=== PATIENT | female | born 1945 | race Caucasian/White ===

== ENCOUNTER → 2017-03-08 | Outpatient (CLI) | payer BC ==
[~2017-03-08] MED LIST: BUPR-79 PO; CHOL1000 PO; CRG125 PO; FERR1TAB61 PO; IPRA1AER2 INH; PERFLUTREN LIPID MICROSPHERE (DEFINITY) IV ONE; SYMIN160 INH; TRIA37.5 PO
--- NOTE | 2017-03-08 16:56 | ECHOCARDIOGRAM REPORT ---
*NOTICE TO RECEIVING CONSTITUTION PARTY AGENCY This information is strictly Confidential and protected under [place] law. [place] law prohibits you from making any further disclosure of this information unless further disclosure is expressly permitted by the written consent of the person to whom it pertains or is authorized by law. A general authorization for the release of medical or other information is not sufficient for this purpose. Hospital accepts no responsibility if the information is made available to any other person, INCLUDING THE PATIENT. Interpretation Summary * Name: MAXIMILINAO HAMMOND Study Date: 03/08/2017 01:08 PM * Patient Location: [facility] HR: 122 * : 1945 (M/d/yyyy) Gender: Female Height: 63 in * Age: 71 yrs Ethnicity: CA Weight: 165 lb * Ordering Physician: Yohana Servin * Referring Physician: Yohana Servin * Performed By: July Escalona RDCS * * Reason For Study: SOB, COPD * BSA: 1.8 m2 * -- Conclusions -- * There is mild concentric left ventricular hypertrophy. * The left ventricle is hyperdynamic. * Grade I diastolic dysfunction, (abnormal relaxation pattern). * The right atrium is moderately dilated. * Right ventricular systolic pressure is elevated at 40-50mmHg. * Compared to study from July 14, 2012, the estimated pulmonary pressures are lower, otherwise no significant change Procedure Details * A contrast injection of Definity was performed to improve assessment of LV function. * Contrast was injected into an intravenous site in the right arm. * One vial of Definity ultrasound contrast was diluted in normal saline to a total volume of 10 ml. A total of '2' ml of solution was administered during imaging. * Lot # [id number] of Definity utilized for procedure. * Expiration date MAR 14. * The attending nurse who injected the contrast agent was ALO QUILES RN. Left Ventricle * The left ventricle is normal in size. * There is mild concentric left ventricular hypertrophy. * Ejection Fraction = 55-60%. * The left ventricle is hyperdynamic. * Grade I diastolic dysfunction, (abnormal relaxation pattern). * The left ventricular wall motion is normal. Right Ventricle * The right ventricle is not well visualized. Atria * The left atrial size is normal. * The right atrium is moderately dilated. Mitral Valve * The mitral valve is not well visualized. * Significant mitral regurgitation is absent. Tricuspid Valve * The tricuspid valve is not well visualized. * There is mild tricuspid regurgitation. * Right ventricular systolic pressure is elevated at 40-50mmHg. Aortic Valve * The aortic valve is normal in structure and function. * No hemodynamically significant valvular aortic stenosis. * There is no significant aortic regurgitation. Pericardium/Pleural * Trace pericardial effusion Great Vessels * The inferior vena cava is mildly dilated. MMode 2D Measurements and Calculations IVSd 1.4 cm IVSs 2.2 cm LVIDd 4.2 cm LVIDs 2.9 cm LVPWd 1.5 cm LVPWs 2.0 cm IVS/LVPW 0.96 FS 31.0 % EDV(Teich) 78.0 ml ESV(Teich) 31.9 ml EF(Teich) 59.1 % EDV(cubed) 73.4 ml ESV(cubed) 24.1 ml EF(cubed) 67.1 % % IVS thick 52.3 % % LVPW thick 34.0 % LV mass(C)d 241.0 grams LV mass(C)dI 135.3 grams/m\S\2 LV mass(C)s 277.9 grams LV mass(C)sI 155.9 grams/m\S\2 SV(Teich) 46.1 ml SI(Teich) 25.9 ml/m\S\2 SV(cubed) 49.3 ml SI(cubed) 27.7 ml/m\S\2 LA dimension 3.0 cm LVAd ap4 18.8 cm\S\2 LVLd ap4 6.6 cm EDV(MOD-sp4) 43.5 ml LVAs ap4 11.1 cm\S\2 LVLs ap4 6.1 cm ESV(MOD-sp4) 17.8 ml EF(MOD-sp4) 59.1 % LVAd ap2 23.8 cm\S\2 LVLd ap2 7.4 cm EDV(MOD-sp2) 61.2 ml LVAs ap2 14.4 cm\S\2 LVLs ap2 7.2 cm ESV(MOD-sp2) 25.0 ml EF(MOD-sp2) 59.2 % SV(MOD-sp4) 25.7 ml SI(MOD-sp4) 14.4 ml/m\S\2 SV(MOD-sp2) 36.2 ml SI(MOD-sp2) 20.3 ml/m\S\2 Doppler Measurements and Calculations MV E max julian 77.1 cm/sec MV A max julian 122.0 cm/sec MV E/A 0.63 MV dec time 0.17 sec Ao V2 max 129.0 cm/sec Ao max PG 6.7 mmHg Ao max PG (full) 2.2 mmHg LV V1 max PG 4.5 mmHg LV V1 max 105.6 cm/sec TR max julian 325.8 cm/sec
--- NOTE | 2017-03-12 08:52 | PULMONARY FUNCTION TEST ---
CLINICAL DATA: 71-year-old female with height 63 inches and a weight of 165 pounds referred by RENÉE Villarreal for evaluation of COPD. The patient is apparently on Symbicort, Spiriva, and Ventolin. She has a history of 45 pack years of smoking. Spirometry pre- and post-bronchodilator were performed. FINDINGS: Pre-bronchodilator spirometry demonstrates severe obstructive airways disease. FVC is 42% of predicted. FEV1 is 48% of predicted. CSH99-35 was 11% of predicted. There was no significant improvement after inhaled bronchodilator. FVC improved 9%. The other parameters actually decreased. The patient appeared to be getting tired and had difficulty with the post-bronchodilator spirogram. IMPRESSION: Severe obstructive airways disease without significant improvement after inhaled bronchodilator. MTDD
== END | disposition home or self-care (01) ==
LOC: C.CPL 12:46
PROVIDERS: ATTEND Nurse Practitioner
DX: Z00.00 Encounter for general adult medical examination without abnormal findings (principal); J44.9 Chronic obstructive pulmonary disease, unspecified; I11.0 Hypertensive heart disease with heart failure; I50.1 Left ventricular failure, unspecified; I50.30 Unspecified diastolic (congestive) heart failure

== ENCOUNTER 2018-10-18 20:54 | Inpatient (IN) ==
[~2018-10-18 20:54] MED LIST changes: -BUPR-79 PO; -CHOL1000 PO; -CRG125 PO; +ETOMIDATE 2 MG/ML 20 ML VIAL IV ONE; -FERR1TAB61 PO; -IPRA1AER2 INH; +KETAMINE HCL INJ 50 MG/ML 10 ML VIAL IV ONE; -PERFLUTREN LIPID MICROSPHERE (DEFINITY) IV ONE; +ROCURONIUM BROMIDE 10 MG/ML 5 ML VIAL IV ONE; -SYMIN160 INH; -TRIA37.5 PO
[2018-10-18] MEDS ORDERED: PROPOFOL IV EMULSION 10 MG/ML 100 ML VIAL IV ONE (21:01)
[2018-10-18] MEDS ORDERED: KETAMINE HCL INJ 50 MG/ML 10 ML VIAL IV STA ×2 (21:14→21:28)
[2018-10-18] MEDS ORDERED: ALBUT/IPRATROP 3MG/0.5MG NEB 3 ML VIAL NEB ONE (21:35)
[2018-10-18 21:38] LABS: Base Excess VBG 2.5 mEq/L; Oxygen Saturation VBG 94.9 %; pH VBG 7.18 (7.36-7.41)
[2018-10-18 21:48] LABS: Albumin Level 3.5 gm/dl (3.4-5.0); BUN Creatinine Ratio 14.4 (10-20); Calcium 9.9 mg/dl (8.5-10.1); Creatinine Clr Calc Pharmacy 49.6 ml/min; Est GFR (African American) 63.5; Est GFR (Non-African American) 54.8; Magnesium 2.9 mg/dl (1.8-2.4); Potassium 4.6 mmol/L (3.5-5.1)
[2018-10-18 21:52] LABS: Albumin Globulin Ratio 0.9 (0.9-2); Bilirubin,Total 0.4 mg/dl (0.2-1); Globulin 3.8 gm/dl (2.5-4.0); Total Protein 7.3 gm/dl (6.4-8.2); Troponin I 0.021 ng/ml (0-0.045)
[2018-10-18] MEDS ORDERED: ROCURONIUM BROMIDE 10 MG/ML 10 ML VIAL IV ONE (21:54)
[2018-10-18] MEDS ORDERED: ETOMIDATE 2 MG/ML 20 ML VIAL IV ONE (21:54)
--- NOTE | 2018-10-18 21:59 | XRay Report ---
XR chest 1V portable HISTORY: Dyspnea COMPARISON: Chest 10/01/2018. FINDINGS: Emphysema. No new focal lung consolidations to suggest pneumonia. No evidence for pulmonary edema. No pleural fusions. No pneumothorax. The heart is normal in size. IMPRESSION: No significant change compared to the prior study. No acute process. Emphysema. Electronically signed by: Albert Rios M.D. 10/18/2018 9:58 PM
[2018-10-18] MEDS: PROPOFOL 1,000 MG/100 ML VIAL IV SCH ×2 (22:05→22:59)
--- NOTE | 2018-10-18 22:10 | XRay Report ---
XR chest 1V portable HISTORY: intubation COMPARISON: Chest 10/18/2018. FINDINGS: The endotracheal tube terminates approximately 2.5 cm from the eduardo. Emphysema. No new fo chace lung consolidations to suggest pneumonia. No evidence for pulmonary edema. The heart is normal in size. IMPRESSION: The endotracheal tube terminates 2.5 cm from the eduardo. Electronically signed by: Albert Rios M.D. 10/18/2018 10:09 PM
--- NOTE | 2018-10-18 22:16 | Emergency Department Note ---
Entered by Prakash Montilla acting as a scribe for Vaibhav Whittington M.D. History of Present Illness General Chief complaint: Respiratory Distress Stated complaint: RESP. DISTRESS Source: EMS History of Present Illness Onset (ago): hour(s) (prior to arrival) Location: chest (respiratory distress) Pain Consistency: + other (worsening) Relieved By: + none Associated symptoms: + shortness of breath and + other (episodes of V-tach) Treatments prior to arrival: other (125 mg solumedrol, 4 duonebs, 1 gram magnesium ) The patient is a 72 year old F who presents to the Emergency Room with complaints of worsening respiratory issues that started prior to arrival. The majority of the HPI was provided by EMS. EMS states that the patient is experiencing shortness of breath. EMS adds that in the ambulance, the patient was experiencing episodes of V-tach. EMS notes that the patient was given 125 mg of solumedrol, 4 duonebs, and 1 gram of magnesium in the ambulance. The patient has a history of anxiety, hypertension, heart disease, and COPD. At 2129, the patient's called into the ED to provide the rest of the HPI. He states that the patient has worsening shortness of breath starting today. He denies that the patient has any other complaints. He adds that this has happened with the patient before due to her COPD. He notes that he will come into the hospital tomorrow to see the patient. The HPI is limited due to the patient�s condition. Home Medications Home Medications Medication Instructions Recorded Confirmed Type albuterol sulfate [Proventil HFA] 2 puff INHALATION UD PRN 10/18/18 10/18/18 History amlodipine 5 mg PO DAILY 10/18/18 10/18/18 History atorvastatin 40 mg PO HS 10/18/18 10/18/18 History budesonide-formoterol [Symbicort] 2 puff INHALATION BID 10/18/18 10/18/18 History bupropion HCl [Wellbutrin SR] 150 mg PO DAILY 10/18/18 10/18/18 History carvedilol 12.5 mg PO BID 10/18/18 10/18/18 History cholecalciferol (vitamin D3) 2,000 unit PO DAILY 10/18/18 10/18/18 History [Vitamin D3] tiotropium bromide [Spiriva with 1 cap INHALATION DAILY 10/18/18 10/18/18 History HandiHaler] triamterene-hydrochlorothiazid 1 cap PO DAILY 10/18/18 10/18/18 History Allergies Allergy/AdvReac Type Severity Reaction Status Date / Time No Known Allergies Allergy Unverified 03/11/14 01:27 Past Med/Surg History Medical History Anxiety (Chronic) Hypertension (Chronic) Heart disease (Chronic) COPD (chronic obstructive pulmonary disease) (Chronic) Family History Other No significant family history Social History Preferred Language: Uzbek marital status: Current Living Situation: Spouse Feels Safe at Home: Yes Smoking Status: Current every day smoker Tobacco Type: cigarettes packs per day: 0.5 Hx Alcohol Use: No Hx Substance Use: No Review of Systems See HPI for pertinent positives & negatives. The ROS is limited due to the patient's condition. Physical Exam Vital Signs Vital Signs - 24 hr 10/18/18 21:05 10/18/18 21:17 10/18/18 21:31 Temperature 37.2 C Temperature Source Axillary Sepsis Recent Fever Within 48 Hours No Sepsis Action Taken by Nursing No Action Required End-Tidal CO2 Pulse Rate 143 H 143 H Pulse Rate [Right Finger] Pulse Rate from SpO2 Sensor Pulse Rhythm Irregular Pulse Rhythm [Right Finger] Pulse Strength Normal Pulse Strength [Right Finger] Respiratory Rate 36 H 28 H Respiratory Effort / Characteristics Spontaneous Labored Labored Short of Breath Respiratory Depth Normal Deep Respiratory Pattern Regular Tachypnea Blood Pressure 148/108 H Blood Pressure [Left Arm] Blood Pressure Mean 121 Blood Pressure Mean [Left Arm] Blood Pressure Position Sitting Pulse Oximetry 96 95 94 Oxygen Delivery Method BiPAP BiPAP Fraction of Inspired Oxygen 50 SaO2/FiO2 Ratio 10/18/18 21:32 10/18/18 21:42 10/18/18 21:59 Temperature Temperature Source Sepsis Recent Fever Within 48 Hours Sepsis Action Taken by Nursing End-Tidal CO2 48 Pulse Rate 118 H Pulse Rate [Right Finger] 133 H Pulse Rate from SpO2 Sensor Pulse Rhythm Pulse Rhythm [Right Finger] Regular Pulse Strength Pulse Strength [Right Finger] Respiratory Rate 24 16 Respiratory Effort / Characteristics Spontaneous Respiratory Depth Deep Respiratory Pattern Blood Pressure Blood Pressure [Left Arm] 131/99 Blood Pressure Mean Blood Pressure Mean [Left Arm] 109 Blood Pressure Position Pulse Oximetry 94 96 Oxygen Delivery Method BiPAP Fraction of Inspired Oxygen 40 40 30 SaO2/FiO2 Ratio 235 10/18/18 22:23 10/18/18 22:30 10/18/18 22:45 Temperature Temperature Source Sepsis Recent Fever Within 48 Hours Sepsis Action Taken by Nursing End-Tidal CO2 62 Pulse Rate 129 H Pulse Rate [Right Finger] 130 H Pulse Rate from SpO2 Sensor 129 H Pulse Rhythm Pulse Rhythm [Right Finger] Regular Pulse Strength Pulse Strength [Right Finger] Normal Respiratory Rate 16 Respiratory Effort / Characteristics Non-Labored Mechanically Ventilated Respiratory Depth Normal Respiratory Pattern Regular Blood Pressure Blood Pressure [Left Arm] 169/91 H Blood Pressure Mean Blood Pressure Mean [Left Arm] 117 Blood Pressure Position Pulse Oximetry 98 98 Oxygen Delivery Method Mechanical Vent Mechanical Vent Mechanical Vent Fraction of Inspired Oxygen 30 30 SaO2/FiO2 Ratio 326 10/18/18 22:46 Temperature Temperature Source Sepsis Recent Fever Within 48 Hours Sepsis Action Taken by Nursing End-Tidal CO2 62 Pulse Rate 139 H Pulse Rate [Right Finger] Pulse Rate from SpO2 Sensor 129 H Pulse Rhythm Pulse Rhythm [Right Finger] Pulse Strength Pulse Strength [Right Finger] Respiratory Rate Respiratory Effort / Characteristics Respiratory Depth Respiratory Pattern Blood Pressure 175/94 H Blood Pressure [Left Arm] Blood Pressure Mean 121 Blood Pressure Mean [Left Arm] Blood Pressure Position Pulse Oximetry 98 Oxygen Delivery Method Mechanical Vent Fraction of Inspired Oxygen 30 SaO2/FiO2 Ratio GENERAL: Awake, alert, agitated-appearing, pulling at BiPAP mask. HENT: Normocephalic, atraumatic. EYES: Normal conjunctiva. Sclera non-icteric. NECK: Supple. No nuchal rigidity. RESPIRATORY: Tachypneic, minimal breath sounds appreciated. Increased WOB. CARDIAC: Tachycardic rate. Normal rhythm. Extremities warm and well perfused. GI: Soft, non-distended. No tenderness to palpation. No rebound or guarding. No masses. MUSCULOSKELETAL: Atraumatic. Chest examination reveals no tenderness. LOWER EXTREMITIES: Calves are equal size bilaterally and non-tender. 2+ bilateral lower extremity swelling. NEURO: Normal sensorium. No sensory or motor deficits noted. No facial droop. SKIN: Warm and dry. No jaundice noted. Procedures Intubation Time out performed: Yes sedative: Etomidate Mg Given: 15 paralytic: Rocuronium Mg Given: 100 Laryngoscope: other (glidescope) ET Tube Size: 7 ET Tube Uncuffed: Yes Tube Secured Depth (cm): 22 Tube Secured Location: teeth Tube Placement Confirmation: visualized tube passing through cords, equal breath sounds bilaterally and no breath sounds over epigastrium Patient Tolerated Procedure: well and no complications Intubation Complications: none Course 2100: Past medical records reviewed. The patient was evaluated in room B1. A complete history and physical exam was performed. 2129: The patient's called into the ED to provide more of the patient's HPI. 2149: I performed an intubation procedure on the patient. 2206: I reviewed the patient's case with Dr. Honorio Montes De Oca, Critical Care [employer] [place]. 2244: I reviewed the patient's case with Dr. Victor Manuel Velazco, [facility] Hospitalist. He will evaluate the patient for further management. Consultations Consultation #1: I reviewed the patient's case with Dr. Honorio Montes De Oca, [facility] [employer]. Time: 22:07 Consultation #2: I reviewed the patient's case with Dr. Victor Manuel Velazco, [facility] Hospitalist. He will evaluate the patient for further management. Time: 22:45 Administered Medications Propofol (Diprivan) 1,000 mg in 100 mls @ 2.46 mls/hr IV .Q24H MARTA; Protocol Stop: 10/21/18 21:59 Last Admin: 10/18/18 22:59 Dose: 5 mcg/kg/min, 2.5 mls/hr Documented by: [id number] Cosigned by: [id number] Discontinued Medications Albuterol (Duoneb) 12 ml NEB ONE ONE Stop: 10/18/18 21:36 Last Admin: 10/18/18 21:58 Dose: 12 ml Documented by: [id number] Etomidate (Amidate) 15 mg IV NOW ONE Stop: 10/18/18 21:55 Last Admin: 10/18/18 21:46 Dose: 15 mg Documented by: [id number] Furosemide (Lasix) 40 mg IV NOW STA Stop: 10/18/18 22:48 Last Admin: 10/18/18 23:03 Dose: 40 mg Documented by: [id number] Ketamine HCl (Ketalar Steri-Vial) 60 mg IV NOW STA Stop: 10/18/18 21:15 Last Admin: 10/18/18 21:15 Dose: 60 mg Documented by: [id number] Ketamine HCl (Ketalar Steri-Vial) 40 mg IV NOW STA Stop: 10/18/18 21:29 Last Admin: 10/18/18 21:30 Dose: 40 mg Documented by: [id number] Propofol (Diprivan) Confirm Administered Dose 1,000 mg IV .STK-MED ONE Stop: 10/18/18 21:02 Last Admin: 10/18/18 21:53 Dose: 1,000 mg Documented by: [id number] Cosigned by: [id number] Rocuronium Randolph (Zemuron) 100 mg IV ONE ONE Stop: 10/18/18 21:55 Last Admin: 10/18/18 21:46 Dose: 100 mg Documented by: [id number] Cosigned by: [id number] Medical Decision Making Differential Diagnosis Differential diagnosis includes: infections, reactive airway disease, pneumonia, pneumothorax, COPD, CHF, cardiac ischemia, pulmonary embolism, musculoskeletal, gastrointestinal, as well as others were entertained. Medical Records Attestation: I reviewed the patient's medical records. Home Medications Current Medication List: was personally reviewed by me Laboratory Data Attestation: I reviewed the patient's lab results. Result diagrams: 10/18/18 21:15 10/18/18 21:15 Lab Results 10/18/18 10/18/18 10/18/18 Range/Units 21:15 21:15 21:22 WBC 21.46 H (4.8-10.8) K/uL RBC 4.24 (4.2-5.4) M/uL Hgb 12.3 (12.0-16.0) g/dL Hct 39.1 (37-47) % MCV 92.2 (80-100) fL MCH 29.0 (25-34) pg MCHC 31.5 L (32-36) g/dL RDW Std Deviation 50.7 H (36.4-46.3) fL RDW Coeff of Michelle 15.0 H (11.5-14.5) % Plt Count 301 (130-400) K/uL MPV 12.4 H (7.4-10.4) fL Immature Gran % (Auto) 0.7 % Neut % (Auto) 64.4 % Lymph % (Auto) 23.6 % [place] % (Auto) 7.9 % Eos % (Auto) 3.2 % Baso % (Auto) 0.2 % Immature Gran # (Auto) 0.15 H (0.00-0.02) K/uL Neut # (Auto) 13.81 H (1.4-6.5) K/uL Lymph # (Auto) 5.07 H (1.2-3.4) K/uL [place] # (Auto) 1.70 H (0.11-0.59) K/uL Eos # (Auto) 0.68 H (0-0.5) K/uL Baso # (Auto) 0.05 (0-0.2) K/uL RBC Morphology Unremarkable VBG pH (7.36-7.41) VBG pCO2 (38-50) mmHg VBG pO2 mmHg VBG HCO3 mmol/L VBG O2 Saturation % VBG Base Excess mEq/L Barometric Pressure mm/Hg Sodium 138 (136-145) mmol/L Potassium 4.6 (3.5-5.1) mmol/L Chloride 100 (98-107) mmol/L Carbon Dioxide 34 H (21-32) mmol/L Anion Gap 5.0 (3-11) BUN 15 (7-18) mg/dl Creatinine 1.01 (0.6-1.2) mg/dl Est Cr Clr Drug Dosing 49.6 ml/min Est GFR ( Amer) 63.5 Est GFR (Non-Af Amer) 54.8 BUN/Creatinine Ratio 14.4 (10-20) Glucose 199 H (70-99) mg/dl POC Lactic Acid Miko 1.15 (0.90-1.70) mmol/L Calcium 9.9 (8.5-10.1) mg/dl Magnesium 2.9 H (1.8-2.4) mg/dl Total Bilirubin 0.4 (0.2-1) mg/dl AST 16 (15-37) U/L ALT 19 (12-78) U/L Alkaline Phosphatase 105 (45-117) U/L Troponin I 0.021 (0-0.045) ng/ml NT-Pro-B Natriuret Pep 171 (0-900) pg/ml Total Protein 7.3 (6.4-8.2) gm/dl Albumin 3.5 (3.4-5.0) gm/dl Globulin 3.8 (2.5-4.0) gm/dl Albumin/Globulin Ratio 0.9 (0.9-2) Urine Color Urine Appearance (Clear) Urine pH (4.5-7.5) Ur Specific St[place]ett (1.000-1.030) Urine Protein (Negative) Urine Glucose (UA) (Negative) Urine Ketones (Negative) Urine Blood (Negative) Urine Nitrite (Negative) Urine Bilirubin (Negative) Urine Urobilinogen (Negative) Ur Leukocyte Esterase (Negative) Urine WBC (Auto) (0-5) /hpf Urine RBC (Auto) (0-4) /hpf U Hyaline Cast (Auto) (0-5) /lpf U Epithel Cells (Auto) (0-5) /lpf Urine Bacteria (Auto) (Negative) Ur Renal Epithelial Cell (0-5) /lpf 10/18/18 10/18/18 Range/Units 21:23 22:20 WBC (4.8-10.8) K/uL RBC (4.2-5.4) M/uL Hgb (12.0-16.0) g/dL Hct (37-47) % MCV (80-100) fL MCH (25-34) pg MCHC (32-36) g/dL RDW Std Deviation (36.4-46.3) fL RDW Coeff of Michelle (11.5-14.5) % Plt Count (130-400) K/uL MPV (7.4-10.4) fL Immature Gran % (Auto) % Neut % (Auto) % Lymph % (Auto) % [place] % (Auto) % Eos % (Auto) % Baso % (Auto) % Immature Gran # (Auto) (0.00-0.02) K/uL Neut # (Auto) (1.4-6.5) K/uL Lymph # (Auto) (1.2-3.4) K/uL [place] # (Auto) (0.11-0.59) K/uL Eos # (Auto) (0-0.5) K/uL Baso # (Auto) (0-0.2) K/uL RBC Morphology VBG pH 7.18 L (7.36-7.41) VBG pCO2 92 H (38-50) mmHg VBG pO2 89 mmHg VBG HCO3 34 mmol/L VBG O2 Saturation 94.9 % VBG Base Excess 2.5 mEq/L Barometric Pressure 734.4 mm/Hg Sodium (136-145) mmol/L Potassium (3.5-5.1) mmol/L Chloride (98-107) mmol/L Carbon Dioxide (21-32) mmol/L Anion Gap (3-11) BUN (7-18) mg/dl Creatinine (0.6-1.2) mg/dl Est Cr Clr Drug Dosing ml/min Est GFR ( Amer) Est GFR (Non-Af Amer) BUN/Creatinine Ratio (10-20) Glucose (70-99) mg/dl POC Lactic Acid Miko (0.90-1.70) mmol/L Calcium (8.5-10.1) mg/dl Magnesium (1.8-2.4) mg/dl Total Bilirubin (0.2-1) mg/dl AST (15-37) U/L ALT (12-78) U/L Alkaline Phosphatase (45-117) U/L Troponin I (0-0.045) ng/ml NT-Pro-B Natriuret Pep (0-900) pg/ml Total Protein (6.4-8.2) gm/dl Albumin (3.4-5.0) gm/dl Globulin (2.5-4.0) gm/dl Albumin/Globulin Ratio (0.9-2) Urine Color Yellow Urine Appearance Cloudy A (Clear) Urine pH 6.0 (4.5-7.5) Ur Specific [place]ett 1.019 (1.000-1.030) Urine Protein 2+ H (Negative) Urine Glucose (UA) Negative (Negative) Urine Ketones Negative (Negative) Urine Blood 1+ H (Negative) Urine Nitrite Negative (Negative) Urine Bilirubin Negative (Negative) Urine Urobilinogen Negative (Negative) Ur Leukocyte Esterase Negative (Negative) Urine WBC (Auto) 1-5 (0-5) /hpf Urine RBC (Auto) 5-10 H (0-4) /hpf U Hyaline Cast (Auto) 1-5 (0-5) /lpf U Epithel Cells (Auto) >30 H (0-5) /lpf Urine Bacteria (Auto) Negative (Negative) Ur Renal Epithelial Cell 0-5 (0-5) /lpf Imaging Data Radiologist's Impression: Radiology results as stated below per my review and the radiologist's interpretation: XR chest 1V portable HISTORY: Dyspnea COMPARISON: Chest 10/01/2018. FINDINGS: Emphysema. No new focal lung consolidations to suggest pneumonia. No evidence for pulmonary edema. No pleural fusions. No pneumothorax. The heart is normal in size. IMPRESSION: No significant change compared to the prior study. No acute process. Emphysema. Electronically signed by: Albert Rios M.D. 10/18/2018 9:58 PM XR chest 1V portable HISTORY: intubation COMPARISON: Chest 10/18/2018. FINDINGS: The endotracheal tube terminates approximately 2.5 cm from the eduardo. Emphysema. No new focal lung consolidations to suggest pneumonia. No evidence for pulmonary edema. The heart is normal in size. IMPRESSION: The endotracheal tube terminates 2.5 cm from the eduardo. Electronically signed by: Albert Rios M.D. 10/18/2018 10:09 PM ECG Data Attestation: I personally reviewed and interpreted this ECG as follows: Indication: SOB/dyspnea Rate (beats per minute): 144 Rhythm: sinus tachycardia Findings: + ST depression (Lateral); no PVC Blood Pressure Blood Pressure Findings: Elevated blood pressure Blood Pressure Disposition: further management by hospitalist MAGALY Narrative Patient is a 72-year-old female history of COPD presenting today with severe respiratory distress for EMS. Patient agitated on CPAP here stating she cannot breathe. Limited ability to obtain history. Patient does not report pain. Is a little bit of leg swelling. Was significant hypertensive and was hypoxic for EMS. Was oxygenating okay and tried some ketamine for her agitation to see if you tolerate BiPAP. Patient continued to have issues with agitation and decision was made proceed with intubation. Contact the patient's who was made aware of her status; he was unable to give clear code status. Chest x- ray does not show evidence of pneumonia pneumothorax. Lower suspicion this is PE. Patient received Solu-Medrol and magnesium was for DuoNeb's prior to arrival. Given his a DuoNeb's here. Sinus tachycardia notable and somewhat improved after intubation. Believe is likely adrenergic driven. Slight detectable but not abnormal troponin again I feel is more likely demand. Given additional DuoNeb here while on the ventilator. Intubated without complication. ICU doctor made aware. [facility] hospitalist contacted for admission. D-dimer was sent and given some Lasix for question of volume overload. BNP is not significantly elevated. 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 No significant ectopy here. Impression & Plan Acute respiratory failure with hypercapnia Critical Care Time I have personally spent 45 minutes of critical care time in the direct management of this patient. This includes bedside care, interpretation of diagnostic studies, and testing, discussion with consultants, patient, and family members, and other required patient management activities. This 45 minutes is in excess of all separately billable procedures. Critical Care Time: Yes Discharge Plan Visit Data Chief Complaint: Respiratory Distress Stated Complaint: RESP. DISTRESS ED Provider: Vaibhav Whittington Discharge Problem: Acute respiratory failure with hypercapnia Patient Disposition: Admitted As Inpatient Discharge Instructions Interventions: ED Discharge Assessment Last Done: 10/18/18 23:38 The scribe's documentation has been prepared under my direction and personally reviewed by me in its entirety. I confirm that the note above accurately reflects all work, treatment, procedures, and medical decision making performed by me.
[2018-10-18 22:31] LABS: Appearance Urine Cloudy (Clear); Bacteria Urine Automated Negative (Negative); Bilirubin Urine Negative (Negative); Blood Urine 1+ (Negative); Color Urine Yellow; Epithelial Cell Urine Auto >30 /lpf (0-5); Glucose Urine UA Negative (Negative); Ketones Urine Negative (Negative); Leukocyte Esterase Urine Negative (Negative); Nitrite Urine Negative (Negative); Protein Urine 2+ (Negative); Specific Gravity Urine 1.019 (1.000-1.030); Urobilinogen Urine Negative (Negative)
[2018-10-18 22:43] LABS: Renal Epithelial Cells Urine 0-5 /lpf (0-5)
[2018-10-18] MEDS ORDERED: FUROSEMIDE 40 MG/4 ML VIAL IV STA (22:47)
[2018-10-18 22:50] LABS: Hematocrit (blood only) 39.1 % (37-47); Hemoglobin 12.3 g/dL (12.0-16.0); Mean Corpuscular Hgb Conc 31.5 g/dL (32-36); Mean Corpuscular Volume 92.2 fL (80-100); Mean Platelet Volume 12.4 fL (7.4-10.4); Platelet Count 301 K/uL (130-400); RDW Standard Deviation 50.7 fL (36.4-46.3); Red Blood Count 4.24 M/uL (4.2-5.4); White Blood Count 21.46 K/uL (4.8-10.8)
[2018-10-18] MEDS ORDERED: ICU PROTOCOL FOR HYPERGLYCEMIA PRN (22:50)
[2018-10-18] MEDS ORDERED: PROPOFOL 1,000 MG/100 ML VIAL IV SCH (23:00)
--- NOTE | 2018-10-18 23:02 | History & Physical Report ---
Date of Service October 18, 2018 Assessment & Plan (1) Acute respiratory failure with hypercapnia: 72 y/o F Hx COPD, HTN, HLD, diastolic CHF, history of PE. Presents from home with respiratory distress. Apparently she had progressive dyspnea over the past 2 days. She arrived at the hospital tachypneic, severely hypertensive and mentating poorly. She was emergently intubated therefore. The pt is unable to provide a history at present. Attempts to contact her have been unsuccessful at the time of admission. The ER attending was able to speak with her and noted that he did not display a command of her medical history. A history is therefore aggregated from prior medical records. Initial labs are notable for respiratory acidosis with a C02 of 90 and leukocytosis. A CXR is reported as clear. 1) Hypercapnic respiratory failure - likely COPD exacerbation - Pt is intubated - scheduled nebs, IV steroids, antibiotics. 2) CHF - question of exacerbation - she has LE edema and diastolic dysfunction on echo 2016. Provided with an initial 40mg Lasix in the ER - I/O, daily weights. repeat echo ordered for AM. Cont Carvedilol 3) Hypetensive urgency - SBP 240 on arrival - has improved with vent - will apply NTG x 1. Takes Triamterene/HCTZ normally - held in favor of Lasix. PRN Hydralazine ordered. 4) DM - Glu 199 on admission - sliding scale coverage. 5) HKD - cont statin 6) History of PE - CTA pending Full code - Lovenox Total time for this admit including review of labs, meds, imaging, records - discussion with pt and ER attending - [facility] critical care time - 45 min History of Present Illness Chief Complaint: respiratory distress Primary Care Provider: Yohana Servin 72 y/o F Hx COPD, HTN, HLD, diastolic CHF, history of PE. Presents from home with respiratory distress. Apparently she had progressive dyspnea over the past 2 days. She arrived at the hospital tachypneic, severely hypertensive and mentating poorly. She was emergently intubated therefore. The pt is unable to provide a history at present. Attempts to contact her have been unsuccessful at the time of admission. The ER attending was able to speak with her and noted that he did not display a command of her medical history. A history is therefore aggregated from prior medical records. Initial labs are notable for respiratory acidosis with a C02 of 90 and leukocytosis. A CXR is reported as clear. PMH: 1) HTN 2) HLD 3) Grade I diastolic CHF - echo 2016 4) History of PE 5) DM II - may not be treated 6) Obese 7) COPD Surgical: not known Social: Per records - does not smoke or drink Family: DM, HTN Allergies Allergy/AdvReac Type Severity Reaction Status Date / Time No Known Allergies Allergy Unverified 03/11/14 01:27 Home Medications Home Medications Medication Instructions Recorded Confirmed Type albuterol sulfate [Proventil HFA] 2 puff INHALATION UD PRN 10/18/18 10/18/18 History amlodipine 5 mg PO DAILY 10/18/18 10/18/18 History atorvastatin 40 mg PO HS 10/18/18 10/18/18 History budesonide-formoterol [Symbicort] 2 puff INHALATION BID 10/18/18 10/18/18 History bupropion HCl [Wellbutrin SR] 150 mg PO DAILY 10/18/18 10/18/18 History carvedilol 12.5 mg PO BID 10/18/18 10/18/18 History cholecalciferol (vitamin D3) 2,000 unit PO DAILY 10/18/18 10/18/18 History [Vitamin D3] tiotropium bromide [Spiriva with 1 cap INHALATION DAILY 10/18/18 10/18/18 History HandiHaler] triamterene-hydrochlorothiazid 1 cap PO DAILY 10/18/18 10/18/18 History Past Med/Surg History Medical History Anxiety (Chronic) Hypertension (Chronic) Heart disease (Chronic) COPD (chronic obstructive pulmonary disease) (Chronic) Family History Other No significant family history Social History Preferred Language: Belarusian marital status: Current Living Situation: Spouse Feels Safe at Home: Yes Smoking Status: Current every day smoker Tobacco Type: cigarettes packs per day: 0.5 Hx Alcohol Use: No Hx Substance Use: No Review of Systems Review of Systems: Cannot obtain Physical Exam Physical Exam: General: Sedated/intubated - received paralytic ENT: No erythema or exudates, no thrush Eyes: NICHOLAS, EOMI Head and neck: Normocephalic, atraumatic - JVD exam was not possible due to habitus Chest/heart: Nontender, S1,2, RRR, no murmurs, no gallops Lungs: Poor air movement - exam is compromised by vent noises Abdomen: Nontender, nondistended, BS+ Neuro: Deferred - pupils are equal - received paralytic and propofol Musculoskeletal: No joint inflammation, muscle tenderness, FROM Skin: No acute rashes or ulcers Extremities: ++ edema no CC Results & Data Vital Signs (Past 12 Hours) Vital Signs Temp Pulse Pulse Resp BP BP Pulse Ox 10/18/18 22:30 130 H 16 169/91 H 98 10/18/18 21:59 118 H 16 96 10/18/18 21:42 133 H 24 131/99 94 10/18/18 21:31 94 10/18/18 21:17 99.0 F 143 H 28 H 148/108 H 95 10/18/18 21:05 143 H 36 H 96
[2018-10-18 23:06] LABS: Basophils # (auto) 0.05 K/uL (0-0.2); Basophils % (auto) 0.2 %; Eosinophils # (auto) 0.68 K/uL (0-0.5); Eosinophils % (auto) 3.2 %; Immature Granulocytes # (auto) 0.15 K/uL (0.00-0.02); Immature Granulocytes % (auto) 0.7 %; Lymphocytes # (auto) 5.07 K/uL (1.2-3.4); Lymphocytes % (auto) 23.6 %; Monocytes % (auto) 7.9 %; Neutrophils # (auto) 13.81 K/uL (1.4-6.5); Neutrophils % (auto) 64.4 %; RBC Morphology Unremarkable
[2018-10-18] MEDS ORDERED: GLUCAGON FOR INJ 1 MG VIAL IM PRN (23:30)
[2018-10-18] MEDS ORDERED: CARBOHYDRATES FOR HYPOGLYCEMIA PO PRN (23:30)
[2018-10-18] MEDS ORDERED: DEXTROSE 50% 50 ML SYRINGE IV PRN (23:30)
[2018-10-18] MEDS ORDERED: GLUCOSE 40% GEL 15 GM TUBE PO PRN (23:30)
[2018-10-18] MEDS ORDERED: GLUCOSE 10 TABS/TUBE PO PRN (23:30)
[2018-10-19 00:08] LABS: D Dimer 460 ug/L FEU (0-500)
[2018-10-19] MEDS ORDERED: PROPOFOL 1,000 MG/100 ML VIAL IV SCH (00:45)
[2018-10-19 00:48] LABS: iSTAT Arterial Blood Gas HCO3 34 meg/L (19-24); iSTAT Carbon Dioxide 36 mEq/l (24-31); iSTAT FiO2 40 %; iSTAT Site L Radial
[2018-10-19] MEDS ORDERED: IOVERSOL 100ml IV PRN (01:11)
[2018-10-19] MEDS: INSULIN ASPART 100 UNITS/ML 3 ML PEN SC SCH ×5 (01:40→21:49)
[2018-10-19] MEDS: LEVOFLOXACIN/D5W 500 MG/100 ML BAG IV SCH (01:41)
[2018-10-19] MEDS: methylPREDNISolone 60 MG in SYRINGE 0 ML IV SCH ×4 (01:42→19:30)
[2018-10-19] MEDS: NITROGLYCERIN 2% OINTMENT 30GM TUBE EXT ONE ×2 (01:54→02:05)
[2018-10-19] MEDS ORDERED: PNEUMOCOCCAL POLYSACCHARIDES 25 MCG/0.5 ML VIAL/SYR IM ONE (04:45)
[2018-10-19] MEDS ORDERED: PNEUMOCOCCAL ADMINISTRATION CHARGE ONE (04:45)
[2018-10-19 04:49] LABS: Prothrombin Time 10.1 Seconds (9.0-12.0)
[2018-10-19] MEDS: PROPOFOL 1,000 MG/100 ML VIAL IV SCH ×2 (05:15→08:17)
--- NOTE | 2018-10-19 06:22 | CT Scan Report ---
CT chest w con CT DOSE: 513.06 mGy.cm HISTORY: Dyspnea. Chest pain. chf vs COPD - hist of PE TECHNIQUE: Multiaxial CT images of the chest were performed following the intravenous administration of contrast. A dose lowering technique was utilized adhering to the principles of ALARA. COMPARISON: 10/03/2018 FINDINGS: Emphysematous change. Endotracheal tube 2 cm above the eduardo. Mild bibasilar atelectatic c hange. Moderate atherosclerotic change thoracic aorta. No significant or central pulmonary emboli. IMPRESSION: 1. Bibasilar parenchymal atelectatic and/or infiltrative change. 2. Emphysematous change. 3. Study is otherwise negative. The above report was generated using voice recognition software. It may contain grammatical, syntax or spelling errors. Electronically signed by: Piyush Lewis M.D. 10/19/2018 6:21 AM
[2018-10-19] MEDS: ALBUT/IPRATROP 3MG/0.5MG NEB 3 ML VIAL NEB SCH ×3 (07:14→18:52)
[2018-10-19 07:19] LABS: Basophils # (auto) 0.01 K/uL (0-0.2); Basophils % (auto) 0.1 %; Hematocrit (blood only) 37.4 % (37-47); Hemoglobin 11.4 g/dL (12.0-16.0); Immature Granulocytes # (auto) 0.05 K/uL (0.00-0.02); Immature Granulocytes % (auto) 0.3 %; Lymphocytes # (auto) 0.23 K/uL (1.2-3.4); Lymphocytes % (auto) 1.2 %; Mean Corpuscular Volume 91.7 fL (80-100); Mean Platelet Volume 11.6 fL (7.4-10.4); Monocytes # (auto) 0.32 K/uL (0.11-0.59); Monocytes % (auto) 1.7 %; Neutrophils # (auto) 18.56 K/uL (1.4-6.5); Neutrophils % (auto) 96.7 %; Platelet Count 167 K/uL (130-400); RDW Coefficient of Variation 14.8 % (11.5-14.5); RDW Standard Deviation 50.4 fL (36.4-46.3); Red Blood Count 4.08 M/uL (4.2-5.4); White Blood Count 19.17 K/uL (4.8-10.8)
[2018-10-19 07:39] LABS: Mean Corpuscular Hgb Conc 30.5 g/dL (32-36)
[2018-10-19 07:40] LABS: Albumin Level 3.2 gm/dl (3.4-5.0); BUN Creatinine Ratio 13.8 (10-20); Calcium 9.3 mg/dl (8.5-10.1); Creatinine Clr Calc Pharmacy 39.8 ml/min; Est GFR (African American) 49.1; Est GFR (Non-African American) 42.3; Magnesium 2.2 mg/dl (1.8-2.4)
[2018-10-19 07:43] LABS: Albumin Globulin Ratio 0.9 (0.9-2); Bilirubin,Total 0.6 mg/dl (0.2-1); Globulin 3.4 gm/dl (2.5-4.0); Total Protein 6.6 gm/dl (6.4-8.2)
[2018-10-19] MEDS ORDERED: PERFLUTREN LIPID MICROSPHERE (DEFINITY) IV ONE (07:43)
[2018-10-19] MEDS: ENOXAPARIN INJ 40 MG/0.4 ML SYR SQ SCH (08:17)
--- NOTE | 2018-10-19 08:37 | Critical Care Consultation ---
Date of Consultation October 19, 2018 Assessment & Plan (1) Admitted to intensive care unit: Reason Critically Ill: Acute Hypercapnic Resp Failure requiring mechanical ventilation NEURO ICU CAM NEGATIVE No other acute concerns CV HTN Cont Amlodipine 5 mg daily Hypertensive Urgency on arrival. Resolved. Resume Triamterene/HCTZ daily HLD Cont Atorvastatin 40 mg daily CHF ECHO 2017: Grade I diastolic dysfunction, EF 55-60% Repeat ECHO pending Cont carvedilol 12.5 mg BID RESP Acute Hypercapnic Resp Failure Like 2/2 COPD Exacerbation Extubated today. Sating well on 3L NC Cont on Levofloxacin Cont MARTA nebs and IV steroids. Switch to PO tomorrow and taper H/O PE --> CTA: no evidence of PE ABD/GI Advanced diet No other acute concerns RENAL/ Lytes stable No acute concerns ENDO DM2- noninsulin dependent ICU Hyperglycemia protocol ID No acute concern for infectious etiology Cont Levofloxacin as above Cont trend fever curve HEME Stable H/H Cont trend daily LINES/IV ACCESS PIV x2. Andrade. DVT Prophylaxis: Lovenox Full Code Dispo: Stable for Downgrade out of ICU Supervising Physician Co-Signing Physician Notes Dr. Piedra was resident physician during care of patient. I separately evaluated patient for juarez portions of the history and the exam. I was present during the critical portion of medical decision making, and I discussed the case with the resident. I generally agree with the findings and plan. Hypercarbic respiratory failure, patient is alert and following commands neph - 29, parameters within adequate limits we will proceed with extubation at this time. History of Present Illness Attending Physician: Victor Manuel Velazco MD History of Present Illness History obtained from chart review and admitting physician's note. [facility] and further hx unobtainable. No family at bedside at time of consultation. 72 y/o F Hx COPD, HTN, HLD, diastolic CHF, history of PE. Presents from home with respiratory distress. Apparently she had progressive dyspnea over the past 2 days. She arrived at the hospital tachypneic, severely hypertensive and mentating poorly. She was emergently intubated therefore. The pt is unable to provide a history at present. Attempts to contact her have been unsuccessful at the time of admission. The ER attending was able to speak with her and noted that he did not display a command of her medical history. A history is therefore aggregated from prior medical records. Initial labs are notable for respiratory acidosis with a C02 of 90 and leukocytosis. A CXR is reported as clear. PMH: 1) HTN 2) HLD 3) Grade I diastolic CHF - echo 2016 4) History of PE 5) DM II - may not be treated 6) Obese 7) COPD Surgical: not known Social: Per records - does not smoke or drink Family: DM, HTN Allergies Allergies Allergy/AdvReac Type Severity Reaction Status Date / Time No Known Allergies Allergy Unverified 03/11/14 01:27 Home Medications Home Medications Medication Instructions Recorded Confirmed Type albuterol sulfate [Proventil HFA] 2 puff INHALATION UD PRN 10/18/18 10/18/18 History amlodipine 5 mg PO DAILY 10/18/18 10/18/18 History atorvastatin 40 mg PO HS 10/18/18 10/18/18 History budesonide-formoterol [Symbicort] 2 puff INHALATION BID 10/18/18 10/18/18 History bupropion HCl [Wellbutrin SR] 150 mg PO DAILY 10/18/18 10/18/18 History carvedilol 12.5 mg PO BID 10/18/18 10/18/18 History cholecalciferol (vitamin D3) 2,000 unit PO DAILY 10/18/18 10/18/18 History [Vitamin D3] tiotropium bromide [Spiriva with 1 cap INHALATION DAILY 10/18/18 10/18/18 Hi story HandiHaler] triamterene-hydrochlorothiazid 1 cap PO DAILY 10/18/18 10/18/18 History Patient History Medical History Anxiety (Chronic) Hypertension (Chronic) Heart disease (Chronic) COPD (chronic obstructive pulmonary disease) (Chronic) Family History Other No significant family history Social History Preferred Language: Surinamese Communication Ability: Effective Collaborating Supervising Physician Required: No Beliefs That Will Affect Care: None marital status: Current Living Situation: Spouse Feels Safe at Home: Yes Smoking Status: Unknown if ever smoked Review of Systems Review of Systems: Unobtainable due to [facility] Vent Physical Exam Constitutional: WD/WN, vitals as above Eyes: PERRL, conjunctivae normal, anicteric sclerae Respiratory: Diminished Lung sounds. Some expiratory wheezing and crackles auscultated. Cardiovascular: RRR, no murmur, no edema Gastrointestinal (Abdomen): normal bowel sounds, soft, nontender, no hepatosplenomegaly Skin: bruising on forearms Psychiatric: A+Ox3, euthymic affect Lymphatic: 1+ LE edema Results & Data Vital Signs (Past 12 Hours) Vital Signs Temp Pulse Pulse Pulse Resp BP BP 10/19/18 07:16 88 17 10/19/18 07:15 83 16 10/19/18 06:30 81 108/57 L 10/19/18 06:01 81 93/51 L 10/19/18 05:34 83 16 10/19/18 05:31 84 109/51 L 10/19/18 05:30 84 10/19/18 05:16 83 103/57 L 10/19/18 05:00 84 107/57 L 10/19/18 04:45 85 101/61 10/19/18 04:30 86 104/51 L 10/19/18 04:15 87 99/56 L 10/19/18 04:00 36.3 C L 87 96/57 L 10/19/18 03:47 16 10/19/18 03:45 89 92/54 L 10/19/18 03:30 90 93/52 L 10/19/18 03:15 91 H 16 92/53 L 10/19/18 03:00 93 H 93/53 L 10/19/18 02:45 95 H 88/57 L 10/19/18 02:30 96 H 85/50 L 10/19/18 02:19 98 H 82/47 L 10/19/18 02:15 98 H 81/52 L 10/19/18 02:00 102 H 89/51 L 10/19/18 01:47 106 H 118/67 10/19/18 01:30 106 H 91/58 L 10/19/18 01:12 114 H 133/60 10/19/18 00:12 16 10/19/18 00:07 122 H 139/67 10/19/18 00:05 122 H 146/115 H 10/18/18 23:47 36.4 C L 121 H 16 10/18/18 23:31 127 H 158/91 H 10/18/18 23:30 127 H 10/18/18 23:17 131 H 10/18/18 23:16 127 H 16 156/93 H 10/18/18 23:15 128 H 10/18/18 23:01 128 H 165/91 H 10/18/18 23:00 128 H 10/18/18 22:46 139 H 175/94 H 10/18/18 22:45 129 H 10/18/18 22:30 130 H 16 169/91 H 10/18/18 21:59 118 H 16 10/18/18 21:42 133 H 24 131/99 10/18/18 21:31 10/18/18 21:17 37.2 C 143 H 28 H 148/108 H 10/18/18 21:05 143 H 36 H BP Pulse Ox 10/19/18 07:16 96 10/19/18 07:15 96 10/19/18 06:30 97 10/19/18 06:01 95 10/19/18 05:34 98 10/19/18 05:31 97 10/19/18 05:30 97 10/19/18 05:16 96 10/19/18 05:00 96 10/19/18 04:45 94 10/19/18 04:30 93 10/19/18 04:15 91 10/19/18 04:00 93 10/19/18 03:47 10/19/18 03:45 92 10/19/18 03:30 95 10/19/18 03:15 94 10/19/18 03:00 95 10/19/18 02:45 94 10/19/18 02:30 95 10/19/18 02:19 95 10/19/18 02:15 95 10/19/18 02:00 97 10/19/18 01:47 95 10/19/18 01:30 98 10/19/18 01:12 100 10/19/18 00:12 10/19/18 00:07 97 10/19/18 00:05 97 10/18/18 23:47 139/67 98 10/18/18 23:31 91 10/18/18 23:30 91 10/18/18 23:17 95 10/18/18 23:16 95 10/18/18 23:15 96 10/18/18 23:01 98 10/18/18 23:00 98 10/18/18 22:46 98 10/18/18 22:45 98 10/18/18 22:30 98 10/18/18 21:59 96 10/18/18 21:42 94 10/18/18 21:31 94 10/18/18 21:17 95 10/18/18 21:05 96 Laboratory Results Laboratory Results - last 24 hr 10/18/18 10/18/18 10/18/18 20:15 21:15 21:15 WBC 21.46 H RBC 4.24 Hgb 12.3 Hct 39.1 MCV 92.2 MCH 29.0 MCHC 31.5 L RDW Std Deviation 50.7 H RDW Coeff of Michelle 15.0 H Plt Count 301 MPV 12.4 H Immature Gran % (Auto) 0.7 Neut % (Auto) 64.4 Lymph % (Auto) 23.6 [place] % (Auto) 7.9 Eos % (Auto) 3.2 Baso % (Auto) 0.2 Immature Gran # (Auto) 0.15 H Neut # (Auto) 13.81 H Lymph # (Auto) 5.07 H [place] # (Auto) 1.70 H Eos # (Auto) 0.68 H Baso # (Auto) 0.05 Blood Smear Review Pending RBC Morphology Unremarkable PT INR D-Dimer 460 Sample Site POC pH POC pCO2 POC pO2 POC HCO3 POC Total CO2 POC Base Excess POC ABG O2 Sat Dao Test VBG pH VBG pCO2 VBG pO2 VBG HCO3 VBG O2 Saturation VBG Base Excess Barometric Pressure O2 Delivery Device POC O2 Rate Minute Ventilation POC FiO2 Tidal Volume PEEP Sodium 138 Potassium 4.6 Chloride 100 Carbon Dioxide 34 H Anion Gap 5.0 BUN 15 Creatinine 1.01 Est Cr Clr Drug Dosing 49.6 Est GFR ( Amer) 63.5 Est GFR (Non-Af Amer) 54.8 BUN/Creatinine Ratio 14.4 Glucose 199 H POC Glucose POC Lactic Acid Miko Calcium 9.9 Magnesium 2.9 H Total Bilirubin 0.4 AST 16 ALT 19 Alkaline Phosphatase 105 Troponin I 0.021 NT-Pro-B Natriuret Pep 171 Total Protein 7.3 Albumin 3.5 Globulin 3.8 Albumin/Globulin Ratio 0.9 Urine Color Urine Appearance Urine pH Ur Specific Fleming Urine Protein Urine Glucose (UA) Urine Ketones Urine Blood Urine Nitrite Urine Bilirubin Urine Urobilinogen Ur Leukocyte Esterase Urine WBC (Auto) Urine RBC (Auto) U Hyaline Cast (Auto) U Epithel Cells (Auto) Urine Bacteria (Auto) Ur Renal Epithelial Cell Nasal Screen MRSA (PCR) 10/18/18 10/18/18 10/18/18 21:22 21:23 22:20 WBC RBC Hgb Hct MCV MCH MCHC RDW Std Deviation RDW Coeff of Michelle Plt Count MPV Immature Gran % (Auto) Neut % (Auto) Lymph % (Auto) [place] % (Auto) Eos % (Auto) Baso % (Auto) Immature Gran # (Auto) Neut # (Auto) Lymph # (Auto) [place] # (Auto) Eos # (Auto) Baso # (Auto) Blood Smear Review RBC Morphology PT INR D-Dimer Sample Site POC pH POC pCO2 POC pO2 POC HCO3 POC Total CO2 POC Base Excess POC ABG O2 Sat Dao Test VBG pH 7.18 L VBG pCO2 92 H VBG pO2 89 VBG HCO3 34 VBG O2 Saturation 94.9 VBG Base Excess 2.5 Barometric Pressure 734.4 O2 Delivery Device POC O2 Rate Minute Ventilation POC FiO2 Tidal Volume PEEP Sodium Potassium Chloride Carbon Dioxide Anion Gap BUN Creatinine Est Cr Clr Drug Dosing Est GFR ( Amer) Est GFR (Non-Af Amer) BUN/Creatinine Ratio Glucose POC Glucose POC Lactic Acid Miko 1.15 Calcium Magnesium Total Bilirubin AST ALT Alkaline Phosphatase Troponin I NT-Pro-B Natriuret Pep Total Protein Albumin Globulin Albumin/Globulin Ratio Urine Color Yellow Urine Appearance Cloudy A Urine pH 6.0 Ur Specific Fleming 1.019 Urine Protein 2+ H Urine Glucose (UA) Negative Urine Ketones Negative Urine Blood 1+ H Urine Nitrite Negative Urine Bilirubin Negative Urine Urobilinogen Negative Ur Leukocyte Esterase Negative Urine WBC (Auto) 1-5 Urine RBC (Auto) 5-10 H U Hyaline Cast (Auto) 1-5 U Epithel Cells (Auto) >30 H Urine Bacteria (Auto) Negative Ur Renal Epithelial Cell 0-5 Nasal Screen MRSA (PCR) 10/19/18 10/19/18 10/19/18 00:01 00:34 00:36 WBC RBC Hgb Hct MCV MCH MCHC RDW Std Deviation RDW Coeff of Michelle Plt Count MPV Immature Gran % (Auto) Neut % (Auto) Lymph % (Auto) [place] % (Auto) Eos % (Auto) Baso % (Auto) Immature Gran # (Auto) Neut # (Auto) Lymph # (Auto) [place] # (Auto) Eos # (Auto) Baso # (Auto) Blood Smear Review RBC Morphology PT INR D-Dimer Sample Site L Radial POC pH Pending POC pCO2 Pending POC pO2 Pending POC HCO3 34 H POC Total CO2 36 H POC Base Excess 8.0 H POC ABG O2 Sat 93.0 Dao Test NA VBG pH VBG pCO2 VBG pO2 VBG HCO3 VBG O2 Saturation VBG Base Excess Barometric Pressure O2 Delivery Device Ventilator POC O2 Rate 16 Minute Ventilation 7.4 POC FiO2 40 Tidal Volume 450 PEEP 5 Sodium Potassium Chloride Carbon Dioxide Anion Gap BUN Creatinine Est Cr Clr Drug Dosing Est GFR ( Amer) Est GFR (Non-Af Amer) BUN/Creatinine Ratio Glucose POC Glucose 270 H POC Lactic Acid Miko Calcium Magnesium Total Bilirubin AST ALT Alkaline Phosphatase Troponin I NT-Pro-B Natriuret Pep Total Protein Albumin Globulin Albumin/Globulin Ratio Urine Color Urine Appearance Urine pH Ur Specific Fleming Urine Protein Urine Glucose (UA) Urine Ketones Urine Blood Urine Nitrite Urine Bilirubin Urine Urobilinogen Ur Leukocyte Esterase Urine WBC (Auto) Urine RBC (Auto) U Hyaline Cast (Auto) U Epithel Cells (Auto) Urine Bacteria (Auto) Ur Renal Epithelial Cell Nasal Screen MRSA (PCR) Negative 10/19/18 10/19/18 10/19/18 04:03 06:14 07:08 WBC 19.17 H RBC 4.08 L Hgb 11.4 L Hct 37.4 MCV 91.7 MCH 27.9 MCHC 30.5 L RDW Std Deviation 50.4 H RDW Coeff of Michelle 14.8 H Plt Count 167 MPV 11.6 H Immature Gran % (Auto) 0.3 Neut % (Auto) 96.7 Lymph % (Auto) 1.2 [place] % (Auto) 1.7 Eos % (Auto) 0.0 Baso % (Auto) 0.1 Immature Gran # (Auto) 0.05 H Neut # (Auto) 18.56 H Lymph # (Auto) 0.23 L [place] # (Auto) 0.32 Eos # (Auto) 0.00 Baso # (Auto) 0.01 Blood Smear Review RBC Morphology PT 10.1 INR 1.0 D-Dimer Sample Site POC pH POC pCO2 POC pO2 POC HCO3 POC Total CO2 POC Base Excess POC ABG O2 Sat Dao Test VBG pH VBG pCO2 VBG pO2 VBG HCO3 VBG O2 Saturation VBG Base Excess Barometric Pressure O2 Delivery Device POC O2 Rate Minute Ventilation POC FiO2 Tidal Volume PEEP Sodium Potassium Chloride Carbon Dioxide Anion Gap BUN Creatinine Est Cr Clr Drug Dosing Est GFR ( Amer) Est GFR (Non-Af Amer) BUN/Creatinine Ratio Glucose POC Glucose 229 H POC Lactic Acid Miko Calcium Magnesium Total Bilirubin AST ALT Alkaline Phosphatase Troponin I NT-Pro-B Natriuret Pep Total Protein Albumin Globulin Albumin/Globulin Ratio Urine Color Urine Appearance Urine pH Ur Specific [place] Urine Protein Urine Glucose (UA) Urine Ketones Urine Blood Urine Nitrite Urine Bilirubin Urine Urobilinogen Ur Leukocyte Esterase Urine WBC (Auto) Urine RBC (Auto) U Hyaline Cast (Auto) U Epithel Cells (Auto) Urine Bacteria (Auto) Ur Renal Epithelial Cell Nasal Screen MRSA (PCR) 10/19/18 07:08 WBC RBC Hgb Hct MCV MCH MCHC RDW Std Deviation RDW Coeff of Michelle Plt Count MPV Immature Gran % (Auto) Neut % (Auto) Lymph % (Auto) [place] % (Auto) Eos % (Auto) Baso % (Auto) Immature Gran # (Auto) Neut # (Auto) Lymph # (Auto) [place] # (Auto) Eos # (Auto) Baso # (Auto) Blood Smear Review RBC Morphology PT INR D-Dimer Sample Site POC pH POC pCO2 POC pO2 POC HCO3 POC Total CO2 POC Base Excess POC ABG O2 Sat Dao Test VBG pH VBG pCO2 VBG pO2 VBG HCO3 VBG O2 Saturation VBG Base Excess Barometric Pressure O2 Delivery Device POC O2 Rate Minute Ventilation POC FiO2 Tidal Volume PEEP Sodium 138 Potassium 4.0 Chloride 97 L Carbon Dioxide 29 Anion Gap 12.0 H BUN 17 Creatinine 1.25 H Est Cr Clr Drug Dosing 39.8 Est GFR ( Amer) 49.1 Est GFR (Non-Af Amer) 42.3 BUN/Creatinine Ratio 13.8 Glucose 240 H POC Glucose POC Lactic Acid Miko Calcium 9.3 Magnesium 2.2 Total Bilirubin 0.6 AST 25 ALT 31 Alkaline Phosphatase 97 Troponin I NT-Pro-B Natriuret Pep Total Protein 6.6 Albumin 3.2 L Globulin 3.4 Albumin/Globulin Ratio 0.9 Urine Color Urine Appearance Urine pH Ur Specific Fleming Urine Protein Urine Glucose (UA) Urine Ketones Urine Blood Urine Nitrite Urine Bilirubin Urine Urobilinogen Ur Leukocyte Esterase Urine WBC (Auto) Urine RBC (Auto) U Hyaline Cast (Auto) U Epithel Cells (Auto) Urine Bacteria (Auto) Ur Renal Epithelial Cell Nasal Screen MRSA (PCR) Medications Administered Current Inpatient Medications Albuterol (Duoneb) 3 ml NEB QIDR MARTA Stop: 11/18/18 07:59 Last Admin: 10/19/18 07:14 Dose: 3 ml Documented by: Albuterol (Duoneb) 3 ml NEB Q4R PRN PRN Reason: Shortness Of Breath Stop: 11/18/18 00:15 Amlodipine Besylate (Norvasc) 5 mg PO DAILY MARTA Stop: 11/18/18 08:59 Last Admin: 10/19/18 10:15 Dose: 5 mg Documented by: Atorvastatin Calcium (Lipitor) 40 mg PO HS [facility] Stop: 11/18/18 20:59 Carvedilol (Coreg) 12.5 mg PO BID [facility] Stop: 11/18/18 08:59 Last Admin: 10/19/18 10:15 Dose: 12.5 mg Documented by: Dextrose (Dextrose 50%) 25 - 50 ml IV UD PRN; Protocol PRN Reason: Hypoglycemia Protocol Stop: 11/17/18 23:29 Enoxaparin Sodium (Lovenox) 40 mg SQ Q24H [facility] Stop: 11/18/18 08:59 Last Admin: 10/19/18 08:17 Dose: 40 mg Documented by: Glucagon (Glucagen) 1 mg IM UD PRN; Protocol PRN Reason: Hypoglycemia Protocol Stop: 11/17/18 23:29 Glucose (Glucose 40%) 15 - 30 gm PO UD PRN; Protocol PRN Reason: Hypoglycemia Protocol Stop: 11/17/18 23:29 Glucose (Dex4 Glucose) 4 - 8 tabs PO UD PRN; Protocol PRN Reason: Hypoglycemia Protocol Stop: 11/17/18 23:29 Propofol (Diprivan) 1,000 mg in 100 mls @ 22.14 mls/hr IV .[id number] [facility]; Protocol Stop: 10/21/18 21:59 Last Titration: 10/19/18 09:35 Dose: 0 mcg/kg/min, 0 mls/hr Documented by: Methylprednisolone 60 mg/ (Syringe) 0.96 mls @ 1.5 mls/min IV Q6H [facility] Stop: 11/18/18 00:59 Last Admin: 10/19/18 06:18 Dose: 1.5 mls/min Documented by: Levofloxacin/Dextrose (Levaquin/D5w) 500 mg in 100 mls @ 100 mls/hr IV Q24H [facility] Stop: 10/26/18 00:59 Last Infusion: 10/19/18 02:45 Dose: Infused Documented by: Insulin Aspart (Novolog Flexpen) 0 units SC Q6 MARTA Stop: 11/18/18 00:00 Last Admin: 10/19/18 06:18 Dose: 2 units Documented by: Ioversol (Optiray 320 100ml) 94 ml IV ONCE PRN PRN Reason: Interaction Checking Stop: 10/23/18 01:10 Last Admin: 10/19/18 01:13 Dose: 94 ml Documented by: Miscellaneous (Icu Protocol For Hyperglycemia) 1 ea N/A PRN PRN; Protocol PRN Reason: Hyperglycemia Protocol Stop: 10/20/18 22:49 Miscellaneous (Carbohydrates For Hypoglycemia) 15 - 30 gm PO UD PRN PRN Reason: Hypoglycemia Treatment Stop: 11/17/18 23:29 Resident Activity Tracking Resident Involvement: Resident Care Provided Care Provided: Adult Hospital Medicine
[2018-10-19] MEDS: AMLODIPINE BESYLATE 5 MG TAB PO SCH (10:15)
[2018-10-19] MEDS: CARVEDILOL 12.5 MG TAB PO SCH ×2 (10:15→21:48)
[2018-10-19] MEDS: TRIAMTERENE/HCTZ 37.5/25MG TAB PO SCH (12:14)
[2018-10-19] MEDS ORDERED: FUROSEMIDE 20 MG in SYRINGE 0 ML IV ONE (15:31)
--- NOTE | 2018-10-19 15:38 | XRay Report ---
XR chest 1V portable CLINICAL HISTORY: COPD flare, recent extubation, dyspnea COMPARISON STUDY: 10/18/2018 FINDINGS: Interval extubation. Developing bibasilar parenchymal infiltrates versus atypical components of congestive failure. IMPRESSION: 1. Interval extubation. 2. Interval development of bibasilar parenchymal infiltrates versus atypical components of congestive failure The above report was generated using voice recognition software. It may contain grammatical, syntax or spelling errors. Electronically signed by: Piyush Lewis M.D. 10/19/2018 3:36 PM
[2018-10-19] MEDS ORDERED: Nursing to Pharmacy Communication ONE (16:02)
[2018-10-19 16:10] LABS: Base Excess VBG 3.4 mEq/L; Oxygen Saturation VBG 92.1 %; pH VBG 7.27 (7.36-7.41)
[2018-10-19] MEDS: TIOTROPIUM BROMIDE 5 PUFF/90 MCG INH INH SCH (17:14)
--- NOTE | 2018-10-19 20:44 | Hospitalist Progress Note ---
Date of Service October 19, 2018 Assessment & Plan (1) Acute on chronic respiratory failure with hypoxia and hypercapnia: acute component - multifactorial - COPD exacerbation, b/l pneumonia, and acute/chronic CHF. intubated last pm -- then extubated this am. during my assessment the patient was having distress with retractions on her home o2 amount of 4 L NC. she c/o dyspnea. BIPAP ordered; couldn't tolerate beyond 30 minutes. Switched to HF NC. VBG with mild respiratory acidosis. Repeat cxr - my reading - worsening RLL infiltrate; pulmonary edema. gave lasix 20mg IV x 1 -- diuresed 1L with such promptly. continue HF NC and supportive care. patient to remain in ICU. Present on Admission?: Yes (2) Acute on chronic combined systolic and diastolic CHF (congestive heart failure): ECHO with EF 45-50% and grade 1 diastolic dysfunction. There are wall motion abnormalities. Although IVC is normal on echo she appears to have JVD and there is pulm edema on cxr/exam. Lasix 20mg IV x 1 given with excellent diruesis. Consider repeat lasix late tonight. Cont BB. Will need JAVAD at some point. After d/c refer to cardiology for wall motion abnormalities. Present on Admission?: Yes (3) COPD with exacerbation: Continue high-dose IV steroids. Resume home inhalers. HF NC O2; maintain sats low 90s. Continue nebs and supportive care. Continue antibiotics. Present on Admission?: Yes (4) Bilateral pneumonia: Continue levaquin. Continue supportive care. Broaden abx if any clinical worsening. Present on Admission?: Yes (5) Hypertension: Continue home meds Present on Admission?: Yes (6) Hyperlipidemia: Continue statin therapy. Present on Admission?: Yes (7) Hyperglycemia: Could be 2nd to steroids but check a1c; rule out T2DM. Pharmacy to manage hyperglycemia per protocol. Add basal insulin if necessary. Present on Admission?: Yes (8) Chronic kidney disease, stage 3a: Appears to have CKD stage 3. BMP in am for stability. Present on Admission?: Yes (9) DVT prophylaxis: lovenox 40mg daily Subjective patient c/o dyspnea during my visit. she stated "I think I need more oxygen." she c/o several episodes of abdominal pain radiating to her back several days prior to admission. she has had poor appetite leading up to this stay. is on 4 L NC O2 at home. Review of Systems Constitutional: + fatigue, + weakness and + anorexia; no fever and no chills Respiratory: + cough, + chest congestion, + dyspnea, + sputum production and + wheezing; no hemoptysis Cardiovascular: + orthopnea, + paroxysmal nocturnal dyspnea and + edema (recently was worse); no chest pain Gastrointestinal: + abdominal pain; no nausea and no vomiting Physical Exam Constitutional: + acute distress (retractions, tachypnea, dyspneic); no altered mental status ENMT: external ear and nose normal, oropharynx normal Respiratory: + respiratory distress and + retractions Auscultation: + rales (bases) and + wheezes Cardiovascular: Rate/Rhythm: regular rate and regular rhythm Heart Sounds: normal S1 and normal S2; no murmur Vessels: + JVD, posterior tibial pulses present and dorsalis pedis pulses present Extremities: + edema (1+ b/l) Gastrointestinal (Abdomen): normal bowel sounds, soft, nontender, no hepatosplenomegaly Skin: clubbing of fingernails Psychiatric: Orientation: alert Results & Data Vital Signs (Past 12 Hours) Vital Signs Temp Pulse Pulse Resp BP BP BP 10/19/18 18:53 94 H 18 10/19/18 18:00 96 H 26 H 143/65 H 10/19/18 17:00 95 H 26 H 144/82 H 10/19/18 16:00 36.9 C 98 H 26 H 137/96 10/19/18 15:33 88 26 H 10/19/18 15:00 97 H 24 112/86 10/19/18 14:00 99 H 24 149/94 H 10/19/18 13:00 99 H 24 143/74 H 10/19/18 12:00 36.5 C 111 H 26 H 158/84 H 10/19/18 11:17 18 10/19/18 11:16 18 10/19/18 11:00 110 H 18 159/73 H 10/19/18 10:00 101 H 23 166/117 H 10/19/18 09:00 76 106/57 L Pulse Ox 10/19/18 18:53 98 10/19/18 18:00 98 10/19/18 17:00 95 10/19/18 16:00 93 10/19/18 15:33 93 10/19/18 15:00 94 10/19/18 14:00 95 10/19/18 13:00 95 10/19/18 12:00 96 10/19/18 11:17 10/19/18 11:16 96 10/19/18 11:00 95 10/19/18 10:00 100 10/19/18 09:00 99 Laboratory Results Laboratory Results - last 24 hr 10/18/18 10/18/18 10/18/18 20:15 21:15 21:15 WBC 21.46 H RBC 4.24 Hgb 12.3 Hct 39.1 MCV 92.2 MCH 29.0 MCHC 31.5 L RDW Std Deviation 50.7 H RDW Coeff of Michelle 15.0 H Plt Count 301 MPV 12.4 H Immature Gran % (Auto) 0.7 Neut % (Auto) 64.4 Lymph % (Auto) 23.6 [place] % (Auto) 7.9 Eos % (Auto) 3.2 Baso % (Auto) 0.2 Immature Gran # (Auto) 0.15 H Neut # (Auto) 13.81 H Lymph # (Auto) 5.07 H [place] # (Auto) 1.70 H Eos # (Auto) 0.68 H Baso # (Auto) 0.05 Blood Smear Review Pending RBC Morphology Unremarkable PT INR D-Dimer 460 Sample Site POC pH POC pCO2 POC pO2 POC HCO3 POC Total CO2 POC Base Excess POC ABG O2 Sat Dao Test VBG pH VBG pCO2 VBG pO2 VBG HCO3 VBG O2 Saturation VBG Base Excess Barometric Pressure O2 Delivery Device POC O2 Rate Minute Ventilation POC FiO2 Tidal Volume PEEP Sodium 138 Potassium 4.6 Chloride 100 Carbon Dioxide 34 H Anion Gap 5.0 BUN 15 Creatinine 1.01 Est Cr Clr Drug Dosing 49.6 Est GFR ( Amer) 63.5 Est GFR (Non-Af Amer) 54.8 BUN/Creatinine Ratio 14.4 Glucose 199 H POC Glucose POC Lactic Acid Miko Calcium 9.9 Magnesium 2.9 H Total Bilirubin 0.4 AST 16 ALT 19 Alkaline Phosphatase 105 Troponin I 0.021 NT-Pro-B Natriuret Pep 171 Total Protein 7.3 Albumin 3.5 Globulin 3.8 Albumin/Globulin Ratio 0.9 Urine Color Urine Appearance Urine pH Ur Specific [place] Urine Protein Urine Glucose (UA) Urine Ketones Urine Blood Urine Nitrite Urine Bilirubin Urine Urobilinogen Ur Leukocyte Esterase Urine WBC (Auto) Urine RBC (Auto) U Hyaline Cast (Auto) U Epithel Cells (Auto) Urine Bacteria (Auto) Ur Renal Epithelial Cell Nasal Screen MRSA (PCR) 10/18/18 10/18/18 10/18/18 21:22 21:23 22:20 WBC RBC Hgb Hct MCV MCH MCHC RDW Std Deviation RDW Coeff of Michelle Plt Count MPV Immature Gran % (Auto) Neut % (Auto) Lymph % (Auto) [place] % (Auto) Eos % (Auto) Baso % (Auto) Immature Gran # (Auto) Neut # (Auto) Lymph # (Auto) [place] # (Auto) Eos # (Auto) Baso # (Auto) Blood Smear Review RBC Morphology PT INR D-Dimer Sample Site POC pH POC pCO2 POC pO2 POC HCO3 POC Total CO2 POC Base Excess POC ABG O2 Sat Dao Test VBG pH 7.18 L VBG pCO2 92 H VBG pO2 89 VBG HCO3 34 VBG O2 Saturation 94.9 VBG Base Excess 2.5 Barometric Pressure 734.4 O2 Delivery Device POC O2 Rate Minute Ventilation POC FiO2 Tidal Volume PEEP Sodium Potassium Chloride Carbon Dioxide Anion Gap BUN Creatinine Est Cr Clr Drug Dosing Est GFR ( Amer) Est GFR (Non-Af Amer) BUN/Creatinine Ratio Glucose POC Glucose POC Lactic Acid Miko 1.15 Calcium Magnesium Total Bilirubin AST ALT Alkaline Phosphatase Troponin I NT-Pro-B Natriuret Pep Total Protein Albumin Globulin Albumin/Globulin Ratio Urine Color Yellow Urine Appearance Cloudy A Urine pH 6.0 Ur Specific [place] 1.019 Urine Protein 2+ H Urine Glucose (UA) Negative Urine Ketones Negative Urine Blood 1+ H Urine Nitrite Negative Urine Bilirubin Negative Urine Urobilinogen Negative Ur Leukocyte Esterase Negative Urine WBC (Auto) 1-5 Urine RBC (Auto) 5-10 H U Hyaline Cast (Auto) 1-5 U Epithel Cells (Auto) >30 H Urine Bacteria (Auto) Negative Ur Renal Epithelial Cell 0-5 Nasal Screen MRSA (PCR) 10/19/18 10/19/18 10/19/18 00:01 00:34 00:36 WBC RBC Hgb Hct MCV MCH MCHC RDW Std Deviation RDW Coeff of Michelle Plt Count MPV Immature Gran % (Auto) Neut % (Auto) Lymph % (Auto) [place] % (Auto) Eos % (Auto) Baso % (Auto) Immature Gran # (Auto) Neut # (Auto) Lymph # (Auto) [place] # (Auto) Eos # (Auto) Baso # (Auto) Blood Smear Review RBC Morphology PT INR D-Dimer Sample Site L Radial POC pH Pending POC pCO2 Pending POC pO2 Pending POC HCO3 34 H POC Total CO2 36 H POC Base Excess 8.0 H POC ABG O2 Sat 93.0 Dao Test NA VBG pH VBG pCO2 VBG pO2 VBG HCO3 VBG O2 Saturation VBG Base Excess Barometric Pressure O2 Delivery Device Ventilator POC O2 Rate 16 Minute Ventilation 7.4 POC FiO2 40 Tidal Volume 450 PEEP 5 Sodium Potassium Chloride Carbon Dioxide Anion Gap BUN Creatinine Est Cr Clr Drug Dosing Est GFR ( Amer) Est GFR (Non-Af Amer) BUN/Creatinine Ratio Glucose POC Glucose 270 H POC Lactic Acid Miko Calcium Magnesium Total Bilirubin AST ALT Alkaline Phosphatase Troponin I NT-Pro-B Natriuret Pep Total Protein Albumin Globulin Albumin/Globulin Ratio Urine Color Urine Appearance Urine pH Ur Specific [place] Urine Protein Urine Glucose (UA) Urine Ketones Urine Blood Urine Nitrite Urine Bilirubin Urine Urobilinogen Ur Leukocyte Esterase Urine WBC (Auto) Urine RBC (Auto) U Hyaline Cast (Auto) U Epithel Cells (Auto) Urine Bacteria (Auto) Ur Renal Epithelial Cell Nasal Screen MRSA (PCR) Negative 10/19/18 10/19/18 10/19/18 04:03 06:14 07:08 WBC 19.17 H RBC 4.08 L Hgb 11.4 L Hct 37.4 MCV 91.7 MCH 27.9 MCHC 30.5 L RDW Std Deviation 50.4 H RDW Coeff of Michelle 14.8 H Plt Count 167 MPV 11.6 H Immature Gran % (Auto) 0.3 Neut % (Auto) 96.7 Lymph % (Auto) 1.2 [place] % (Auto) 1.7 Eos % (Auto) 0.0 Baso % (Auto) 0.1 Immature Gran # (Auto) 0.05 H Neut # (Auto) 18.56 H Lymph # (Auto) 0.23 L [place] # (Auto) 0.32 Eos # (Auto) 0.00 Baso # (Auto) 0.01 Blood Smear Review RBC Morphology PT 10.1 INR 1.0 D-Dimer Sample Site POC pH POC pCO2 POC pO2 POC HCO3 POC Total CO2 POC Base Excess POC ABG O2 Sat Dao Test VBG pH VBG pCO2 VBG pO2 VBG HCO3 VBG O2 Saturation VBG Base Excess Barometric Pressure O2 Delivery Device POC O2 Rate Minute Ventilation POC FiO2 Tidal Volume PEEP Sodium Potassium Chloride Carbon Dioxide Anion Gap BUN Creatinine Est Cr Clr Drug Dosing Est GFR ( Amer) Est GFR (Non-Af Amer) BUN/Creatinine Ratio Glucose POC Glucose 229 H POC Lactic Acid Miko Calcium Magnesium Total Bilirubin AST ALT Alkaline Phosphatase Troponin I NT-Pro-B Natriuret Pep Total Protein Albumin Globulin Albumin/Globulin Ratio Urine Color Urine Appearance Urine pH Ur Specific [place] Urine Protein Urine Glucose (UA) Urine Ketones Urine Blood Urine Nitrite Urine Bilirubin Urine Urobilinogen Ur Leukocyte Esterase Urine WBC (Auto) Urine RBC (Auto) U Hyaline Cast (Auto) U Epithel Cells (Auto) Urine Bacteria (Auto) Ur Renal Epithelial Cell Nasal Screen MRSA (PCR) 10/19/18 10/19/18 10/19/18 07:08 11:32 15:54 WBC RBC Hgb Hct MCV MCH MCHC RDW Std Deviation RDW Coeff of Michelle Plt Count MPV Immature Gran % (Auto) Neut % (Auto) Lymph % (Auto) [place] % (Auto) Eos % (Auto) Baso % (Auto) Immature Gran # (Auto) Neut # (Auto) Lymph # (Auto) [place] # (Auto) Eos # (Auto) Baso # (Auto) Blood Smear Review RBC Morphology PT INR D-Dimer Sample Site POC pH POC pCO2 POC pO2 POC HCO3 POC Total CO2 POC Base Excess POC ABG O2 Sat Dao Test VBG pH 7.27 L VBG pCO2 73 H VBG pO2 66 VBG HCO3 33 VBG O2 Saturation 92.1 VBG Base Excess 3.4 Barometric Pressure 732.1 O2 Delivery Device POC O2 Rate Minute Ventilation POC FiO2 Tidal Volume PEEP Sodium 138 Potassium 4.0 Chloride 97 L Carbon Dioxide 29 Anion Gap 12.0 H BUN 17 Creatinine 1.25 H Est Cr Clr Drug Dosing 39.8 Est GFR ( Amer) 49.1 Est GFR (Non-Af Amer) 42.3 BUN/Creatinine Ratio 13.8 Glucose 240 H POC Glucose 184 H POC Lactic Acid Miko Calcium 9.3 Magnesium 2.2 Total Bilirubin 0.6 AST 25 ALT 31 Alkaline Phosphatase 97 Troponin I NT-Pro-B Natriuret Pep Total Protein 6.6 Albumin 3.2 L Globulin 3.4 Albumin/Globulin Ratio 0.9 Urine Color Urine Appearance Urine pH Ur Specific [place] Urine Protein Urine Glucose (UA) Urine Ketones Urine Blood Urine Nitrite Urine Bilirubin Urine Urobilinogen Ur Leukocyte Esterase Urine WBC (Auto) Urine RBC (Auto) U Hyaline Cast (Auto) U Epithel Cells (Auto) Urine Bacteria (Auto) Ur Renal Epithelial Cell Nasal Screen MRSA (PCR) 10/19/18 16:42 WBC RBC Hgb Hct MCV MCH MCHC RDW Std Deviation RDW Coeff of Michelle Plt Count MPV Immature Gran % (Auto) Neut % (Auto) Lymph % (Auto) [place] % (Auto) Eos % (Auto) Baso % (Auto) Immature Gran # (Auto) Neut # (Auto) Lymph # (Auto) [place] # (Auto) Eos # (Auto) Baso # (Auto) Blood Smear Review RBC Morphology PT INR D-Dimer Sample Site POC pH POC pCO2 POC pO2 POC HCO3 POC Total CO2 POC Base Excess POC ABG O2 Sat Dao Test VBG pH VBG pCO2 VBG pO2 VBG HCO3 VBG O2 Saturation VBG Base Excess Barometric Pressure O2 Delivery Device POC O2 Rate Minute Ventilation POC FiO2 Tidal Volume PEEP Sodium Potassium Chloride Carbon Dioxide Anion Gap BUN Creatinine Est Cr Clr Drug Dosing Est GFR ( Amer) Est GFR (Non-Af Amer) BUN/Creatinine Ratio Glucose POC Glucose 157 H POC Lactic Acid Miko Calcium Magnesium Total Bilirubin AST ALT Alkaline Phosphatase Troponin I NT-Pro-B Natriuret Pep Total Protein Albumin Globulin Albumin/Globulin Ratio Urine Color Urine Appearance Urine pH Ur Specific [place] Urine Protein Urine Glucose (UA) Urine Ketones Urine Blood Urine Nitrite Urine Bilirubin Urine Urobilinogen Ur Leukocyte Esterase Urine WBC (Auto) Urine RBC (Auto) U Hyaline Cast (Auto) U Epithel Cells (Auto) Urine Bacteria (Auto) Ur Renal Epithelial Cell Nasal Screen MRSA (PCR) (1) Bilateral pneumonia Pneumonia type: due to unspecified organism Lung location: lower lobe of lung Qualified Code(s): J18.1 - Lobar pneumonia, unspecified organism (2) Hypertension Hypertension type: essential hypertension Qualified Code(s): I10 - Essential (primary) hypertension (3) Hyperlipidemia Hyperlipidemia type: mixed hyperlipidemia Qualified Code(s): E78.2 - Mixed hyperlipidemia
[2018-10-19] MEDS: BUDESONIDE/FORMOTEROL FUMARATE 160/4.5 60 PUFFS/INHALER INH SCH (21:44)
[2018-10-19] MEDS: ATORVASTATIN 40 MG TAB PO SCH (21:47)
[2018-10-19] MEDS ORDERED: PANTOprazole 40 MG TAB PO STA (23:02)
[2018-10-20] MEDS: LEVOFLOXACIN/D5W 500 MG/100 ML BAG IV SCH (00:21)
[2018-10-20] MEDS: methylPREDNISolone 60 MG in SYRINGE 0 ML IV SCH ×2 (00:21→06:14)
[2018-10-20] MEDS: ALBUT/IPRATROP 3MG/0.5MG NEB 3 ML VIAL NEB SCH ×6 (01:19→19:48)
[2018-10-20 04:19] LABS: Hematocrit (blood only) 36.3 % (37-47); Hemoglobin 11.9 g/dL (12.0-16.0); Immature Granulocytes # (auto) 0.06 K/uL (0.00-0.02); Immature Granulocytes % (auto) 0.3 %; Lymphocytes # (auto) 0.35 K/uL (1.2-3.4); Lymphocytes % (auto) 1.9 %; Mean Corpuscular Hgb Conc 32.8 g/dL (32-36); Mean Corpuscular Volume 87.9 fL (80-100); Mean Platelet Volume 11.7 fL (7.4-10.4); Monocytes # (auto) 0.35 K/uL (0.11-0.59); Monocytes % (auto) 1.9 %; Neutrophils # (auto) 17.84 K/uL (1.4-6.5); Neutrophils % (auto) 95.9 %; Platelet Count 193 K/uL (130-400); RDW Coefficient of Variation 14.4 % (11.5-14.5); RDW Standard Deviation 46.3 fL (36.4-46.3); Red Blood Count 4.13 M/uL (4.2-5.4)
[2018-10-20 04:38] LABS: HCO3 ABG 32 mmol/L (19-24); Oxygen Saturation ABG 96.8 % (90-95); PCO2 ABG 53 mmHg (35-46); PO2 ABG 91 mm/Hg (80-95); pH ABG 7.39 (7.35-7.45)
[2018-10-20 04:42] LABS: Allen Test POS (Pos)
[2018-10-20 04:58] LABS: Albumin Globulin Ratio 0.8 (0.9-2); BUN Creatinine Ratio 20.4 (10-20); Bilirubin Direct 0.1 mg/dl (0-0.2); Bilirubin,Total 0.6 mg/dl (0.2-1); Calcium 8.6 mg/dl (8.5-10.1); Creatinine Clr Calc Pharmacy 59.2 ml/min; Est GFR (African American) 79.4; Est GFR (Non-African American) 68.5; Globulin 3.6 gm/dl (2.5-4.0); Magnesium 2.2 mg/dl (1.8-2.4); Potassium 3.9 mmol/L (3.5-5.1); Total Protein 6.6 gm/dl (6.4-8.2)
[2018-10-20] MEDS: INSULIN ASPART 100 UNITS/ML 3 ML PEN SC SCH ×4 (07:48→21:03)
[2018-10-20] MEDS: ENOXAPARIN INJ 40 MG/0.4 ML SYR SQ SCH (08:12)
[2018-10-20] MEDS: TRIAMTERENE/HCTZ 37.5/25MG TAB PO SCH (08:12)
[2018-10-20] MEDS: BUDESONIDE/FORMOTEROL FUMARATE 160/4.5 60 PUFFS/INHALER INH SCH ×2 (08:13→21:02)
[2018-10-20] MEDS: CARVEDILOL 12.5 MG TAB PO SCH ×2 (08:13→21:00)
[2018-10-20] MEDS: AMLODIPINE BESYLATE 5 MG TAB PO SCH (08:13)
[2018-10-20] MEDS: TIOTROPIUM BROMIDE 5 PUFF/90 MCG INH INH SCH (08:13)
--- NOTE | 2018-10-20 11:31 | Critical Care Progress Note ---
Date of Service October 20, 2018 Supervising Physician Co-Signing Physician Notes NEURO Anxiety -Benzodiazepines relatively contraindicated, may benefit from occasional morphine CV HTN Cont Amlodipine 5 mg daily HLD Cont Atorvastatin 40 mg daily CHF ECHO 2017: Grade I diastolic dysfunction, EF 55-60% Repeat ECHO reviewed, ejection fraction decreased 45-50, mild to moderate apical wall hypokinesis Cont carvedilol 12.5 mg BID RESP Acute on chronic Hypercapnic Resp Failure Like 2/2 COPD Exacerbation Sating well on 3L NC Cont on Levofloxacin Cont MARTA nebs and IV steroids. Switch to PO tomorrow and taper H/O PE --> CTA: no evidence of PE ABD/GI Tolerating diet -LFTs within normal limits RENAL/ Hyponatremia ENDO DM2- noninsulin dependent ICU Hyperglycemia protocol Continue Solu-Medrol ID Continuing Levaquin for COPD exacerbation HEME Stable H/H LINES/IV ACCESS PIV x2. Andrade. DVT Prophylaxis: Lovenox Full Code Dispo: Stable for downgrade out of the ICU Subjective Frequent complaints of inability to breathe however patient's oxygen saturation has remained within normal limits and actually decreasing oxygen requirements. It is noted that when the patient is aware that her oxygen requirements are decreasing she does complain of subjective dyspnea at that time and appears rather anxious. Review of Systems Review of Systems: Dyspnea Physical Exam Physical Exam: General: Alert. nontoxic. Skin: Warm, dry, Head: Atraumatic Ears, nose, mouth and throat: airway patent Cardiovascular: Normal peripheral perfusion Respiratory: no respiratory distress, increased expiratory phase Gastrointestinal: Non distended Musculoskeletal: No deformity Results & Data Vital Signs (Past 12 Hours) Vital Signs Temp Pulse Pulse Resp BP BP Pulse Ox 10/20/18 10:00 84 26 H 122/66 97 10/20/18 09:05 24 132/65 91 10/20/18 08:00 37.3 C 92 H 27 H 148/62 H 97 10/20/18 07:29 20 96 10/20/18 07:28 92 H 95 10/20/18 07:00 37.3 C 92 H 24 118/81 97 10/20/18 01:20 95 H 26 H 10/20/18 00:00 Pulse Ox 10/20/18 10:00 10/20/18 09:05 10/20/18 08:00 10/20/18 07:29 10/20/18 07:28 10/20/18 07:00 10/20/18 01:20 10/20/18 00:00 98 Laboratory Results 10/20/18 10/20/18 10/20/18 Range/Units 07:24 03:58 03:58 WBC (4.8-10.8) K/uL RBC (4.2-5.4) M/uL Hgb (12.0-16.0) g/dL Hct (37-47) % MCV (80-100) fL MCH (25-34) pg MCHC (32-36) g/dL RDW Std Deviation (36.4-46.3) fL RDW Coeff of Michelle (11.5-14.5) % Plt Count (130-400) K/uL MPV (7.4-10.4) fL Immature Gran % (Auto) % Neut % (Auto) % Lymph % (Auto) % [place] % (Auto) % Eos % (Auto) % Baso % (Auto) % Immature Gran # (Auto) (0.00-0.02) K/uL Neut # (Auto) (1.4-6.5) K/uL Lymph # (Auto) (1.2-3.4) K/uL Davis # (Auto) (0.11-0.59) K/uL Eos # (Auto) (0-0.5) K/uL Baso # (Auto) (0-0.2) K/uL ABG pH 7.39 (7.35-7.45) ABG pCO2 53 H (35-46) mmHg ABG pO2 91 (80-95) mm/Hg ABG HCO3 32 H (19-24) mmol/L ABG O2 Saturation 96.8 H (90-95) % ABG Base Excess 5.5 H (-9-1.8) mEq/L Dao Test POS (Pos) VBG pH (7.36-7.41) VBG pCO2 (38-50) mmHg VBG pO2 mmHg VBG HCO3 mmol/L VBG O2 Saturation % VBG Base Excess mEq/L Barometric Pressure 732.0 mm/Hg Oxygen Given 45% Sodium (136-145) mmol/L Potassium (3.5-5.1) mmol/L Chloride (98-107) mmol/L Carbon Dioxide (21-32) mmol/L Anion Gap (3-11) BUN (7-18) mg/dl Creatinine (0.6-1.2) mg/dl Est Cr Clr Drug Dosing ml/min Est GFR ( Amer) Est GFR (Non-Af Amer) BUN/Creatinine Ratio (10-20) Glucose (70-99) mg/dl POC Glucose 138 H (70-99) Estimat Average Glucose Pending Hemoglobin A1c Pending Calcium (8.5-10.1) mg/dl Magnesium (1.8-2.4) mg/dl Total Bilirubin (0.2-1) mg/dl Direct Bilirubin (0-0.2) mg/dl AST (15-37) U/L ALT (12-78) U/L Alkaline Phosphatase (45-117) U/L Total Protein (6.4-8.2) gm/dl Albumin (3.4-5.0) gm/dl Globulin (2.5-4.0) gm/dl Albumin/Globulin Ratio (0.9-2) 10/20/18 10/20/18 10/19/18 Range/Units 03:58 03:58 21:40 WBC 18.60 H (4.8-10.8) K/uL RBC 4.13 L (4.2-5.4) M/uL Hgb 11.9 L (12.0-16.0) g/dL Hct 36.3 L (37-47) % MCV 87.9 (80-100) fL MCH 28.8 (25-34) pg MCHC 32.8 (32-36) g/dL RDW Std Deviation 46.3 (36.4-46.3) fL RDW Coeff of Michelle 14.4 (11.5-14.5) % Plt Count 193 (130-400) K/uL MPV 11.7 H (7.4-10.4) fL Immature Gran % (Auto) 0.3 % Neut % (Auto) 95.9 % Lymph % (Auto) 1.9 % [place] % (Auto) 1.9 % Eos % (Auto) 0.0 % Baso % (Auto) 0.0 % Immature Gran # (Auto) 0.06 H (0.00-0.02) K/uL Neut # (Auto) 17.84 H (1.4-6.5) K/uL Lymph # (Auto) 0.35 L (1.2-3.4) K/uL Davis # (Auto) 0.35 (0.11-0.59) K/uL Eos # (Auto) 0.00 (0-0.5) K/uL Baso # (Auto) 0.00 (0-0.2) K/uL ABG pH (7.35-7.45) ABG pCO2 (35-46) mmHg ABG pO2 (80-95) mm/Hg ABG HCO3 (19-24) mmol/L ABG O2 Saturation (90-95) % ABG Base Excess (-9-1.8) mEq/L Dao Test (Pos) VBG pH (7.36-7.41) VBG pCO2 (38-50) mmHg VBG pO2 mmHg VBG HCO3 mmol/L VBG O2 Saturation % VBG Base Excess mEq/L Barometric Pressure mm/Hg Oxygen Given Sodium 130 L D (136-145) mmol/L Potassium 3.9 (3.5-5.1) mmol/L Chloride 92 L (98-107) mmol/L Carbon Dioxide 33 H (21-32) mmol/L Anion Gap 5.0 (3-11) BUN 17 (7-18) mg/dl Creatinine 0.84 D (0.6-1.2) mg/dl Est Cr Clr Drug Dosing 59.2 ml/min Est GFR ( Amer) 79.4 Est GFR (Non-Af Amer) 68.5 BUN/Creatinine Ratio 20.4 H (10-20) Glucose 138 H (70-99) mg/dl POC Glucose 132 H (70-99) Estimat Average Glucose Hemoglobin A1c Calcium 8.6 (8.5-10.1) mg/dl Magnesium 2.2 (1.8-2.4) mg/dl Total Bilirubin 0.6 (0.2-1) mg/dl Direct Bilirubin 0.1 (0-0.2) mg/dl AST 33 (15-37) U/L ALT 29 (12-78) U/L Alkaline Phosphatase 92 (45-117) U/L Total Protein 6.6 (6.4-8.2) gm/dl Albumin 3.0 L (3.4-5.0) gm/dl Globulin 3.6 (2.5-4.0) gm/dl Albumin/Globulin Ratio 0.8 L (0.9-2) 10/19/18 10/19/18 10/19/18 Range/Units 16:42 15:54 11:32 WBC (4.8-10.8) K/uL RBC (4.2-5.4) M/uL Hgb (12.0-16.0) g/dL Hct (37-47) % MCV (80-100) fL MCH (25-34) pg MCHC (32-36) g/dL RDW Std Deviation (36.4-46.3) fL RDW Coeff of Michelle (11.5-14.5) % Plt Count (130-400) K/uL MPV (7.4-10.4) fL Immature Gran % (Auto) % Neut % (Auto) % Lymph % (Auto) % [place] % (Auto) % Eos % (Auto) % Baso % (Auto) % Immature Gran # (Auto) (0.00-0.02) K/uL Neut # (Auto) (1.4-6.5) K/uL Lymph # (Auto) (1.2-3.4) K/uL Davis # (Auto) (0.11-0.59) K/uL Eos # (Auto) (0-0.5) K/uL Baso # (Auto) (0-0.2) K/uL ABG pH (7.35-7.45) ABG pCO2 (35-46) mmHg ABG pO2 (80-95) mm/Hg ABG HCO3 (19-24) mmol/L ABG O2 Saturation (90-95) % ABG Base Excess (-9-1.8) mEq/L Dao Test (Pos) VBG pH 7.27 L (7.36-7.41) VBG pCO2 73 H (38-50) mmHg VBG pO2 66 mmHg VBG HCO3 33 mmol/L VBG O2 Saturation 92.1 % VBG Base Excess 3.4 mEq/L Barometric Pressure 732.1 mm/Hg Oxygen Given Sodium (136-145) mmol/L Potassium (3.5-5.1) mmol/L Chloride (98-107) mmol/L Carbon Dioxide (21-32) mmol/L Anion Gap (3-11) BUN (7-18) mg/dl Creatinine (0.6-1.2) mg/dl Est Cr Clr Drug Dosing ml/min Est GFR ( Amer) Est GFR (Non-Af Amer) BUN/Creatinine Ratio (10-20) Glucose (70-99) mg/dl POC Glucose 157 H 184 H (70-99) Estimat Average Glucose Hemoglobin A1c Calcium (8.5-10.1) mg/dl Magnesium (1.8-2.4) mg/dl Total Bilirubin (0.2-1) mg/dl Direct Bilirubin (0-0.2) mg/dl AST (15-37) U/L ALT (12-78) U/L Alkaline Phosphatase (45-117) U/L Total Protein (6.4-8.2) gm/dl Albumin (3.4-5.0) gm/dl Globulin (2.5-4.0) gm/dl Albumin/Globulin Ratio (0.9-2)
--- NOTE | 2018-10-20 12:28 | XRay Report ---
XR chest 1V portable HISTORY: dyspnea COMPARISON: Chest 10/19/2018. FINDINGS: Emphysema. Bibasilar airspace opacities persist. The heart remains mildly enlarged. The upp er lung zones are clear. No pneumothorax. IMPRESSION: No change in the mild cardiomegaly and bibasilar airspace opacities Electronically signed by: Albert Rios M.D. 10/20/2018 12:26 PM
[2018-10-20] MEDS ORDERED: PROCHLORPERAZINE 5 MG in SYRINGE 4 ML IV PRN (12:41)
[2018-10-20] MEDS: methylPREDNISolone 40 MG in SYRINGE 0 ML IV SCH ×2 (13:48→21:00)
[2018-10-20] MEDS ORDERED: HEPARIN IV BOLUS 5,000 UNITS in SYRINGE 0 ML IV ONE ×2 (14:01→16:15)
[2018-10-20] MEDS ORDERED: ASPIRIN 81 MG ECTAB PO STA (14:06)
[2018-10-20 15:02] LABS: Creatine Kinase MB 7.9 ng/ml (0.5-3.6); Troponin I 0.375 ng/ml (0-0.045)
[2018-10-20] MEDS: POLYETHYLENE (MIRALAX) 17 GM PACK PO SCH (15:38)
[2018-10-20 17:18] LABS: Partial Thromboplastin Ratio 0.9; Partial Thromboplastin Time 25.1 Seconds (21.0-31.0); Prothrombin Time 10.4 Seconds (9.0-12.0)
[2018-10-20] MEDS: Heparin Adult STANDARD Wt-Based Dextrose 5% 25,000 units/500 mL IV SCH (17:23)
--- NOTE | 2018-10-20 17:30 | Cardiology Consultation ---
Date of Consultation October 20, 2018 Assessment & Plan (1) Elevated troponin: Modestly elevated troponin in the context of the patient's acutely distressed initial presentation followed by hemodynamic lability is a nonspecific finding. However, the patient does have a potentially new wall alaina on abnormality and a dynamic ECG, raising the possibility of an acute cardiac event. Weighing against thrombotic phenomenon is the lack of chest pain, the finding of normal CK level, and the fact that the wall motion abnormalities area of mild to moderate hypokinesis (rather than akinesis) and are not particularly focal. Certainly, pulmonary embolism would be high on the differential list, fortunately her chest CT angiogram was negative for significant pulmonary embolus. Given conflicting information, reasonable to anticoagulate, although again the risk of a thrombotic event seems fairly low. Alternative explanations are Takotsubo syndrome (troponin rise, apical wall motion abnormality, inverted T- waves) or simply some degree of apical supply/demand mismatch due to physiologic stress with demand ischemia and transient wall motion abnormalities. Recommend discrete use of IV beta-romulo if she develops non physiologic tachycardia (e,g, HR>110 bpm in the absence of respiratory distress), in the meantime continuing Coreg seems appropriate. Low-dose aspirin is reasonable as well. Obtain serial enzymes and consider repeat echocardiogram if her clinical status changes, there are marked enzyme elevations, or ECG shows progressive findings. Her pre-admission symptoms of abdominal and back discomfort could well be diaphragmatic muscle fatigue from her significant COPD/respiratory efforts, less likely but possibly anginal symptoms. Will wait the merits of further cardiac evaluation once she has fully recovered from her acute respiratory distress episode (2) Acute on chronic respiratory failure with hypoxia and hypercapnia: Per primary team. (3) Acute on chronic combined systolic and diastolic CHF (congestive heart fail ure): Difficult to assess given the severity of her underlying lung disease. This would tend to the mask chest x-ray findings of pulmonary edema and her labile neck veins make volume assessment difficult. She does not have significant leg edema currently and is not obviously volume overloaded. She did receive a dose of IV Lasix yesterday, but became azotemic and hypotensive. Given her history of cor pulmonale, she may be very sensitive to volume unloading. In the absence of more definitive evidence of hypervolemia/congestive failure, would use diuretics only on a p.r.n. basis to balance input/output and not administer routinely. (4) COPD (chronic obstructive pulmonary disease): Severe, oxygen dependent longstanding COPD with cor pulmonale. PFTs a number of years ago showed FEV1 of less than 50 % predicted. History of Present Illness Attending Physician: Sukhwinder Vega History of Present Illness 72-year-old woman with history of significant COPD (oxygen dependent), prior pulmonary embolism, chronic diastolic congestive heart failure, hypertension, diabetes mellitus, and other medical problems who was admitted 10/18/2018 after presenting with respiratory distress requiring emergent intubation. She was extubated yesterday and is on supplemental oxygen today. Her hemodynamics have been labile with initial hypertension on the day of admission, followed by moderate hypotension yesterday, mostly normotensive today. She has been tachycardic up to 144 bpm yesterday, overnight and today her heart rate has been in the 90s and stable. She notes some difficulty catching her breath even at rest currently, but denies any chest or abdominal pain as an inpatient. Of note, she had approximately 4 episodes of abdominal pain radiating to the back occurring prior to admission, each lasted about 15 minutes. She did not note any actual chest pain during these episodes. Over the past 24 hours, her ECG showed new T-wave inversions and her echocardiogram showed mild reduction in LV systolic function with [id number] apical hypokinesis which is new compared with a 2017 study. Related initial troponin was elevated, CK was not elevated but MB fraction was positive. At the time of my evaluation, she noted dyspnea at rest but no other symptoms. Allergies Allergy/AdvReac Type Severity Reaction Status Date / Time No Known Allergies Allergy Unverified 03/11/14 01:27 Home Medications Home Medications Medication Instructions Recorded Confirmed Type albuterol sulfate [Proventil HFA] 2 puff INHALATION UD PRN 10/18/18 10/18/18 History amlodipine 5 mg PO DAILY 10/18/18 10/18/18 History atorvastatin 40 mg PO HS 10/18/18 10/18/18 History budesonide-formoterol [Symbicort] 2 puff INHALATION BID 10/18/18 10/18/18 History bupropion HCl [Wellbutrin SR] 150 mg PO DAILY 10/18/18 10/18/18 History carvedilol 12.5 mg PO BID 10/18/18 10/18/18 History cholecalciferol (vitamin D3) 2,000 unit PO DAILY 10/18/18 10/18/18 History [Vitamin D3] tiotropium bromide [Spiriva with 1 cap INHALATION DAILY 10/18/18 10/18/18 History HandiHaler] triamterene-hydrochlorothiazid 1 cap PO DAILY 10/18/18 10/18/18 History Patient History Medical History Chronic kidney disease, stage 3a (Chronic) Anxiety (Chronic) Hypertension (Chronic) COPD (chronic obstructive pulmonary disease) (Chronic) Chronic diastolic congestive heart failure Cor pulmonale, chronic Dyslipidemia Pulmonary embolism (2013) Pulmonary hypertension Family History No significant family history Social History Preferred Language: Scottish Communication Ability: Effective 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 Skin: No unusual lesions or ecchymosis. HEENT: Unremarkable. Neck: Jugular venous pulse with very wide respiratory variation, difficult to assess average meniscus, no carotid bruits. Lungs: Markedly reduced breath sounds with diminished air flow, no obvious wheezing or crackles. No abdominal pared ox or intercostal retractions. Cardiac: Regular rhythm without obvious murmur or gallop, normal S1 with increased pulmonic component to S2. Abdomen: Benign. Extremities: Nontender without pitting edema. Intact peripheral pulses. Neurologic: Normal affect, nonfocal Results & Data Vital Signs (Past 12 Hours) Vital Signs Temp Pulse Pulse Resp BP BP Pulse Ox 10/20/18 16:00 37.0 C 100 H 94 H 22 161/77 H 100 10/20/18 15:19 88 20 95 10/20/18 15:17 99 H 24 95 10/20/18 15:10 99 H 24 95 10/20/18 15:00 100 H 29 H 162/128 H 95 10/20/18 14:00 88 26 H 135/91 97 10/20/18 13:00 86 26 H 132/81 99 10/20/18 12:00 37.2 C 86 27 H 128/75 97 10/20/18 11:00 84 24 126/60 99 10/20/18 10:00 84 26 H 122/66 97 10/20/18 09:05 24 132/65 91 10/20/18 08:00 37.3 C 92 H 27 H 148/62 H 97 10/20/18 07:29 20 96 10/20/18 07:28 92 H 95 10/20/18 07:00 37.3 C 92 H 24 118/81 97 Laboratory Results Laboratory Tests 10/18/18 10/20/18 10/20/18 21:15 03:58 03:58 WBC 18.60 H Hgb 11.9 L Plt Count 193 ABG pH ABG pCO2 ABG pO2 ABG HCO3 Sodium 130 L D BUN 17 Creatinine 0.84 D Total Creatine Kinase CK/CKMB % Calc Troponin I 0.021 Albumin 3.0 L 10/20/18 10/20/18 03:58 14:15 WBC Hgb Plt Count ABG pH 7.39 ABG pCO2 53 H ABG pO2 91 ABG HCO3 32 H Sodium BUN Creatinine Total Creatine Kinase 119 CK/CKMB % Calc 6.6 H Troponin I 0.375 H* Albumin Diagnostic Findings ECG on admission (10/18/2018) showed sinus tachycardia 144 bpm with nonspecific interventricular conduction delay. ECG today showed sinus rhythm an 84 bpm with T-wave inversions in the anterior and lateral leads which are new. CXR 10/20/18- FINDINGS: Emphysema. Bibasilar airspace opacities persist. The heart remains mildly enlarged. The upper lung zones are clear. No pneumothorax. IMPRESSION: No change in the mild cardiomegaly and bibasilar airspace opacities ECHO- Echocardiogram from 10/18/2018 showed normal left ventricular size with mildly reduced systolic function (EF 45 %), mild to moderate apical wall hypokinesis, [id number] tricuspid regurgitation with mild pulmonary hypertension. Compared to 2017 study, LV systolic function has declined slightly and apical hypokinesis now noted, previous right heart findings are much less prominent, right ventricular systolic pressure is Dyazide, IVC diameter now normal to reduced.
--- NOTE | 2018-10-20 17:35 | Hospitalist Progress Note ---
Date of Service October 20, 2018 Assessment & Plan (1) Acute on chronic respiratory failure with hypoxia and hypercapnia: acute component - multifactorial - COPD exacerbation, b/l pneumonia, and acute/chronic CHF. intubated at admission -- then extubated AM of 10/19. following extubation had distress. refused to wear BIPAP. Transitioned to high-flow NC. received additional IV lasix yesterday. today she is improved. continue HF NC and supportive care. continue antibiotics and steroids. continue nebs. (2) Acute on chronic combined systolic and diastolic CHF (congestive heart failure): ECHO with EF 45-50% and grade 1 diastolic dysfunction. There are wall motion abnormalities in the apex. Her EKG today shows anterior wall inverted T waves. Her volume status looks better today. Cont BB. Will need JAVAD. (3) COPD with exacerbation: Improving albeit slowly. Continue IV steroids. Resumed home inhalers. HF NC O2; maintain sats low 90s. Continue nebs and supportive care. Continue antibiotics. (4) Abnormal EKG: anterior T wave inversions seen on today's EKG. she has apical wall motion abnormality on echo. she reports several episodes of abdominal pain radiating to her back and her ear in the weeks leading up to this admission. these episodes may be anginal equivalent. I have asked Dr Bolaños from cardiology to see in consult. Cont BB - titrate. Cont statin. Add asa 81mg daily. Troponin rechecked today - modest elevation - this could simply be myocardial demand ischemia in setting of respiratory failure but in light of EKG/echo cannot rule out tiny NSTEMI. (5) Elevated troponin: see discussion above (6) Bilateral pneumonia: Continue levaquin. day # 2 of 7. Continue supportive care. Broaden abx if any clinical worsening. (7) Hypertension: Continue home meds increase coreg to 18.75mg BID (8) Hyperlipidemia: Continue statin therapy. (9) Hyperglycemia: Could be 2nd to steroids but check a1c; rule out T2DM. Pharmacy to manage hyperglycemia per protocol. Add basal insulin if necessary. (10) Chronic kidney disease, stage 3a: Appears to have CKD stage 3. BMP again in am for stability. (11) DVT prophylaxis: lovenox 40mg daily will need PT/OT Subjective patient feels better today. less dyspnea. still coughing. minimal sputum. she again mentions "the 4 times I had that abdominal pain." when she describes it she reports abdominal pain that radiates to her back and then she has pain in her ear. has NOT had these symptoms while hospitalized but had these spells prior to admission. Review of Systems Constitutional: no fever and no chills Respiratory: + cough, + dyspnea and + dyspnea on exertion; no hemoptysis and no sputum production Cardiovascular: as per Subjective / HPI, + dyspnea at rest, + orthopnea, + paroxysmal nocturnal dyspnea and + edema; no chest pain Gastrointestinal: + constipation; no abdominal pain, no nausea and no vomiting Physical Exam Constitutional: no acute distress (looks much better today) and no altered mental status ENMT: external ear and nose normal, oropharynx normal Respiratory: Auscultation: + rales (bases - improved today) and + wheezes (minimal - improved today) no distress; improved airation today Cardiovascular: Rate/Rhythm: regular rate and regular rhythm Heart Sounds: normal S1 and normal S2; no murmur Vessels: posterior tibial pulses present and dorsalis pedis pulses present Extremities: + edema (<1+ b/l) Gastrointestinal (Abdomen): normal bowel sounds, soft, nontender, no hepatosplenomegaly Psychiatric: Orientation: alert and oriented x 3 Results & Data Vital Signs (Past 12 Hours) Vital Signs Temp Pulse Pulse Resp BP BP Pulse Ox 10/20/18 16:00 37.0 C 100 H 94 H 22 161/77 H 100 10/20/18 15:19 88 20 95 10/20/18 15:17 99 H 24 95 10/20/18 15:10 99 H 24 95 10/20/18 15:00 100 H 29 H 162/128 H 95 10/20/18 14:00 88 26 H 135/91 97 10/20/18 13:00 86 26 H 132/81 99 10/20/18 12:00 37.2 C 86 27 H 128/75 97 10/20/18 11:00 84 24 126/60 99 10/20/18 10:00 84 26 H 122/66 97 10/20/18 09:05 24 132/65 91 10/20/18 08:00 37.3 C 92 H 27 H 148/62 H 97 10/20/18 07:29 20 96 10/20/18 07:28 92 H 95 10/20/18 07:00 37.3 C 92 H 24 118/81 97 Laboratory Results Laboratory Results - last 24 hr 10/19/18 10/20/18 10/20/18 21:40 03:58 03:58 WBC 18.60 H RBC 4.13 L Hgb 11.9 L Hct 36.3 L MCV 87.9 MCH 28.8 MCHC 32.8 RDW Std Deviation 46.3 RDW Coeff of Michelle 14.4 Plt Count 193 MPV 11.7 H Immature Gran % (Auto) 0.3 Neut % (Auto) 95.9 Lymph % (Auto) 1.9 Holmes % (Auto) 1.9 Eos % (Auto) 0.0 Baso % (Auto) 0.0 Immature Gran # (Auto) 0.06 H Neut # (Auto) 17.84 H Lymph # (Auto) 0.35 L Holmes # (Auto) 0.35 Eos # (Auto) 0.00 Baso # (Auto) 0.00 PT INR APTT PTT Ratio ABG pH ABG pCO2 ABG pO2 ABG HCO3 ABG O2 Saturation ABG Base Excess Dao Test Barometric Pressure Oxygen Given Sodium 130 L D Potassium 3.9 Chloride 92 L Carbon Dioxide 33 H Anion Gap 5.0 BUN 17 Creatinine 0.84 D Est Cr Clr Drug Dosing 59.2 Est GFR ( Amer) 79.4 Est GFR (Non-Af Amer) 68.5 BUN/Creatinine Ratio 20.4 H Glucose 138 H POC Glucose 132 H Estimat Average Glucose Hemoglobin A1c Calcium 8.6 Magnesium 2.2 Total Bilirubin 0.6 Direct Bilirubin 0.1 AST 33 ALT 29 Alkaline Phosphatase 92 Total Creatine Kinase CK-MB (CK-2) CK/CKMB % Calc Troponin I Total Protein 6.6 Albumin 3.0 L Globulin 3.6 Albumin/Globulin Ratio 0.8 L 10/20/18 10/20/18 10/20/18 03:58 03:58 07:24 WBC RBC Hgb Hct MCV MCH MCHC RDW Std Deviation RDW Coeff of Michelle Plt Count MPV Immature Gran % (Auto) Neut % (Auto) Lymph % (Auto) Holmes % (Auto) Eos % (Auto) Baso % (Auto) Immature Gran # (Auto) Neut # (Auto) Lymph # (Auto) Holmes # (Auto) Eos # (Auto) Baso # (Auto) PT INR APTT PTT Ratio ABG pH 7.39 ABG pCO2 53 H ABG pO2 91 ABG HCO3 32 H ABG O2 Saturation 96.8 H ABG Base Excess 5.5 H Dao Test POS Barometric Pressure 732.0 Oxygen Given 45% Sodium Potassium Chloride Carbon Dioxide Anion Gap BUN Creatinine Est Cr Clr Drug Dosing Est GFR ( Amer) Est GFR (Non-Af Amer) BUN/Creatinine Ratio Glucose POC Glucose 138 H Estimat Average Glucose Pending Hemoglobin A1c Pending Calcium Magnesium Total Bilirubin Direct Bilirubin AST ALT Alkaline Phosphatase Total Creatine Kinase CK-MB (CK-2) CK/CKMB % Calc Troponin I Total Protein Albumin Globulin Albumin/Globulin Ratio 10/20/18 10/20/18 10/20/18 12:04 14:15 16:56 WBC RBC Hgb Hct MCV MCH MCHC RDW Std Deviation RDW Coeff of Michelle Plt Count MPV Immature Gran % (Auto) Neut % (Auto) Lymph % (Auto) Holmes % (Auto) Eos % (Auto) Baso % (Auto) Immature Gran # (Auto) Neut # (Auto) Lymph # (Auto) Holmes # (Auto) Eos # (Auto) Baso # (Auto) PT 10.4 INR 1.0 APTT 25.1 PTT Ratio 0.9 ABG pH ABG pCO2 ABG pO2 ABG HCO3 ABG O2 Saturation ABG Base Excess Dao Test Barometric Pressure Oxygen Given Sodium Potassium Chloride Carbon Dioxide Anion Gap BUN Creatinine Est Cr Clr Drug Dosing Est GFR ( Amer) Est GFR (Non-Af Amer) BUN/Creatinine Ratio Glucose POC Glucose 151 H Estimat Average Glucose Hemoglobin A1c Calcium Magnesium Total Bilirubin Direct Bilirubin AST ALT Alkaline Phosphatase Total Creatine Kinase 119 CK-MB (CK-2) 7.9 H CK/CKMB % Calc 6.6 H Troponin I 0.375 H* Total Protein Albumin Globulin Albumin/Globulin Ratio Diagnostic Findings cxr - bibasilar infiltrates (1) Bilateral pneumonia Pneumonia type: due to unspecified organism Lung location: lower lobe of lung Qualified Code(s): J18.1 - Lobar pneumonia, unspecified organism (2) Hypertension Hypertension type: essential hypertension Qualified Code(s): I10 - Essential (primary) hypertension (3) Hyperlipidemia Hyperlipidemia type: mixed hyperlipidemia Qualified Code(s): E78.2 - Mixed hyperlipidemia
[2018-10-20 19:57] LABS: Creatine Kinase MB 6.9 ng/ml (0.5-3.6); Troponin I 0.355 ng/ml (0-0.045)
[2018-10-20] MEDS: ATORVASTATIN 40 MG TAB PO SCH (21:01)
[2018-10-20] MEDS: PANTOprazole 40 MG TAB PO SCH (21:01)
[2018-10-21 00:07] LABS: Partial Thromboplastin Ratio 2.5
[2018-10-21] MEDS: ALBUT/IPRATROP 3MG/0.5MG NEB 3 ML VIAL NEB PRN (00:09)
[2018-10-21 00:10] LABS: Partial Thromboplastin Time 69.1 Seconds (21.0-31.0)
[2018-10-21] MEDS ORDERED: FUROSEMIDE 20 MG in SYRINGE 0 ML IV ONE (01:20)
[2018-10-21] MEDS: LEVOFLOXACIN/D5W 500 MG/100 ML BAG IV SCH (01:46)
[2018-10-21] MEDS: methylPREDNISolone 40 MG in SYRINGE 0 ML IV SCH (01:47)
[2018-10-21 01:53] LABS: Creatine Kinase MB 6.3 ng/ml (0.5-3.6); Troponin I 0.274 ng/ml (0-0.045)
[2018-10-21] MEDS: ALBUT/IPRATROP 3MG/0.5MG NEB 3 ML VIAL NEB SCH (02:53)
[2018-10-21 06:01] LABS: Estimated Average Glucose 126 mg/dl
--- NOTE | 2018-10-21 06:03 | XRay Report ---
XR chest 1V portable CLINICAL HISTORY: SOB dyspnea COMPARISON STUDY: 10/20/2018 FINDINGS: Unchanged exam. No significant cardiac enlargement. Unchanged bibasilar interstitial and br onchovascular prominence. IMPRESSION: Unchanging basilar parenchymal prominence. Mid and upper lungs remain clear. The above report was generated using voice recognition software. It may contain grammatical, syntax or spelling errors. Electronically signed by: Piyush Lewis M.D. 10/21/2018 6:01 AM
[2018-10-21 06:57] LABS: Partial Thromboplastin Ratio 3.1
[2018-10-21 07:01] LABS: Partial Thromboplastin Time 85.1 Seconds (21.0-31.0)
[2018-10-21 07:06] LABS: BUN Creatinine Ratio 25.3 (10-20); Calcium 9.2 mg/dl (8.5-10.1); Creatinine Clr Calc Pharmacy 47.1 ml/min; Est GFR (African American) 61.3; Est GFR (Non-African American) 52.9; Potassium 3.2 mmol/L (3.5-5.1)
[2018-10-21 07:09] LABS: Creatine Kinase MB 6.2 ng/ml (0.5-3.6)
--- NOTE | 2018-10-21 07:17 | Cardiology Progress Note ---
Date of Service October 21, 2018 Assessment & Plan (1) Elevated troponin: Modestly elevated troponin in the context of the patient's acutely distressed initial presentation followed by hemodynamic lability is a nonspecific finding. However, the patient does have a potentially new wall motion abnormality and a dynamic ECG, raising the possibility of an acute cardiac event. Weighing against thrombotic phenomenon is the lack of chest pain, the finding of consistently normal CK level, and the fact that the wall motion abnormalities area of mild to moderate hypokinesis (rather than akinesis) and are not particularly focal. Given conflicting information, reasonable to anticoagulate, although again the risk of a thrombotic event seems fairly low. Alternative explanations are Takotsubo syndrome (troponin rise, apical wall motion abnormality, inverted T- waves) or simply some degree of apical supply/demand mismatch due to physiologic stress with demand ischemia and transient wall motion abnormalities. Recommend discrete use of IV beta-romulo if she develops non physiologic tachycardia (e,g, HR>110 bpm in the absence of respiratory distress), in the meantime continuing Coreg seems appropriate. Low-dose aspirin is reasonable as well. Her symptoms of abdominal and back discomfort could well be diaphragmatic muscle fatigue from her significant COPD/respiratory efforts, less likely but possibly anginal symptoms. Case discussed with critical care and hospitalist teams. (2) Acute on chronic respiratory failure with hypoxia and hypercapnia: Per primary team. (3) Acute on chronic combined systolic and diastolic CHF (congestive heart failure): Difficult to assess volume status given the severity of her underlying lung disease. No overt failure on chest x-ray this morning, but she did seem to respond to a dose of IV diuretic last night. Would use p.r.n. IV furosemide for any respiratory distress but not necessarily institute daily dosing of (other than to keep I/O even). Given her history of cor pulmonale, she may be very sensitive to volume unloading. (4) COPD (chronic obstructive pulmonary disease): Severe, oxygen dependent longstanding COPD with cor pulmonale. PFTs a number of years ago showed FEV1 of less than 50 % predicted. Subjective 72-year-old woman with history of significant COPD (oxygen dependent), prior pulmonary embolism, chronic diastolic congestive heart failure, hypertension, diabetes mellitus, and other medical problems who was admitted 10/18/2018 after presenting with respiratory distress requiring emergent intubation. She was extubated 10/19/18 but her respiratory status remains borderline. Her hemodynamics were initially quite labile, although they improved yesterday last evening she was again hypertensive (but not tachycardia). She did have an episode of abdominal discomfort lasting 10 or 15 minutes last evening, this was in the context of some degree of increased respiratory effort. No chest pain associated with this. She was given IV Lasix and responded to this with improved urine output and improve respiratory status. This morning, she still has sufficient dyspnea that she is unable to eat her breakfast, but she is able to tolerate sitting quietly without activity. No chest or abdominal pain currently. Review of Systems Respiratory: + dyspnea Cardiovascular: no chest pain Gastrointestinal: + abdominal pain Physical Exam Physical Exam: Not acutely distressed, but moderate respiratory effort is apparent. Skin: No unusual lesions or ecchymosis. HEENT: Unremarkable. Neck: Jugular venous pulse with very wide respiratory variation, difficult to assess average meniscus, no carotid bruits. Lungs: Markedly reduced breath sounds with diminished air flow, no obvious wheezing or crackles. No abdominal pared ox or intercostal retractions. Cardiac: Regular rhythm without obvious murmur or gallop, normal S1 with increased pulmonic component to S2. Abdomen: Benign. Non nontender Extremities: Nontender without pitting edema. Intact peripheral pulses. Neurologic: Normal affect, nonfocal Results & Data Vital Signs (Past 12 Hours) Vital Signs Temp Pulse Pulse Resp BP Pulse Ox 10/21/18 06:02 86 22 104/67 97 10/21/18 06:00 87 23 97 10/21/18 05:01 75 15 118/87 100 10/21/18 05:00 75 14 100 10/21/18 04:01 36.5 C 74 15 128/70 100 10/21/18 04:00 75 19 99 10/21/18 03:01 80 20 133/78 99 10/21/18 03:00 79 22 98 10/21/18 02:53 81 98 10/21/18 02:01 81 16 145/93 H 99 10/21/18 02:00 80 15 100 10/21/18 01:01 91 H 22 138/78 96 10/21/18 01:00 92 H 28 H 96 10/21/18 00:29 94 H 27 H 175/120 H 94 10/21/18 00:04 91 H 22 96 10/21/18 00:01 94 H 21 193/101 H 94 10/21/18 00:00 36.9 C 93 H 25 H 93 10/20/18 23:44 95 H 29 H 117/50 L 93 10/20/18 23:01 76 13 117/50 L 97 10/20/18 23:00 77 12 97 10/20/18 22:03 85 13 98 10/20/18 22:02 85 13 146/71 H 98 10/20/18 22:00 86 14 99 10/20/18 21:00 93 H 17 98 10/20/18 20:17 97 H 18 185/94 H 97 10/20/18 20:01 37.3 C 99 H 20 196/114 H 98 10/20/18 20:00 99 H 23 98 10/20/18 19:48 99 H Laboratory Results Laboratory Tests 10/20/18 10/21/18 10/21/18 19:17 01:12 06:02 Sodium 132 L Potassium 3.2 L D Chloride 91 L Carbon Dioxide 33 H BUN 26 H D Creatinine 1.04 Total Creatine Kinase 103 96 85 Diagnostic Findings ECG from last evening showed sinus rhythm with inverted anterior T-waves which were less prominent than the ECG earlier in the day. ECG today pending. Chest x-ray today showed bibasilar interstitial in bronchovascular prominence, mid and upper lungs were clear
[2018-10-21] MEDS ORDERED: POTASSIUM CHLORIDE 20 MEQ TABCR PO STA (07:28)
[2018-10-21] MEDS: INSULIN ASPART 100 UNITS/ML 3 ML PEN SC SCH ×4 (07:40→21:51)
[2018-10-21] MEDS: CARVEDILOL 12.5 MG TAB PO SCH ×2 (07:41→21:50)
[2018-10-21] MEDS: TIOTROPIUM BROMIDE 5 PUFF/90 MCG INH INH SCH (07:44)
[2018-10-21] MEDS: AMLODIPINE BESYLATE 5 MG TAB PO SCH (07:45)
[2018-10-21] MEDS: POLYETHYLENE (MIRALAX) 17 GM PACK PO SCH (07:46)
[2018-10-21] MEDS: TRIAMTERENE/HCTZ 37.5/25MG TAB PO SCH (07:46)
[2018-10-21] MEDS: ALBUTEROL 0.083% NEBU SOLN 3 ML VIAL NEB SCH ×3 (07:46→19:32)
[2018-10-21] MEDS: BUDESONIDE/FORMOTEROL FUMARATE 160/4.5 60 PUFFS/INHALER INH SCH ×2 (07:48→21:50)
[2018-10-21] MEDS: predniSONE 20 MG TAB PO SCH (07:54)
[2018-10-21] MEDS: ASPIRIN 81 MG ECTAB PO SCH (08:03)
--- NOTE | 2018-10-21 08:04 | Critical Care Progress Note ---
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 neuro Use morphinr 2 mg SC PRN Q6 for anxiety and mild SOB respiratory Symbiort 160/4.5 BID, SPiriva QD and QIDR Albuterol nebulizer May use BIPAP at night rather than lasix unless overt sign of fluid overload titrate O2 to SpO2 90-92%\No evidence of PE stopped solumedrol and started prednisone 40 mg Daily x 5 days CV continue atorvastatin 40 mg Daily amlodipine 5 mg Daily metoprolol PRN per cardiology continue carvidelol 12.5 mg BID continue heparin for a total of 48 hours troponins trending down GI pantoprazole daily as she was in respiratory failure diet low cholesterol heart healthy as tolerated Renal REplete K FU and replete lytes Mg and P ordered has mild hyponatremia will avoid hyponatremic IVF ID continue Levofloxacin for 5 days total Lines + black and PIV will attempt removing Black DVT prophylaxis she is on therapeutic heparin protocol Full code She is a possible transfer to med surg if she continues to be stable Total critical care time 45 min Subjective The patient says she was having difficulty breathing last night and needed lasix. She is better this am and was consuming breakfast without apparent distress. Her K was low and was replaced. Troponins and CK MB downtrending. Physical Exam Physical Exam: Not in apparent distress Eyes: PERRL, conjunctivae normal, anicteric sclerae no JVD Neck: trachea midline, no thyromegaly + short neck and + thick neck Respiratory: Normal effort no added sounds but diminished breath sounds Cardiovascular: RRR, no murmur, no edema Rate/Rhythm: regular rate Heart Sounds: normal S1 and normal S2 Gastrointestinal (Abdomen): normal bowel sounds, soft, nontender, no hepatosplenomegaly central obesity Musculoskeletal: no cyanosis or clubbing, extremities motor strength 5/5 Skin: no rashes, warm and dry Neurologic: no gross focal motor deficits Results & Data Vital Signs (Past 12 Hours) Vital Signs Temp Pulse Pulse Resp BP Pulse Ox 10/21/18 07:40 89 20 99 10/21/18 06:02 86 22 104/67 97 10/21/18 06:00 87 23 97 10/21/18 05:01 75 15 118/87 100 10/21/18 05:00 75 14 100 10/21/18 04:01 36.5 C 74 15 128/70 100 10/21/18 04:00 75 19 99 10/21/18 03:01 80 20 133/78 99 10/21/18 03:00 79 22 98 10/21/18 02:53 81 98 10/21/18 02:01 81 16 145/93 H 99 10/21/18 02:00 80 15 100 10/21/18 01:01 91 H 22 138/78 96 10/21/18 01:00 92 H 28 H 96 10/21/18 00:29 94 H 27 H 175/120 H 94 10/21/18 00:04 91 H 22 96 10/21/18 00:01 94 H 21 193/101 H 94 10/21/18 00:00 36.9 C 93 H 25 H 93 10/20/18 23:44 95 H 29 H 117/50 L 93 10/20/18 23:01 76 13 117/50 L 97 10/20/18 23:00 77 12 97 10/20/18 22:03 85 13 98 10/20/18 22:02 85 13 146/71 H 98 10/20/18 22:00 86 14 99 10/20/18 21:00 93 H 17 98 10/20/18 20:17 97 H 18 185/94 H 97 10/20/18 20:01 37.3 C 99 H 20 196/114 H 98 10/20/18 20:00 99 H 23 98
[2018-10-21 13:30] LABS: Partial Thromboplastin Ratio 2.3
[2018-10-21 13:51] LABS: Partial Thromboplastin Time 62.1 Seconds (21.0-31.0)
--- NOTE | 2018-10-21 14:49 | Hospitalist Progress Note ---
Date of Service October 21, 2018 Assessment & Plan (1) Acute on chronic respiratory failure with hypoxia and hypercapnia: Multifactorial - COPD exacerbation & acute/chronic CHF. Intubated at admission -- then extubated AM of 10/19. - Transitioned to high-flow NC. - Received additional IV Lasix on 10/19 - Continue antibiotics, steroids, & nebs. (2) Acute on chronic combined systolic and diastolic CHF (congestive heart failure): Echo with EF 45-50% and grade 1 diastolic dysfunction. There are wall motion abnormalities in the apex. - Continue beta-romulo. (3) COPD with exacerbation: Per prior notes, she is improving albeit slowly. Today, she is short- tempered with me and denies any improvement. - Continued IV steroids. - Resumed home inhalers. - HF NC O2; maintain sats low 90s. - Continue nebs and supportive care. - Continue antibiotics (4) Abnormal EKG: She has apical wall motion abnormality on echo. She reports several episodes of abdominal pain radiating to her back and her ear in the weeks leading up to this admission. - Cont beta-romulo & statin - Added ASA 81mg daily (5) Bilateral pneumonia: CXR on 10/18 was negative for infiltrates. Then, on 10/19, CXR and CT chest showed possible bibasilar infiltrates. - Continue levofloxacin - Started on 10/19 (6) Hypertension: Continue home meds Increase coreg to 18.75mg BID (7) Hyperlipidemia: Continue statin therapy. (8) Hyperglycemia: 2nd to steroids. A1c was 6.0% this admission. - Pharmacy to manage hyperglycemia per protocol. - Add basal insulin if necessary. (9) Chronic kidney disease, stage 3a: Appears to have CKD stage 3. Baseline Cr ~1.0 with eGFR ~50. - Monitored Cr (10) DVT prophylaxis: Lovenox 40mg daily Subjective Still reports she's short of breath. Review of Systems Review of Systems: All systems reviewed & are unremarkable except as noted in HPI & below Physical Exam Constitutional: WD/WN, vitals as above + acute distress Eyes: EOM intact bilaterally; no conjunctival abnormality ENMT: external ear and nose normal, oropharynx normal Neck: trachea midline, no thyromegaly normal visual inspection Respiratory: + respiratory distress, + labored breathing and + uses accessory muscles Cardiovascular: RRR, no murmur, no edema Gastrointestinal (Abdomen): Inspection/Auscultation: abdomen normal to in spection; abdomen not distended Musculoskeletal: no cyanosis or clubbing, extremities motor strength 5/5 Skin: no rashes, warm and dry Neurologic: moves all extremities and awake Psychiatric: Orientation: alert, oriented to person and cooperative Results & Data Vital Signs (Past 12 Hours) Vital Signs Temp Pulse Pulse Resp BP Pulse Ox 10/21/18 13:45 69 12 99 10/21/18 11:01 80 20 148/95 H 100 10/21/18 11:00 77 12 100 10/21/18 10:01 76 15 171/68 H 99 10/21/18 10:00 76 19 99 10/21/18 09:01 75 15 160/88 H 100 10/21/18 09:00 76 12 100 10/21/18 08:01 88 21 154/80 H 98 10/21/18 08:00 36.7 C 88 21 97 10/21/18 07:40 89 20 99 10/21/18 07:02 79 10 L 138/75 99 10/21/18 07:00 78 12 99 10/21/18 06:02 86 22 104/67 97 10/21/18 06:00 87 23 97 10/21/18 05:01 75 15 118/87 100 10/21/18 05:00 75 14 100 10/21/18 04:01 36.5 C 74 15 128/70 100 10/21/18 04:00 75 19 99 10/21/18 03:01 80 20 133/78 99 10/21/18 03:00 79 22 98 10/21/18 02:53 81 98 (1) Hyperlipidemia Hyperlipidemia type: mixed hyperlipidemia Qualified Code(s): E78.2 - Mixed hyperlipidemia (2) Bilateral pneumonia Lung location: lower lobe of lung Pneumonia type: due to unspecified organism Qualified Code(s): J18.1 - Lobar pneumonia, unspecified organism (3) Hypertension Hypertension type: essential hypertension Qualified Code(s): I10 - Essential (primary) hypertension
[2018-10-21] MEDS: Heparin Adult STANDARD Wt-Based Dextrose 5% 25,000 units/500 mL IV SCH (17:26)
[2018-10-21] MEDS: ATORVASTATIN 40 MG TAB PO SCH (21:50)
[2018-10-21] MEDS: PANTOprazole 40 MG TAB PO SCH (21:50)
[2018-10-22] MEDS: ALBUTEROL 0.083% NEBU SOLN 3 ML VIAL NEB SCH ×4 (01:53→19:37)
[2018-10-22] MEDS: LEVOFLOXACIN/D5W 500 MG/100 ML BAG IV SCH (01:56)
[2018-10-22 04:49] LABS: Hematocrit (blood only) 36.4 % (37-47); Hemoglobin 12.2 g/dL (12.0-16.0); Mean Corpuscular Hgb Conc 33.5 g/dL (32-36); Mean Corpuscular Volume 85.6 fL (80-100); Mean Platelet Volume 11.8 fL (7.4-10.4); Platelet Count 191 K/uL (130-400); RDW Coefficient of Variation 14.1 % (11.5-14.5); RDW Standard Deviation 44.3 fL (36.4-46.3); Red Blood Count 4.25 M/uL (4.2-5.4); White Blood Count 9.28 K/uL (4.8-10.8)
[2018-10-22 05:15] LABS: Albumin Globulin Ratio 0.8 (0.9-2); Albumin Level 2.8 gm/dl (3.4-5.0); Bilirubin,Total 0.6 mg/dl (0.2-1); Calcium 8.7 mg/dl (8.5-10.1); Creatinine Clr Calc Pharmacy 56.3 ml/min; Est GFR (African American) 76.1; Est GFR (Non-African American) 65.6; Globulin 3.3 gm/dl (2.5-4.0); Magnesium 2.2 mg/dl (1.8-2.4); Potassium 3.8 mmol/L (3.5-5.1); Total Protein 6.1 gm/dl (6.4-8.2)
[2018-10-22 08:08] LABS: Partial Thromboplastin Ratio 2.6
[2018-10-22] MEDS: INSULIN ASPART 100 UNITS/ML 3 ML PEN SC SCH ×4 (09:40→21:35)
[2018-10-22] MEDS: ASPIRIN 81 MG ECTAB PO SCH (09:41)
[2018-10-22] MEDS: CARVEDILOL 12.5 MG TAB PO SCH ×2 (09:41→21:05)
[2018-10-22] MEDS: predniSONE 20 MG TAB PO SCH (09:41)
[2018-10-22] MEDS: TRIAMTERENE/HCTZ 37.5/25MG TAB PO SCH (09:42)
[2018-10-22] MEDS: POLYETHYLENE (MIRALAX) 17 GM PACK PO SCH (09:42)
[2018-10-22] MEDS: AMLODIPINE BESYLATE 5 MG TAB PO SCH (09:42)
[2018-10-22] MEDS: TIOTROPIUM BROMIDE 5 PUFF/90 MCG INH INH SCH (09:42)
[2018-10-22] MEDS: BUDESONIDE/FORMOTEROL FUMARATE 160/4.5 60 PUFFS/INHALER INH SCH ×2 (09:43→21:04)
[2018-10-22 11:11] LABS: Patient Temperature 36.4; iSTAT Art Bld Gas pCO2 Correct 68 mmHg (35-46); iSTAT Art Bld Gas pH Corrected 7.306 (7.35-7.45); iSTAT Arterial Blood Gas pCO2 70 mmHg (35-46)
[2018-10-22] MEDS: ALBUT/IPRATROP 3MG/0.5MG NEB 3 ML VIAL NEB PRN (11:48)
--- NOTE | 2018-10-22 14:53 | Hospitalist Progress Note ---
Date of Service October 22, 2018 Assessment & Plan (1) Acute on chronic respiratory failure with hypoxia and hypercapnia: Multifactorial - COPD exacerbation & acute/chronic CHF. Intubated at admission -- then extubated AM of 10/19. Transitioned to high-flow NC. - Received additional IV Lasix on 10/19 - Continue antibiotics, steroids, & nebs. - Now down to 4L NC. Still reports shortness of breath. (2) Acute on chronic combined systolic and diastolic CHF (congestive heart failure): Echo with EF 45-50% and grade 1 diastolic dysfunction. There are wall motion abnormalities in the apex. - Continue beta-romulo. (3) COPD with exacerbation: Per prior notes, she is improving albeit slowly. Today, she is short- tempered with me and denies any improvement. - Continued IV steroids. - Resumed home inhalers. - Continue nebs and supportive care. - Continue antibiotics (4) Abnormal EKG: She has apical wall motion abnormality on echo. She reports several episodes of abdominal pain radiating to her back and her ear in the weeks leading up to this admission. - Cont beta-romulo & statin - Added ASA 81mg daily - Finished her heparin gtt on 10/22 for possible NSTEMI (5) Bilateral pneumonia: CXR on 10/18 was negative for infiltrates. Then, on 10/19, CXR and CT chest showed possible bibasilar infiltrates. - Continue levofloxacin - Started on 10/19 (6) Hypertension: Continue home meds Increase coreg to 18.75mg BID (7) Hyperlipidemia: Continue statin therapy. (8) Hyperglycemia: 2nd to steroids. A1c was 6.0% this admission. - Pharmacy to manage hyperglycemia per protocol. - Add basal insulin if necessary. (9) Chronic kidney disease, stage 3a: Appears to have CKD stage 3. Baseline Cr ~1.0 with eGFR ~50. - Monitored Cr (10) DVT prophylaxis: Lovenox 40mg daily Subjective Feeling better this morning. Review of Systems Review of Systems: All systems reviewed & are unremarkable except as noted in HPI & below Physical Exam Constitutional: WD/WN, vitals as above Eyes: EOM intact bilaterally; no conjunctival abnormality ENMT: external ear and nose normal, oropharynx normal Neck: trachea midline, no thyromegaly normal visual inspection Respiratory: normal respiratory effort, lungs clear to auscultation no respiratory distress Cardiovascular: RRR, no murmur, no edema Gastrointestinal (Abdomen): Inspection/Auscultation: abdomen normal to inspection; abdomen not distended Musculoskeletal: no cyanosis or clubbing, extremities motor strength 5/5 Skin: no rashes, warm and dry Neurologic: moves all extremities and awake Psychiatric: Orientation: alert, oriented to person and cooperative Results & Data Vital Signs (Past 12 Hours) Vital Signs Temp Pulse Pulse Resp BP Pulse Ox 10/22/18 13:01 73 18 102/69 96 10/22/18 12:01 73 20 135/65 98 10/22/18 11:50 74 26 H 93 10/22/18 11:01 68 20 97/73 L 95 10/22/18 10:01 71 18 142/74 H 97 10/22/18 09:01 75 21 148/79 H 96 10/22/18 08:00 36.6 C 10/22/18 07:03 74 23 177/100 H 98 10/22/18 06:51 74 18 89 L 10/22/18 06:01 64 10 L 132/65 95 10/22/18 06:00 65 11 L 94 10/22/18 05:07 63 14 95 10/22/18 05:01 68 21 143/74 H 97 10/22/18 05:00 61 13 97 10/22/18 04:01 36.5 C 69 20 160/119 H 94 10/22/18 04:00 70 20 94 10/22/18 03:02 65 17 153/76 H 94 10/22/18 03:00 66 10 L 94 (1) Bilateral pneumonia Pneumonia type: due to unspecified organism Lung location: lower lobe of lung Qualified Code(s): J18.1 - Lobar pneumonia, unspecified organism (2) Hypertension Hypertension type: essential hypertension Qualified Code(s): I10 - Essential (primary) hypertension (3) Hyperlipidemia Hyperlipidemia type: mixed hyperlipidemia Qualified Code(s): E78.2 - Mixed hyperlipidemia
[2018-10-22 16:14] LABS: Partial Thromboplastin Ratio 2.4; Partial Thromboplastin Time 63.8 Seconds (21.0-31.0)
[2018-10-22] MEDS: Heparin Adult STANDARD Wt-Based Dextrose 5% 25,000 units/500 mL IV SCH (17:20)
[2018-10-22] MEDS: PANTOprazole 40 MG TAB PO SCH (21:05)
[2018-10-22] MEDS: ATORVASTATIN 40 MG TAB PO SCH (21:06)
[2018-10-23] MEDS ORDERED: levoFLOXacin 500 MG TAB PO SCH
[2018-10-23] MEDS: ALBUTEROL 0.083% NEBU SOLN 3 ML VIAL NEB SCH ×2 (02:05→10:21)
[2018-10-23 08:14] LABS: Albumin Globulin Ratio 0.8 (0.9-2); BUN Creatinine Ratio 31.3 (10-20); Bilirubin,Total 0.6 mg/dl (0.2-1); Calcium 9.4 mg/dl (8.5-10.1); Creatinine Clr Calc Pharmacy 33.6 ml/min; Est GFR (African American) 40.7; Est GFR (Non-African American) 35.1; Globulin 3.6 gm/dl (2.5-4.0); Magnesium 2.5 mg/dl (1.8-2.4); Total Protein 6.6 gm/dl (6.4-8.2)
[2018-10-23] MEDS: INSULIN ASPART 100 UNITS/ML 3 ML PEN SC SCH ×4 (08:51→21:42)
[2018-10-23] MEDS: TIOTROPIUM BROMIDE 5 PUFF/90 MCG INH INH SCH (08:52)
[2018-10-23] MEDS: BUDESONIDE/FORMOTEROL FUMARATE 160/4.5 60 PUFFS/INHALER INH SCH ×2 (08:52→21:42)
[2018-10-23] MEDS: CARVEDILOL 12.5 MG TAB PO SCH ×2 (08:53→21:41)
[2018-10-23] MEDS: ENOXAPARIN INJ 40 MG/0.4 ML SYR SQ SCH (08:54)
[2018-10-23] MEDS: ASPIRIN 81 MG ECTAB PO SCH (08:54)
[2018-10-23] MEDS: AMLODIPINE BESYLATE 5 MG TAB PO SCH (08:55)
[2018-10-23] MEDS: TRIAMTERENE/HCTZ 37.5/25MG TAB PO SCH (08:55)
[2018-10-23] MEDS: predniSONE 20 MG TAB PO SCH (08:56)
[2018-10-23] MEDS: POLYETHYLENE (MIRALAX) 17 GM PACK PO SCH (08:56)
[2018-10-23] MEDS: ALBUTEROL HFA 8 GM INHALER INH SCH ×3 (11:35→21:48)
[2018-10-23] MEDS: ONDANSETRON INJ 2 MG/ML 2 ML VIAL IV PRN (11:42)
--- NOTE | 2018-10-23 13:09 | Hospitalist Progress Note ---
Date of Service October 23, 2018 Assessment & Plan (1) Acute on chronic respiratory failure with hypoxia and hypercapnia: Multifactorial - COPD exacerbation & acute/chronic CHF. Intubated at admission -- then extubated AM of 10/19. Transitioned to high-flow NC. - Received additional IV Lasix on 10/19 - Continue antibiotics, steroids, & nebs. - Now down to 4L NC. Still reports shortness of breath. - Will work with PT/OT today to see how her oxygenation does with movement. (2) Acute on chronic combined systolic and diastolic CHF (congestive heart failure): Echo with EF 45-50% and grade 1 diastolic dysfunction. There are wall motion abnormalities in the apex. - Continue beta-romulo. (3) COPD with exacerbation: Per prior notes, she is improving albeit slowly. Today, she is short- tempered with me and denies any improvement. - Continued IV steroids. - Resumed home inhalers. - Continue nebs and supportive care. - Continue antibiotics (4) Abnormal EKG: She has apical wall motion abnormality on echo. She reports several episodes of abdominal pain radiating to her back and her ear in the weeks leading up to this admission. Myocardial infarction type 2. - Cont beta-romulo & statin - Added ASA 81mg daily - Finished her heparin gtt on 10/22 for possible NSTEMI (5) Bilateral pneumonia: CXR on 10/18 was negative for infiltrates. Then, on 10/19, CXR and CT chest showed possible bibasilar infiltrates. - Continue levofloxacin - Started on 10/19 (6) Hypertension: BP normal in the last 24 hours. - Continue home meds - Increased Coreg to 18.75mg BID. (7) Hyperlipidemia: Continue statin therapy. (8) Hyperglycemia: 2nd to steroids. A1c was 6.0% this admission. - Pharmacy to manage hyperglycemia per protocol. - Add basal insulin if necessary. (9) Chronic kidney disease, stage 3a: Appears to have CKD stage 3. Baseline Cr ~1.0 with eGFR ~50. - Monitored Cr (10) DVT prophylaxis: Lovenox 40mg daily Subjective Does not feel any less shortness of breath today. Feels nausated. Review of Systems Review of Systems: All systems reviewed & are unremarkable except as noted in HPI & below Physical Exam Constitutional: WD/WN, vitals as above + acute distress Eyes: EOM intact bilaterally; no conjunctival abnormality ENMT: external ear and nose normal, oropharynx normal Neck: trachea midline, no thyromegaly normal visual inspection Respiratory: normal respiratory effort, lungs clear to auscultation + labored breathing and + uses accessory muscles; no respiratory distress Cardiovascular: RRR, no murmur, no edema Gastrointestinal (Abdomen): Inspection/Auscultation: abdomen normal to inspection; abdomen not distended Musculoskeletal: no cyanosis or clubbing, extremities motor strength 5/5 Skin: no rashes, warm and dry Neurologic: moves all extremities and awake Psychiatric: Orientation: alert, oriented to person and cooperative Results & Data Vital Signs (Past 12 Hours) Vital Signs Temp Pulse Resp BP Pulse Ox 10/23/18 11:23 36.5 C 69 18 102/70 98 10/23/18 07:19 36.5 C 74 18 121/57 L 99 10/23/18 02:07 71 16 98 (1) Bilateral pneumonia Pneumonia type: due to unspecified organism Lung location: lower lobe of lung Qualified Code(s): J18.1 - Lobar pneumonia, unspecified organism (2) Hypertension Hypertension type: essential hypertension Qualified Code(s): I10 - Essential (primary) hypertension (3) Hyperlipidemia Hyperlipidemia type: mixed hyperlipidemia Qualified Code(s): E78.2 - Mixed hyperlipidemia
[2018-10-23] MEDS ORDERED: NORMOSOL-R 500 ML IV ONE (13:10)
[2018-10-23] MEDS: PANTOprazole 40 MG TAB PO SCH (21:41)
[2018-10-23] MEDS: ATORVASTATIN 40 MG TAB PO SCH (21:41)
[2018-10-24] MEDS: ALBUTEROL HFA 8 GM INHALER INH SCH ×4 (04:20→20:02)
[2018-10-24 08:32] LABS: Albumin Level 2.9 gm/dl (3.4-5.0); Calcium 9.3 mg/dl (8.5-10.1); Creatinine Clr Calc Pharmacy 31.1 ml/min; Est GFR (Non-African American) 31.9; Potassium 4.8 mmol/L (3.5-5.1)
[2018-10-24 08:35] LABS: Albumin Globulin Ratio 0.9 (0.9-2); Bilirubin,Total 0.4 mg/dl (0.2-1); Globulin 3.1 gm/dl (2.5-4.0)
[2018-10-24] MEDS: BUDESONIDE/FORMOTEROL FUMARATE 160/4.5 60 PUFFS/INHALER INH SCH ×2 (08:51→20:02)
[2018-10-24] MEDS: INSULIN ASPART 100 UNITS/ML 3 ML PEN SC SCH ×4 (08:54→20:03)
[2018-10-24] MEDS: CARVEDILOL 12.5 MG TAB PO SCH ×2 (08:54→20:02)
[2018-10-24] MEDS: ASPIRIN 81 MG ECTAB PO SCH (08:55)
[2018-10-24] MEDS: ENOXAPARIN INJ 40 MG/0.4 ML SYR SQ SCH (08:55)
[2018-10-24] MEDS: TRIAMTERENE/HCTZ 37.5/25MG TAB PO SCH (08:56)
[2018-10-24] MEDS: AMLODIPINE BESYLATE 5 MG TAB PO SCH (08:56)
[2018-10-24] MEDS: predniSONE 20 MG TAB PO SCH (08:57)
[2018-10-24] MEDS: POLYETHYLENE (MIRALAX) 17 GM PACK PO SCH ×2 (09:00→17:44)
[2018-10-24] MEDS: TIOTROPIUM BROMIDE 5 PUFF/90 MCG INH INH SCH (10:22)
[2018-10-24] MEDS: ONDANSETRON INJ 2 MG/ML 2 ML VIAL IV PRN (11:49)
[2018-10-24] MEDS: ALBUT/IPRATROP 3MG/0.5MG NEB 3 ML VIAL NEB PRN ×2 (12:42→23:03)
--- NOTE | 2018-10-24 16:45 | Hospitalist Progress Note ---
Date of Service October 24, 2018 Assessment & Plan (1) Acute on chronic respiratory failure with hypoxia and hypercapnia: Multifactorial - COPD exacerbation & acute/chronic CHF. Intubated at admission -- then extubated AM of 10/19. Transitioned to high-flow NC. - Received additional IV Lasix on 10/19 - Continue antibiotics, steroids, & nebs. - Now down to 3L NC. Still reports shortness of breath. - Worked well with PT/OT. Plan for rehab. (2) Acute on chronic combined systolic and diastolic CHF (congestive heart failure): Echo with EF 45-50% and grade 1 diastolic dysfunction. There are wall motion abnormalities in the apex. - Continue beta-romulo. (3) COPD with exacerbation: Per prior notes, she is improving albeit slowly. Today, she is short- tempered with me and denies any improvement. - Continued IV steroids. - Resumed home inhalers. - Continue nebs and supportive care. - Continue antibiotics (4) Abnormal EKG: She has apical wall motion abnormality on echo. She reports several episodes of abdominal pain radiating to her back and her ear in the weeks leading up to this admission. Myocardial infarction type 2. - Cont beta-romulo & statin - Added ASA 81mg daily - Finished her heparin gtt on 10/22 for possible NSTEMI (5) Bilateral pneumonia: CXR on 10/18 was negative for infiltrates. Then, on 10/19, CXR and CT chest showed possible bibasilar infiltrates. - Was on levofloxacin - Started on 10/19; off by 10/20. - Repeat CXR in the morning. (6) Hypertension: BP normal in the last 24 hours. - Continue home meds - Increased Coreg to 18.75mg BID. (7) Hyperlipidemia: Continue statin therapy. (8) Hyperglycemia: 2nd to steroids. A1c was 6.0% this admission. - Pharmacy to manage hyperglycemia per protocol. - Add basal insulin if necessary. (9) Chronic kidney disease, stage 3a: Appears to have CKD stage 3. Baseline Cr ~1.0 with eGFR ~50. - Monitored Cr (10) DVT prophylaxis: Heparin 5000 units Q12h Subjective Reports no change in her shortness of breath. Also nauseated and poor appetite. Review of Systems Review of Systems: All systems reviewed & are unremarkable except as noted in HPI & below Physical Exam Constitutional: WD/WN, vitals as above + acute distress Eyes: EOM intact bilaterally; no conjunctival abnormality ENMT: external ear and nose normal, oropharynx normal Neck: trachea midline, no thyromegaly normal visual inspection Respiratory: normal respiratory effort, lungs clear to auscultation no respiratory distress Cardiovascular: RRR, no murmur, no edema Gastrointestinal (Abdomen): Inspection/Auscultation: abdomen normal to inspection; abdomen not distended Musculoskeletal: no cyanosis or clubbing, extremities motor strength 5/5 Skin: no rashes, warm and dry Neurologic: moves all extremities and awake Psychiatric: Orientation: alert, oriented to person and cooperative Results & Data Vital Signs (Past 12 Hours) Vital Signs Temp Pulse Pulse Resp BP BP Pulse Ox 10/24/18 16:00 64 67 10/24/18 15:24 36.6 C 69 18 113/72 91 10/24/18 12:44 67 18 92 10/24/18 11:34 36.4 C L 66 18 89/52 L 100 10/24/18 07:20 36.6 C 70 20 125/83 99 (1) Bilateral pneumonia Pneumonia type: due to unspecified organism Lung location: lower lobe of lung Qualified Code(s): J18.1 - Lobar pneumonia, unspecified organism (2) Hypertension Hypertension type: essential hypertension Qualified Code(s): I10 - Essential (primary) hypertension (3) Hyperlipidemia Hyperlipidemia type: mixed hyperlipidemia Qualified Code(s): E78.2 - Mixed hyperlipidemia
[2018-10-24] MEDS ORDERED: NORMOSOL-R 500 ML IV ONE (17:00)
[2018-10-24] MEDS: DOCUSATE SODIUM/SENNA 50/8.6MG TAB PO SCH (20:01)
[2018-10-24] MEDS: ATORVASTATIN 40 MG TAB PO SCH (20:02)
[2018-10-24] MEDS: PANTOprazole 40 MG TAB PO SCH (20:03)
[2018-10-24 22:47] LABS: Appearance Urine Clear (Clear); Bilirubin Urine Negative (Negative); Blood Urine Negative (Negative); Color Urine Yellow; Glucose Urine UA 1+ (Negative); Ketones Urine Negative (Negative); Leukocyte Esterase Urine Negative (Negative); Nitrite Urine Negative (Negative); Protein Urine Negative (Negative); Specific Gravity Urine 1.016 (1.000-1.030); Urobilinogen Urine Negative (Negative); pH Urine 5.5 (4.5-7.5)
[2018-10-25] MEDS: ALBUT/IPRATROP 3MG/0.5MG NEB 3 ML VIAL NEB PRN ×2 (02:38→15:37)
[2018-10-25] MEDS: ALBUTEROL HFA 8 GM INHALER INH SCH ×4 (04:54→22:01)
[2018-10-25 07:50] LABS: Hematocrit (blood only) 37.7 % (37-47); Mean Corpuscular Hgb Conc 31.8 g/dL (32-36); Mean Corpuscular Volume 88.7 fL (80-100); Mean Platelet Volume 12.3 fL (7.4-10.4); Platelet Count 143 K/uL (130-400); RDW Coefficient of Variation 14.1 % (11.5-14.5); RDW Standard Deviation 46.5 fL (36.4-46.3); Red Blood Count 4.25 M/uL (4.2-5.4); White Blood Count 9.67 K/uL (4.8-10.8)
[2018-10-25 08:24] LABS: BUN Creatinine Ratio 28.5 (10-20); Calcium 9.1 mg/dl (8.5-10.1); Creatinine Clr Calc Pharmacy 33.9 ml/min; Est GFR (Non-African American) 35.4; Magnesium 2.5 mg/dl (1.8-2.4); Potassium 4.9 mmol/L (3.5-5.1)
[2018-10-25] MEDS: CARVEDILOL 12.5 MG TAB PO SCH ×2 (08:48→21:53)
[2018-10-25] MEDS: INSULIN ASPART 100 UNITS/ML 3 ML PEN SC SCH ×4 (08:48→21:59)
[2018-10-25] MEDS: ASPIRIN 81 MG ECTAB PO SCH (08:49)
[2018-10-25] MEDS: HEPARIN SOD 5,000 UNIT/0.5 ML VIAL SQ SCH ×2 (08:50→22:02)
[2018-10-25] MEDS: POLYETHYLENE (MIRALAX) 17 GM PACK PO SCH ×2 (08:50→08:52)
[2018-10-25] MEDS: AMLODIPINE BESYLATE 5 MG TAB PO SCH (08:51)
[2018-10-25] MEDS: predniSONE 20 MG TAB PO SCH (08:52)
[2018-10-25] MEDS: BUDESONIDE/FORMOTEROL FUMARATE 160/4.5 60 PUFFS/INHALER INH SCH ×2 (08:53→21:57)
[2018-10-25] MEDS: DOCUSATE SODIUM/SENNA 50/8.6MG TAB PO SCH ×2 (08:53→21:52)
[2018-10-25] MEDS: TIOTROPIUM BROMIDE 5 PUFF/90 MCG INH INH SCH (08:54)
--- NOTE | 2018-10-25 14:24 | Hospitalist Progress Note ---
Date of Service October 25, 2018 Assessment & Plan (1) Acute on chronic respiratory failure with hypoxia and hypercapnia: Multifactorial - COPD exacerbation & acute/chronic CHF. Intubated at admission -- then extubated AM of 10/19. Transitioned to high-flow NC. - Received additional IV Lasix on 10/19 - Continue antibiotics, steroids, & nebs. - Now down to 3L NC. Still reports shortness of breath. -> Discussed with pulm. Started roflumilast on 10/25. - Worked well with PT/OT. Plan for rehab. (2) Acute on chronic combined systolic and diastolic CHF (congestive heart failure): Echo with EF 45-50% and grade 1 diastolic dysfunction. There are wall m otion abnormalities in the apex. - Continue beta-romulo. (3) COPD with exacerbation: From objective signs, she is improving, though she denies it. - Plan as above (4) Abnormal EKG: She has apical wall motion abnormality on echo. She reports several episodes of abdominal pain radiating to her back and her ear in the weeks leading up to this admission. Myocardial infarction type 2. - Cont beta-romulo & statin - Added ASA 81mg daily - Finished her heparin gtt on 10/22 for possible NSTEMI (5) Bilateral pneumonia: CXR on 10/18 was negative for infiltrates. Then, on 10/19, CXR and CT chest showed possible bibasilar infiltrates. - Was on levofloxacin - Started on 10/19; off by 10/20. (6) Hypertension: BP normal in the last 24 hours. - Continue home meds - Increased Coreg to 18.75mg BID. (7) Hyperlipidemia: Continue statin therapy. (8) Hyperglycemia: 2nd to steroids. A1c was 6.0% this admission. - Pharmacy to manage hyperglycemia per protocol. - Add basal insulin if necessary. (9) Chronic kidney disease, stage 3a: Appears to have CKD stage 3. Baseline Cr ~1.0 with eGFR ~50. - Monitored Cr - On 10/24, had kidney injur with Cr. up to 1.6. Improved on 1.45. (10) DVT prophylaxis: Heparin 5000 units Q12h Subjective Unchanged shortness of breath. Review of Systems Review of Systems: All systems reviewed & are unremarkable except as noted in HPI & below Physical Exam Constitutional: WD/WN, vitals as above Eyes: EOM intact bilaterally; no conjunctival abnormality ENMT: external ear and nose normal, oropharynx normal Neck: trachea midline, no thyromegaly normal visual inspection Respiratory: normal respiratory effort, lungs clear to auscultation no respiratory distress Auscultation: + diminished lung sounds Cardiovascular: RRR, no murmur, no edema Gastrointestinal (Abdomen): Inspection/Auscultation: abdomen normal to inspection; abdomen not distended Musculoskeletal: no cyanosis or clubbing, extremities motor strength 5/5 Skin: no rashes, warm and dry Neurologic: moves all extremities and awake Psychiatric: Orientation: alert, oriented to person and cooperative Results & Data Vital Signs (Past 12 Hours) Vital Signs Temp Pulse Resp BP BP Pulse Ox 10/25/18 12:50 75 95/47 L 10/25/18 11:16 36.7 C 80 18 85/59 L 98 10/25/18 07:09 36.6 C 70 20 124/72 98 10/25/18 04:36 36.3 C L 70 16 114/76 100 10/25/18 02:38 76 16 97 (1) Bilateral pneumonia Pneumonia type: due to unspecified organism Lung location: lower lobe of lung Qualified Code(s): J18.1 - Lobar pneumonia, unspecified organism (2) Hypertension Hypertension type: essential hypertension Qualified Code(s): I10 - Essential (primary) hypertension (3) Hyperlipidemia Hyperlipidemia type: mixed hyperlipidemia Qualified Code(s): E78.2 - Mixed hyperlipidemia
--- NOTE | 2018-10-25 15:10 | XRay Report ---
XR chest 2V routine CLINICAL HISTORY: Shortness of breath COMPARISON STUDY: 10/21/2018 FINDINGS: The heart is mildly enlarged. There is radiographic evidence of pulmonary emphysema. There is chronic blunting of the costophrenic angles. There is minor basilar atelectasis.[ IMPRESSION: Emphysema. Mild basilar atelectasis. No acute findings. Electronically signed by: Cheo Storey M.D. 10/25/2018 3:09 PM
[2018-10-25] MEDS: ROFLUMILAST 500 MCG TAB PO SCH (16:09)
[2018-10-25] MEDS: PANTOprazole 40 MG TAB PO SCH (21:52)
[2018-10-25] MEDS: ATORVASTATIN 40 MG TAB PO SCH (21:52)
[2018-10-26] MEDS: ALBUT/IPRATROP 3MG/0.5MG NEB 3 ML VIAL NEB PRN ×2 (03:20→16:16)
[2018-10-26] MEDS: ALBUTEROL HFA 8 GM INHALER INH SCH ×4 (04:43→21:17)
[2018-10-26] MEDS: AMLODIPINE BESYLATE 5 MG TAB PO SCH (07:55)
[2018-10-26] MEDS: ASPIRIN 81 MG ECTAB PO SCH (07:55)
[2018-10-26] MEDS: DOCUSATE SODIUM/SENNA 50/8.6MG TAB PO SCH ×2 (07:56→21:15)
[2018-10-26] MEDS: CARVEDILOL 12.5 MG TAB PO SCH ×2 (07:56→21:16)
[2018-10-26] MEDS: POLYETHYLENE (MIRALAX) 17 GM PACK PO SCH ×2 (07:57→07:58)
[2018-10-26] MEDS: ROFLUMILAST 500 MCG TAB PO SCH (07:57)
[2018-10-26] MEDS: TIOTROPIUM BROMIDE 5 PUFF/90 MCG INH INH SCH (07:58)
[2018-10-26] MEDS: BUDESONIDE/FORMOTEROL FUMARATE 160/4.5 60 PUFFS/INHALER INH SCH ×2 (07:58→21:15)
[2018-10-26] MEDS: HEPARIN SOD 5,000 UNIT/0.5 ML VIAL SQ SCH ×2 (08:02→21:10)
[2018-10-26] MEDS: INSULIN ASPART 100 UNITS/ML 3 ML PEN SC SCH ×4 (08:03→21:10)
[2018-10-26] MEDS ORDERED: predniSONE 10 MG TABLET PO SCH (09:00)
[2018-10-26 09:24] LABS: BUN Creatinine Ratio 31.7 (10-20); Calcium 9.1 mg/dl (8.5-10.1); Creatinine Clr Calc Pharmacy 37.2 ml/min; Est GFR (African American) 45.9; Est GFR (Non-African American) 39.6; Potassium 4.5 mmol/L (3.5-5.1)
--- NOTE | 2018-10-26 12:45 | Hospitalist Progress Note ---
Date of Service October 26, 2018 Assessment & Plan (1) Acute on chronic respiratory failure with hypoxia and hypercapnia: Multifactorial - COPD exacerbation & acute/chronic CHF. Intubated at admission -- then extubated AM of 10/19. Transitioned to high-flow NC. - Received additional IV Lasix on 10/19 - Continue antibiotics, steroids, & nebs. - Now down to 3L NC. Still reports shortness of breath. -> Discussed with pulm. Started roflumilast on 10/25. - Worked well with PT/OT. Plan for rehab. (2) Acute on chronic combined systolic and diastolic CHF (congestive heart failure): Echo with EF 45-50% and grade 1 diastolic dysfunction. There are wall m otion abnormalities in the apex. - Continue beta-romulo. (3) COPD with exacerbation: From objective signs, she is improving, though she denies it. - Plan as above (4) Abnormal EKG: She has apical wall motion abnormality on echo. She reports several episodes of abdominal pain radiating to her back and her ear in the weeks leading up to this admission. Myocardial infarction type 2. - Cont beta-romulo & statin - Added ASA 81mg daily - Finished her heparin gtt on 10/22 for possible NSTEMI (5) Bilateral pneumonia: CXR on 10/18 was negative for infiltrates. Then, on 10/19, CXR and CT chest showed possible bibasilar infiltrates. - Was on levofloxacin - Started on 10/19; off by 10/20. - On 10/25, procalcitonin and CXR were checked because she reported she was still short of breath. Both negative for pneumonia. (6) Hypertension: BP normal in the last 24 hours. - Increased Coreg to 18.75mg BID. - Holding her home triamterene-HCTZ for mild WILDER and appearing mildly hypovolemic. BP's have been normal off her diuretic. (7) Hyperlipidemia: Continue statin therapy. (8) Hyperglycemia: 2nd to steroids. A1c was 6.0% this admission. - Pharmacy to manage hyperglycemia per protocol. - Add basal insulin if necessary. (9) Chronic kidney disease, stage 3a: Appears to have CKD stage 3. Baseline Cr ~1.0 with eGFR ~50. - Monitored Cr - On 10/24, had kidney injury with Cr. up to 1.6. Improved to 1.3 by 10/26. Avoiding any further diuretic at this time. (10) DVT prophylaxis: Heparin 5000 units Q12h Subjective Still shortness of breath and nauseated. No change from yesterday per patient. Review of Systems Review of Systems: All systems reviewed & are unremarkable except as noted in HPI & below Physical Exam Constitutional: WD/WN, vitals as above Eyes: EOM intact bilaterally; no conjunctival abnormality ENMT: external ear and nose normal, oropharynx normal Neck: trachea midline, no thyromegaly normal visual inspection Respiratory: normal respiratory effort, lungs clear to auscultation no respiratory distress Auscultation: + diminished lung sounds Cardiovascular: RRR, no murmur, no edema Gastrointestinal (Abdomen): Inspection/Auscultation: abdomen normal to inspection; abdomen not distended Musculoskeletal: no cyanosis or clubbing, extremities motor strength 5/5 Skin: no rashes, warm and dry Neurologic: moves all extremities and awake Psychiatric: Orientation: alert, oriented to person and cooperative Results & Data Vital Signs (Past 12 Hours) Vital Signs Temp Pulse Pulse Resp BP Pulse Ox 10/26/18 07:47 36.6 C 74 18 123/65 100 10/26/18 03:20 75 16 98 (1) Bilateral pneumonia Pneumonia type: due to unspecified organism Lung location: lower lobe of lung Qualified Code(s): J18.1 - Lobar pneumonia, unspecified organism (2) Hypertension Hypertension type: essential hypertension Qualified Code(s): I10 - Essential (primary) hypertension (3) Hyperlipidemia Hyperlipidemia type: mixed hyperlipidemia Qualified Code(s): E78.2 - Mixed hyperlipidemia
[2018-10-26] MEDS ORDERED: BISACODYL 10 MG SUPP PR STA (16:15)
[2018-10-26] MEDS: PANTOprazole 40 MG TAB PO SCH (21:15)
[2018-10-26] MEDS: ATORVASTATIN 40 MG TAB PO SCH (21:17)
[2018-10-27] MEDS: ALBUTEROL HFA 8 GM INHALER INH SCH ×4 (05:03→21:35)
[2018-10-27] MEDS: INSULIN ASPART 100 UNITS/ML 3 ML PEN SC SCH ×4 (07:39→21:29)
[2018-10-27 08:02] LABS: Albumin Level 2.8 gm/dl (3.4-5.0); BUN Creatinine Ratio 30.5 (10-20); Calcium 9.1 mg/dl (8.5-10.1); Creatinine Clr Calc Pharmacy 38.3 ml/min; Est GFR (African American) 48.6; Est GFR (Non-African American) 41.9; Potassium 4.3 mmol/L (3.5-5.1)
[2018-10-27 08:06] LABS: Albumin Globulin Ratio 0.9 (0.9-2); Bilirubin,Total 0.6 mg/dl (0.2-1); Total Protein 5.8 gm/dl (6.4-8.2)
[2018-10-27] MEDS: DOCUSATE SODIUM/SENNA 50/8.6MG TAB PO SCH ×2 (08:12→21:23)
[2018-10-27] MEDS: ROFLUMILAST 500 MCG TAB PO SCH (08:12)
[2018-10-27] MEDS: CARVEDILOL 12.5 MG TAB PO SCH ×2 (08:13→21:24)
[2018-10-27] MEDS: AMLODIPINE BESYLATE 5 MG TAB PO SCH (08:13)
[2018-10-27] MEDS: BUDESONIDE/FORMOTEROL FUMARATE 160/4.5 60 PUFFS/INHALER INH SCH ×2 (08:14→21:34)
[2018-10-27] MEDS: ASPIRIN 81 MG ECTAB PO SCH (08:14)
[2018-10-27] MEDS: predniSONE 20 MG TAB PO SCH (08:14)
[2018-10-27] MEDS: POLYETHYLENE (MIRALAX) 17 GM PACK PO SCH ×2 (08:15→08:16)
[2018-10-27] MEDS: HEPARIN SOD 5,000 UNIT/0.5 ML VIAL SQ SCH ×2 (08:15→21:26)
[2018-10-27] MEDS: TIOTROPIUM BROMIDE 5 PUFF/90 MCG INH INH SCH (08:15)
[2018-10-27] MEDS: ALBUT/IPRATROP 3MG/0.5MG NEB 3 ML VIAL NEB PRN (09:54)
[2018-10-27] MEDS: ONDANSETRON INJ 2 MG/ML 2 ML VIAL IV PRN (10:23)
[2018-10-27 11:10] LABS: D Dimer 310 ug/L FEU (0-500)
--- NOTE | 2018-10-27 11:51 | Hospitalist Progress Note ---
Date of Service October 27, 2018 Assessment & Plan (1) Acute on chronic respiratory failure with hypoxia and hypercapnia: Multifactorial - COPD exacerbation & acute/chronic CHF. Intubated at admission -- then extubated AM of 10/19. Transitioned to high-flow NC. - Received additional IV Lasix on 10/19 - Continue antibiotics, steroids, & nebs. - Started roflumilast on 10/25. Will need 250mg x 1 month, then increase to 500mg. - As of 10/27, she still reports shortness of breath that is not improved from admission. Despite her assertion, she is back to her home 4L NC (or even better, down to 2L NC with good O2 sat) from having to be intubated at admission for respiratory failure. Repeat CXR, procalcitonin, BNP, and d-dimer are all normal/negative, so I do not believe an acute process is going on. I believe she is very deconditioned and needs pulmonary rehab. I discussed her case with Dr. Patten on 10/26, and he feels the same. I believe she can be discharged to rehab when ins. herrera is approved. I have spent time daily discussing her need for rehab with her, though I do not think she fully accepts that we cannot improve her breathing at this point with medications. - Taper steroids on discharge (presently on 20mg daily) (2) COPD with exacerbation: From objective signs, she is improving, though she denies it. - Plan as above (3) Abnormal EKG: She had apical wall motion abnormality on echo. She reports several episodes of abdominal pain radiating to her back and her ear in the weeks leading up to this admission. Myocardial infarction type 2. - Cont beta-romulo & statin - Added ASA 81mg daily - Finished her heparin gtt on 10/22 for possible NSTEMI - Cardiology not convinced this was ever an acute ischemic event, but we treated it as such due to the equivocal decision. (4) Acute on chronic combined systolic and diastolic CHF (congestive heart failure): Echo with EF 45-50% and grade 1 diastolic dysfunction. There were wall mo tion abnormalities in the apex. - Continue beta-romulo. (5) Chronic kidney disease, stage 3a: Appears to have CKD stage 3. Baseline Cr ~1.0 with eGFR ~50. - Monitored Cr - On 10/24, had kidney injury with Cr. up to 1.6. Improved to 1.2 by 10/27. Avoiding any further diuretic at this time. (6) Hypertension: BP normal in the last 24 hours. - Increased Coreg to 18.75mg BID. - Holding her home triamterene-HCTZ for mild WILDER and appearing mildly hypovolemic. BP's have been normal off her diuretic. (7) Bilateral pneumonia: CXR on 10/18 was negative for infiltrates. Then, on 10/19, CXR and CT chest showed possible bibasilar infiltrates. - Was on levofloxacin - Started on 10/19; off by 10/20. - On 10/25, procalcitonin and CXR were checked because she reported she was still short of breath. Both negative for pneumonia. (8) Hyperlipidemia: Continue statin therapy. (9) Hyperglycemia: 2nd to steroids. A1c was 6.0% this admission. - Pharmacy to manage hyperglycemia per protocol. - Add basal insulin if necessary. (10) DVT prophylaxis: Heparin 5000 units Q12h Subjective Still short of breath and with nausea. Review of Systems Review of Systems: All systems reviewed & are unremarkable except as noted in HPI & below Physical Exam Constitutional: WD/WN, vitals as above Eyes: EOM intact bilaterally; no conjunctival abnormality ENMT: external ear and nose normal, oropharynx normal Neck: trachea midline, no thyromegaly normal visual inspection Respiratory: normal respiratory effort, lungs clear to auscultation no respiratory distress Auscultation: + diminished lung sounds Cardiovascular: RRR, no murmur, no edema Gastrointestinal (Abdomen): Inspection/Auscultation: abdomen normal to inspection; abdomen not distended Musculoskeletal: no cyanosis or clubbing, extremities motor strength 5/5 Skin: no rashes, warm and dry Neurologic: moves all extremities and awake Psychiatric: Orientation: alert, oriented to person and cooperative Results & Data Vital Signs (Past 12 Hours) Vital Signs Temp Pulse Pulse Resp BP Pulse Ox 10/27/18 09:56 68 18 98 10/27/18 08:09 36.5 C 63 19 122/77 95 (1) Hyperlipidemia Hyperlipidemia type: mixed hyperlipidemia Qualified Code(s): E78.2 - Mixed hyperlipidemia (2) Bilateral pneumonia Lung location: lower lobe of lung Pneumonia type: due to unspecified organism Qualified Code(s): J18.1 - Lobar pneumonia, unspecified organism (3) Hypertension Hypertension type: essential hypertension Qualified Code(s): I10 - Essential (primary) hypertension
[2018-10-27] MEDS: ATORVASTATIN 40 MG TAB PO SCH (21:24)
[2018-10-27] MEDS: PANTOprazole 40 MG TAB PO SCH (21:24)
[2018-10-27] MEDS: ACETAMINOPHEN 325 MG TAB PO PRN (21:25)
[2018-10-28] MEDS: ACETAMINOPHEN 325 MG TAB PO PRN (04:03)
[2018-10-28] MEDS: ALBUTEROL HFA 8 GM INHALER INH SCH ×3 (04:03→17:16)
[2018-10-28] MEDS: HEPARIN SOD 5,000 UNIT/0.5 ML VIAL SQ SCH ×2 (07:50→21:07)
[2018-10-28] MEDS: ASPIRIN 81 MG ECTAB PO SCH (07:50)
[2018-10-28] MEDS: AMLODIPINE BESYLATE 5 MG TAB PO SCH (07:50)
[2018-10-28] MEDS: predniSONE 20 MG TAB PO SCH (07:50)
[2018-10-28 07:51] LABS: Hematocrit (blood only) 36.2 % (37-47); Hemoglobin 11.3 g/dL (12.0-16.0); Mean Corpuscular Hgb Conc 31.2 g/dL (32-36); Platelet Count 143 K/uL (130-400); RDW Coefficient of Variation 14.2 % (11.5-14.5); RDW Standard Deviation 47.6 fL (36.4-46.3); Red Blood Count 3.98 M/uL (4.2-5.4); White Blood Count 8.21 K/uL (4.8-10.8)
[2018-10-28] MEDS: TIOTROPIUM BROMIDE 5 PUFF/90 MCG INH INH SCH (07:51)
[2018-10-28] MEDS: BUDESONIDE/FORMOTEROL FUMARATE 160/4.5 60 PUFFS/INHALER INH SCH ×2 (07:51→21:07)
[2018-10-28] MEDS: DOCUSATE SODIUM/SENNA 50/8.6MG TAB PO SCH ×2 (07:51→21:10)
[2018-10-28] MEDS: POLYETHYLENE (MIRALAX) 17 GM PACK PO SCH ×2 (07:52)
[2018-10-28] MEDS: ROFLUMILAST 500 MCG TAB PO SCH (07:53)
[2018-10-28] MEDS: CARVEDILOL 12.5 MG TAB PO SCH ×2 (07:54→21:06)
[2018-10-28] MEDS: INSULIN ASPART 100 UNITS/ML 3 ML PEN SC SCH ×4 (07:54→21:09)
[2018-10-28 08:15] LABS: BUN Creatinine Ratio 28.6 (10-20); Calcium 8.8 mg/dl (8.5-10.1); Creatinine Clr Calc Pharmacy 44.8 ml/min; Est GFR (African American) 57.3; Est GFR (Non-African American) 49.4; Potassium 4.2 mmol/L (3.5-5.1)
--- NOTE | 2018-10-28 09:42 | XRay Report ---
XR chest 2V routine HISTORY: 72 years-old Female acute/chronic resp failure acute on chronic respiratory failure COMPARISON: Chest radiographs 10/25/[address] 10/19/2018 TECHNIQUE: PA and lateral views of the chest FINDINGS: Cardiomediastinal and hilar silhouettes are unchanged. Calcification of the thoracic aortic arch. Sev ere emphysema with chronic interstitial coarsening. Lungs are hyperinflated with chronic blunting of the costophrenic angles. No pneumothorax, large pleural effusion, overt pulmonary edema or lobar airs pace consolidation. Degenerative changes of the shoulders and spine. IMPRESSION: Emphysema without acute process. The above report was generated using voice recognition software. It may contain grammatical, syntax o r spelling errors. Electronically signed by: Otto Altman M.D. 10/28/2018 9:40 AM
[2018-10-28] MEDS: ALBUT/IPRATROP 3MG/0.5MG NEB 3 ML VIAL NEB PRN (09:54)
[2018-10-28] MEDS: ALBUT/IPRATROP 3MG/0.5MG NEB 3 ML VIAL NEB SCH ×2 (19:35→23:56)
[2018-10-28] MEDS: ACETYLCYSTEINE 20% INHAL SOLN ***DISPENSED BY RESP. INH SCH (19:35)
--- NOTE | 2018-10-28 20:28 | Hospitalist Progress Note ---
Date of Service October 28, 2018 Assessment & Plan (1) Acute on chronic respiratory failure with hypoxia and hypercapnia: acute component - multifactorial - COPD exacerbation, b/l pneumonia, and acute/chronic CHF. intubated at admission -- then extubated AM of 10/19. required high-flow NC for some time then transitioned to NC O2. prolonged hospital stay because of COPD exacerbation. see below. is back to her normal home O2 amount however. Present on Admission?: Yes (2) Acute on chronic combined systolic and diastolic CHF (congestive heart failure): ECHO with EF 45-50% and grade 1 diastolic dysfunction. There were wall motion abnormalities in the apex. EKG with anterolateral T wave inversions. Seen by cardiology - will need outpatient f/u for this. From volume standpoint appears compensated. Cont BB. Will need low-dose JAVAD. (3) COPD with exacerbation: Ongoing. Very poor air movement on exam. CXR today w/o infiltrates or edema. Change albuterol MDI back to nebs q4h. Add mucomyst TID x 2 days -- would d/c if she sees no benefit. Incentive cecil. Flutter valve. Cont symbicort. Cont daliresp. Cont spiriva. Cont prednisone. Add mucinex 1200mg BID. (4) Abnormal EKG: anterior T wave inversions. she has apical wall motion abnormality on echo. she reports several episodes of abdominal pain radiating to her back and her ear in the weeks leading up to this admission. these episodes may be anginal equivalent. too sick for additional work-up while here due to respiratory issues. Cont BB. Cont statin. Cont asa 81mg daily. will need f/u with cardiology after d/c. (5) Elevated troponin: likely myocardial demand ischemia in setting of respiratory failure. (6) Bilateral pneumonia: completed course of IV/PO abx. cxr w/o infiltrates at this time. (7) Hypertension: Continue home meds Needs low-dose JAVAD or ARB due to LV dysfunction (8) Hyperlipidemia: Continue statin therapy. (9) Hyperglycemia: pre-DM a1c 6% novolog sliding scale sugars still high add lantus low-dose 10 units qam (10) Chronic kidney disease, stage 3a: Cr stable (11) Dysphagia: s/p speech eval appreciate recs including soft bite-sized food will need GI eval post-discharge as recommended by speech no thrush on exam today (12) GERD (gastroesophageal reflux disease): some symptoms despite PPI add carafate qid (13) DVT prophylaxis: heparin q12h PT, OT needs placement for rehab Subjective pt still c/o dyspnea. states "I don't feel any different than when I came here." feels like there is mucous in lungs and can't get it up as much as she would like. gets dyspneic with minimal activity per staff. when she does have mucous production there it is thick. poor appetite. reports some dysphagia - things get "stuck" - back of throat. has some heartburn at times. Review of Systems Constitutional: no fever Respiratory: + cough, + chest congestion, + dyspnea, + dyspnea on exertion, + sputum production and + wheezing Cardiovascular: + paroxysmal nocturnal dyspnea; no chest pain Gastrointestinal: no abdominal pain, no nausea and no vomiting Physical Exam Constitutional: + ill appearing; no acute distress and no altered mental status kyphotic ENMT: external ear and nose normal, oropharynx normal Respiratory: no respiratory distress Auscultation: + diminished lung sounds (severe, with poor air movement) and + wheezes (minimal as her airation is quite poor); no rales Cardiovascular: Rate/Rhythm: regular rate and regular rhythm Heart Sounds: normal S1 and normal S2; no murmur Vessels: posterior tibial pulses present and dorsalis pedis pulses present Extremities: no edema Gastrointestinal (Abdomen): normal bowel sounds, soft, nontender, no hepatosplenomegaly Psychiatric: Orientation: alert and oriented x 3 Results & Data Vital Signs (Past 12 Hours) Vital Signs Temp Pulse Pulse Resp BP Pulse Ox 10/28/18 15:37 36.9 C 76 16 134/73 95 10/28/18 09:54 88 96 Laboratory Results Laboratory Results - last 24 hr 10/28/18 10/28/18 10/28/18 07:15 07:15 07:15 WBC 8.21 RBC 3.98 L Hgb 11.3 L Hct 36.2 L MCV 91.0 MCH 28.4 MCHC 31.2 L RDW Std Deviation 47.6 H RDW Coeff of Michelle 14.2 Plt Count 143 MPV 12.0 H Sodium 140 Potassium 4.2 Chloride 99 Carbon Dioxide 40 H Anion Gap 1.0 L BUN 32 H Creatinine 1.10 Est Cr Clr Drug Dosing 44.8 Est GFR ( Amer) 57.3 Est GFR (Non-Af Amer) 49.4 BUN/Creatinine Ratio 28.6 H Glucose 85 POC Glucose Calcium 8.8 TSH 0.509 10/28/18 10/28/18 10/28/18 07:40 11:22 16:55 WBC RBC Hgb Hct MCV MCH MCHC RDW Std Deviation RDW Coeff of Michelle Plt Count MPV Sodium Potassium Chloride Carbon Dioxide Anion Gap BUN Creatinine Est Cr Clr Drug Dosing Est GFR ( Amer) Est GFR (Non-Af Amer) BUN/Creatinine Ratio Glucose POC Glucose 88 215 H 215 H Calcium TSH (1) Hyperlipidemia Hyperlipidemia type: mixed hyperlipidemia Qualified Code(s): E78.2 - Mixed hyperlipidemia (2) Bilateral pneumonia Lung location: lower lobe of lung Pneumonia type: due to unspecified organism Qualified Code(s): J18.1 - Lobar pneumonia, unspecified organism (3) Hypertension Hypertension type: essential hypertension Qualified Code(s): I10 - Essential (primary) hypertension (4) Dysphagia Dysphagia type: unspecified Qualified Code(s): R13.10 - Dysphagia, unspecifie d (5) GERD (gastroesophageal reflux disease) Esophagitis presence: esophagitis presence not specified Qualified Code(s): K21.9 - Gastro-esophageal reflux disease without esophagitis
[2018-10-28] MEDS: SUCRALFATE 1 GM/10 ML UDC PO SCH (21:06)
[2018-10-28] MEDS: ATORVASTATIN 40 MG TAB PO SCH (21:06)
[2018-10-28] MEDS: PANTOprazole 40 MG TAB PO SCH (21:06)
[2018-10-29] MEDS: ALBUT/IPRATROP 3MG/0.5MG NEB 3 ML VIAL NEB SCH ×6 (03:52→23:08)
[2018-10-29] MEDS: ONDANSETRON INJ 2 MG/ML 2 ML VIAL IV PRN (04:18)
[2018-10-29] MEDS: ACETYLCYSTEINE 20% INHAL SOLN ***DISPENSED BY RESP. INH SCH ×3 (07:26→23:08)
[2018-10-29] MEDS: ROFLUMILAST 500 MCG TAB PO SCH (08:48)
[2018-10-29] MEDS: SUCRALFATE 1 GM/10 ML UDC PO SCH ×4 (08:48→20:30)
[2018-10-29] MEDS: POLYETHYLENE (MIRALAX) 17 GM PACK PO SCH ×2 (08:49→08:50)
[2018-10-29] MEDS: ASPIRIN 81 MG ECTAB PO SCH ×2 (08:49→20:35)
[2018-10-29] MEDS: INSULIN ASPART 100 UNITS/ML 3 ML PEN SC SCH ×4 (08:50→20:57)
[2018-10-29] MEDS: CARVEDILOL 12.5 MG TAB PO SCH ×2 (08:50→20:39)
[2018-10-29] MEDS: predniSONE 20 MG TAB PO SCH (08:52)
[2018-10-29] MEDS: AMLODIPINE BESYLATE 5 MG TAB PO SCH (08:52)
[2018-10-29] MEDS: BUDESONIDE/FORMOTEROL FUMARATE 160/4.5 60 PUFFS/INHALER INH SCH ×2 (08:53→20:32)
[2018-10-29] MEDS: HEPARIN SOD 5,000 UNIT/0.5 ML VIAL SQ SCH ×2 (08:58→20:56)
[2018-10-29] MEDS: TIOTROPIUM BROMIDE 5 PUFF/90 MCG INH INH SCH (09:17)
[2018-10-29] MEDS: DOCUSATE SODIUM/SENNA 50/8.6MG TAB PO SCH ×2 (09:17→20:58)
[2018-10-29] MEDS: guaiFENesin 600 MG TABCR PO SCH ×2 (09:17→20:41)
[2018-10-29] MEDS ORDERED: INSULIN GLARGINE SOLOSTAR 100 UNITS/ML 3 ML PEN SC SCH (11:15)
[2018-10-29] MEDS: methylPREDNISolone 40 MG in SYRINGE 0 ML IV SCH ×2 (14:26→22:39)
[2018-10-29 16:20] LABS: HCO3 ABG 36 mmol/L (19-24); Oxygen Saturation ABG 97.4 % (90-95); PCO2 ABG 65 mmHg (35-46); PO2 ABG 103 mm/Hg (80-95); pH ABG 7.36 (7.35-7.45)
[2018-10-29 16:33] LABS: Allen Test Pos (Pos)
--- NOTE | 2018-10-29 19:58 | Hospitalist Progress Note ---
Date of Service October 29, 2018 Assessment & Plan (1) Acute on chronic respiratory failure with hypoxia and hypercapnia: acute component - multifactorial - COPD exacerbation, b/l pneumonia, and acute/chronic CHF. latter 2 issues resolved. still w/ ongoing COPD issues. intubated at admission -- then extubated AM of 10/19. required high-flow NC for some time then transitioned to NC O2. prolonged hospital stay because of COPD exacerbation. see below. is back to her normal home O2 amount however. (2) Acute on chronic combined systolic and diastolic CHF (congestive heart failure): ECHO with EF 45-50% and grade 1 diastolic dysfunction. There were wall motion abnormalities in the apex. EKG with anterolateral T wave inversions. Seen by cardiology - will need outpatient f/u for this. Compensated. Cont BB. Will need low-dose JAVAD. (3) COPD with exacerbation: Ongoing despite maximal medical efforts. hold PO prednisone. place back on solumedrol 40mg q12h IV. I have asked Dr Vargas to see in consult for any other recommendations. stop percussion vest - pt doesn't like it and it didn't help her mobilize any secretions/sputum. CXR yesterday w/o infiltrates or edema. Cont nebs q4h. Cont mucomyst TID x 2 days. Incentive cecil. Flutter valve. Cont symbicort. Cont daliresp. Cont spiriva. Cont mucinex 1200mg BID. appreciate any recs from Dr Vargas. (4) Abnormal EKG: anterior T wave inversions. she has apical wall motion abnormality on echo. she reports several episodes of abdominal pain radiating to her back and her ear in the weeks leading up to this admission. these episodes may be anginal equivalent. too sick for additional work-up while here due to respiratory issues. Cont BB. Cont statin. Cont asa 81mg daily. will need f/u with cardiology after d/c. (5) Elevated troponin: likely myocardial demand ischemia in setting of respiratory failure. (6) Bilateral pneumonia: completed course of IV/PO abx. cxr w/o infiltrates at this time. (7) Hypertension: Continue home meds Needs low-dose JAVAD or ARB due to LV dysfunction (8) Hyperlipidemia: Continue statin therapy. (9) Hyperglycemia: pre-DM a1c 6% novolog sliding scale will likely need higher doses of lantus and novolog with increased steroids (10) Chronic kidney disease, stage 3a: Cr stable (11) Dysphagia: s/p speech eval appreciate recs including soft bite-sized food will need GI eval post-discharge as recommended by speech (12) GERD (gastroesophageal reflux disease): PPI + carafate qid (13) DVT prophylaxis: heparin q12h PT, OT needs placement for rehab left message for on voicemail 10/29/18 Subjective like yesterday's visit the pt states "I don't feel any different - I'm still short of breath" nurses report dyspnea w/ minimal activity despite mucomyst nebs and chest percussion vest she feels no different and has not produced any sputum with such she does not want to continue the vibration vest because if "gave me a headache" still c/o anorexia Review of Systems Constitutional: no fever Respiratory: + cough, + chest congestion, + dyspnea and + dyspnea on exertion; no hemoptysis, no pain on inspiration and no sputum production Cardiovascular: no chest pain Gastrointestinal: no abdominal pain Physical Exam Constitutional: + ill appearing; no acute distress and no altered mental status ENMT: external ear and nose normal, oropharynx normal Respiratory: no respiratory distress Auscultation: + diminished lung sounds (severe, with poor air movement) and + wheezes (minimal as her airation is quite poor); no rales no changes from yesterday's exam Cardiovascular: Rate/Rhythm: regular rate and regular rhythm Heart Sounds: normal S1 and normal S2; no murmur Vessels: posterior tibial pulses present and dorsalis pedis pulses present Extremities: no edema Gastrointestinal (Abdomen): normal bowel sounds, soft, nontender, no hepatosplenomegaly Psychiatric: Orientation: alert and oriented x 3 Results & Data Vital Signs (Past 12 Hours) Vital Signs Temp Pulse Resp BP Pulse Ox Pulse Ox 10/29/18 19:05 97 10/29/18 18:24 89 18 96 10/29/18 15:37 36.5 C 77 19 116/70 100 10/29/18 15:20 77 18 96 10/29/18 11:41 72 16 98 Laboratory Results Laboratory Results - last 24 hr 10/28/18 10/29/18 10/29/18 20:38 08:04 11:57 ABG pH ABG pCO2 ABG pO2 ABG HCO3 ABG O2 Saturation ABG Base Excess Dao Test Barometric Pressure Oxygen Given POC Glucose 202 H 109 H 180 H 10/29/18 10/29/18 15:55 17:30 ABG pH 7.36 ABG pCO2 65 H ABG pO2 103 H ABG HCO3 36 H ABG O2 Saturation 97.4 H ABG Base Excess 8.4 H Dao Test Pos Barometric Pressure 732.2 Oxygen Given 4L POC Glucose 197 H (1) Dysphagia Dysphagia type: unspecified Qualified Code(s): R13.10 - Dysphagia, unspecified (2) Hyperlipidemia Hyperlipidemia type: mixed hyperlipidemia Qualified Code(s): E78.2 - Mixed hyperlipidemia (3) Bilateral pneumonia Lung location: lower lobe of lung Pneumonia type: due to unspecified organism Qualified Code(s): J18.1 - Lobar pneumonia, unspecified organism (4) GERD (gastroesophageal reflux disease) Esophagitis presence: esophagitis presence not specified Qualified Code(s): K21.9 - Gastro-esophageal reflux disease without esophagitis (5) Hypertension Hypertension type: essential hypertension Qualified Code(s): I10 - Essential (primary) hypertension
[2018-10-29] MEDS: ATORVASTATIN 40 MG TAB PO SCH (20:37)
[2018-10-29] MEDS: PANTOprazole 40 MG TAB PO SCH (20:41)
--- NOTE | 2018-10-30 00:27 | Consultation Report ---
0DATE OF CONSULTATION: 10/29/2018 REASON FOR CONSULTATION: Acute hypoxic and hypercarbic respiratory failure and severe chronic obstructive pulmonary disease. HISTORY OF PRESENT ILLNESS: This patient is a 72-year-old white female who was seen in consultation both fixed income trading vice president and tmr teacher by Dr. Patten on 10/19/2018 for acute hypercarbic respiratory failure requiring mechanical ventilator assistance. Echocardiogram at that time showed grade 1 diastolic dysfunction and the patient had a longstanding smoking history with severe chronic obstructive pulmonary disease. She was extubated within 24-48 hours and placed on oral steroid therapy and continued on levofloxacin. The patient was alert and was able to be extubated without difficulty. She has a history of chronic obstructive pulmonary disease, hypertension, diastolic congestive heart failure and a history of multiple pulmonary emboli with apparently previous history of respiratory failure. She was seen in the Emergency Room and emergently intubated. She also was treated for grade 1 diastolic heart failure. She has diabetes mellitus type 2. She was seen by Dr. Bolaños in cardiology, felt that the elevated troponins may have been associated with no wall motion abnormality and possible acute cardiac event. The findings were nonfocal, but general showing hypokinesis. We found it difficult to assess the patient's cardiac status with her presenting with acute on chronic respiratory failure with hypoxia and hypercapnia. She is currently O2 dependent. I was asked to see the patient today by Dr. Vega because following her bout in the Intensive Care Unit and transfer to the third floor, she has been virtually bedridden, unable to expectorate or clear her lungs and remains quite despondent over her clinical course. CURRENT VITAL SIGNS: Blood pressure 131/78, pulse 72 and regular, respiratory rate 16, temperature 36.4 and O2 sat 98% on 4 liters. Mucomyst t.i.d. has been ordered to her regimen that includes Symbicort, Daliresp, Spiriva and prednisone along with Mucinex. She continues with chronic electrocardiogram changes as well and the troponin elevation was felt to be secondary to demand ischemia in the setting of respiratory failure. Current imaging shows a chest x-ray with emphysema without acute process. Review of the CT scan of the chest on admission showed bibasilar parenchymal atelectasis with emphysema. White count is normal. H and H of 11.3 and 36.2. Most recent ABGs on 10/20/2018 pH 7.39, pCO2 of 53 and pO2 of 91 on 45% high flow O2. PHYSICAL EXAMINATION: GENERAL: This is a well-developed, well-nourished white female, appearing disheveled and mildly tachypneic at rest, but despondent, blood pressure 131/78, pulse 72 and regular, respiratory rate 16, temperature 36.4 and O2 sat 98% on 4 liters. SKIN: Without lesion. HEENT: Atraumatic and normocephalic. PERRLA. LUNGS: Distant P and A with scattered wheeze and marked hyperresonance. CARDIAC: Regular rate and rhythm. I do not appreciate a gallop. ABDOMEN: Soft and protuberant. EXTREMITIES: Trace pedal edema. No clubbing or peripheral cyanosis. NEUROLOGIC: Intact. LABORATORY DATA: As noted. Chest x-ray as noted. OVERALL ASSESSMENT: This patient is a 72-year-old female with severe oxygen dependent and steroid dependent chronic obstructive pulmonary disease with acute respiratory failure following chronic obstructive pulmonary disease exacerbation. The patient has been on vigorous pulmonary toilet that includes aerosolized bronchodilator, I.V. Solu-Medrol, Mucomyst and other attempts to improve the patient's mucociliary elevator. I have been asked to see the patient in consultation to offer any suggestions and to consider bronchoscopy with BAL. It is not clear to me whether the patient tolerated the procedure without precipitating ensuing acute respiratory failure, but certainly if this would help the patient, we can consider this approach. We will discuss further with Dr. Vega. [facility]ITAL[facility]
[2018-10-30] MEDS: ALBUT/IPRATROP 3MG/0.5MG NEB 3 ML VIAL NEB SCH ×6 (04:20→23:05)
[2018-10-30] MEDS: HEPARIN SOD 5,000 UNIT/0.5 ML VIAL SQ SCH ×2 (09:30→21:55)
[2018-10-30] MEDS: AMLODIPINE BESYLATE 5 MG TAB PO SCH (09:30)
[2018-10-30] MEDS: ASPIRIN 81 MG ECTAB PO SCH (09:30)
[2018-10-30] MEDS: CARVEDILOL 12.5 MG TAB PO SCH ×2 (09:31→21:50)
[2018-10-30] MEDS: guaiFENesin 600 MG TABCR PO SCH ×2 (09:31→21:47)
[2018-10-30] MEDS: TIOTROPIUM BROMIDE 5 PUFF/90 MCG INH INH SCH (09:32)
[2018-10-30] MEDS: ROFLUMILAST 500 MCG TAB PO SCH (09:32)
[2018-10-30] MEDS: INSULIN GLARGINE SOLOSTAR 100 UNITS/ML 3 ML PEN SC SCH (09:33)
[2018-10-30] MEDS: SUCRALFATE 1 GM/10 ML UDC PO SCH ×4 (09:33→20:30)
[2018-10-30] MEDS: BUDESONIDE/FORMOTEROL FUMARATE 160/4.5 60 PUFFS/INHALER INH SCH ×2 (09:35→21:50)
[2018-10-30] MEDS: DOCUSATE SODIUM/SENNA 50/8.6MG TAB PO SCH ×2 (09:35→22:37)
[2018-10-30] MEDS: POLYETHYLENE (MIRALAX) 17 GM PACK PO SCH (09:36)
[2018-10-30] MEDS: INSULIN ASPART 100 UNITS/ML 3 ML PEN SC SCH ×4 (09:37→21:52)
[2018-10-30] MEDS: methylPREDNISolone 40 MG in SYRINGE 0 ML IV SCH ×2 (09:45→21:49)
--- NOTE | 2018-10-30 20:19 | Hospitalist Progress Note ---
Date of Service October 30, 2018 Assessment & Plan (1) Dysphagia: s/p speech eval appreciate recs including soft bite-sized food she continues to c/o this and blames lack of oral intake on it. poor candidate for EGD right now due to respiratory issues. plan - * barium swallow/upper GI series in am * increase PPI to BID dosing in the event GERD playing a role * cont carate qid need for video swallow? will d/w speech (2) Acute on chronic respiratory failure with hypoxia and hypercapnia: acute component - multifactorial - COPD exacerbation, b/l pneumonia, and acute/chronic CHF. latter 2 issues resolved. still w/ ongoing COPD issues. intubated at admission -- then extubated AM of 10/19. required high-flow NC for some time then transitioned to NC O2. prolonged hospital stay because of COPD exacerbation. see below. is back to her normal home O2 amount however. (3) Acute on chronic combined systolic and diastolic CHF (congestive heart failure): ECHO with EF 45-50% and grade 1 diastolic dysfunction. There were wall motion abnormalities in the apex. EKG with anterolateral T wave inversions. Seen by cardiology - will need outpatient f/u for this. Compensated. Cont BB. Needs low-dose JAVAD. (4) COPD with exacerbation: Ongoing despite maximal medical efforts. hold PO prednisone. placed back on solumedrol 40mg q12h IV on 10/29/18 and I do believe this has helped pulmonary symptoms and her exam. NO wean on IV steroids today. I have asked Dr Vargas to see in consult for any other recommendations. stop percussion vest - pt doesn't like it and it didn't help her mobilize any secretions/sputum. Most recent cxr w/o infiltrates or edema. Cont nebs q4h. Finish mucomyst TID x 2 days. Incentive cecil. Flutter valve. Cont symbicort. Cont daliresp. Cont spiriva. Cont mucinex 1200mg BID. appreciate any additional recs from Dr Vargas. (5) Abnormal EKG: anterior T wave inversions. she has apical wall motion abnormality on echo. she reports several episodes of abdominal pain radiating to her back and her ear in the weeks leading up to this admission. these episodes may be anginal equivalent. too sick for additional work-up while here due to respiratory issues. Cont BB. Cont statin. Cont asa 81mg daily. will need f/u with cardiology after d/c. (6) Elevated troponin: likely myocardial demand ischemia in setting of respiratory failure. (7) Bilateral pneumonia: completed course of IV/PO abx. cxr w/o infiltrates at this time. (8) Hypertension: Continue home meds Needs low-dose JAVAD or ARB due to LV dysfunction (9) Hyperlipidemia: Continue statin therapy. (10) Hyperglycemia: pre-DM a1c 6% uncontrolled due to IV steroids increase lantus to 15 units increase novolog correction and carb ratio (11) Chronic kidney disease, stage 3a: Cr stable (12) GERD (gastroesophageal reflux disease): PPI + carafate qid see 'dysphagia' above (13) DVT prophylaxis: heparin q12h PT, OT needs placement for rehab left message for on voicemail 10/29/18 I have never seen the gentleman at bedside nor have staff Subjective like all other days again reports NO improvement in pulmonary symptoms. however -- today her largest complaint is her throat. states "I can't swallow" -- and she points to her throat. "everything gets stuck." she blames her inability to eat on this. ?anorexia in addition to functional issues. symptoms present for 2 years or longer. "I went to see a doctor about it and they didn't do anything." has had upper Gi and EGD in past - results uncertain. staff reporting ORTEGA w/ minimal activity. no family at bedside today at all per staff. Review of Systems Constitutional: + anorexia; no fever and no chills Ear, Nose, Mouth, Throat: + dysphagia Respiratory: + cough; no hemoptysis and no sputum production Cardiovascular: no chest pain, no orthopnea and no paroxysmal nocturnal dyspnea Gastrointestinal: no abdominal pain, no nausea and no vomiting Physical Exam Constitutional: + ill appearing; no acute distress and no altered mental status ENMT: external ear and nose normal, oropharynx normal (no thrush seen) Respiratory: no respiratory distress Auscultation: + diminished lung sounds (although air movement IS BETTER TODAY in comparison to 10/29/18) and + wheezes (minimal/scant); no rales Cardiovascular: Rate/Rhythm: regular rate and regular rhythm Heart Sounds: normal S1 and normal S2; no murmur Vessels: posterior tibial pulses present and dorsalis pedis pulses present Extremities: no edema Gastrointestinal (Abdomen): normal bowel sounds, soft, nontender, no hepatosplenomegaly Psychiatric: Orientation: alert and oriented x 3 Results & Data Vital Signs (Past 12 Hours) Vital Signs Temp Pulse Resp BP BP Pulse Ox 10/30/18 19:55 78 20 94 10/30/18 16:02 36.9 C 80 16 126/72 100 10/30/18 14:59 79 18 92 10/30/18 12:12 78 18 111/76 98 10/30/18 10:59 95 H 22 93 Laboratory Results Laboratory Results - last 24 hr 10/29/18 10/29/18 10/30/18 20:35 20:39 08:04 POC Glucose 339 H* 308 H* 162 H 10/30/18 10/30/18 12:11 17:15 POC Glucose 236 H 126 H (1) Dysphagia Dysphagia type: unspecified Qualified Code(s): R13.10 - Dysphagia, unspecified (2) Hyperlipidemia Hyperlipidemia type: mixed hyperlipidemia Qualified Code(s): E78.2 - Mixed hyperlipidemia (3) Bilateral pneumonia Lung location: lower lobe of lung Pneumonia type: due to unspecified organism Qualified Code(s): J18.1 - Lobar pneumonia, unspecified organism (4) GERD (gastroesophageal reflux disease) Esophagitis presence: esophagitis presence not specified Qualified Code(s): K21.9 - Gastro-esophageal reflux disease without esophagitis (5) Hypertension Hypertension type: essential hypertension Qualified Code(s): I10 - Essential (primary) hypertension
[2018-10-30] MEDS: ATORVASTATIN 40 MG TAB PO SCH (21:49)
[2018-10-30] MEDS: PANTOprazole 40 MG TAB PO SCH (21:52)
[2018-10-31] MEDS: ALBUT/IPRATROP 3MG/0.5MG NEB 3 ML VIAL NEB SCH ×5 (03:39→20:11)
[2018-10-31] MEDS ORDERED: Nursing to Pharmacy Communication ONE ×2 (07:27→21:08)
--- NOTE | 2018-10-31 09:03 | Fluoroscopy Report ---
FL barium swallow CLINICAL HISTORY: dysphagia, severe reflux disease, anorexia COMPARISON STUDY: None. FLUOROSCOPY TIME: 0.8 minutes. FLUOROSCOPIC IMAGES: 22. FINDINGS: Mucosal detail is diminished on this exam. Penetration was noted with possible trace trache al aspiration. No esophageal mass or stricture was identified. Reflux cannot be assessed for on this exam. No hiatal hernia was identified. There is mild esophageal dysmotility. IMPRESSION: 1. Technically difficult exam but no esophageal mass or stricture identified. 2. Penetration with suspected trace tracheal aspiration. 3. Mild esophageal dysmotility. Electronically signed by: Ozzy Cobian M.D. 10/31/2018 9:02 AM
[2018-10-31] MEDS: INSULIN ASPART 100 UNITS/ML 3 ML PEN SC SCH ×4 (10:02→21:49)
[2018-10-31] MEDS: HEPARIN SOD 5,000 UNIT/0.5 ML VIAL SQ SCH ×2 (10:03→20:59)
[2018-10-31] MEDS: BUDESONIDE/FORMOTEROL FUMARATE 160/4.5 60 PUFFS/INHALER INH SCH ×2 (10:03→20:54)
[2018-10-31] MEDS: methylPREDNISolone 40 MG in SYRINGE 0 ML IV SCH (10:03)
[2018-10-31] MEDS: CARVEDILOL 12.5 MG TAB PO SCH ×2 (10:04→21:00)
[2018-10-31] MEDS: guaiFENesin 600 MG TABCR PO SCH ×2 (10:04→20:55)
[2018-10-31] MEDS: ASPIRIN 81 MG ECTAB PO SCH (10:05)
[2018-10-31] MEDS: SUCRALFATE 1 GM/10 ML UDC PO SCH ×4 (10:05→20:53)
[2018-10-31] MEDS: ROFLUMILAST 500 MCG TAB PO SCH (10:06)
[2018-10-31] MEDS: TIOTROPIUM BROMIDE 5 PUFF/90 MCG INH INH SCH (10:06)
[2018-10-31] MEDS: AMLODIPINE BESYLATE 5 MG TAB PO SCH (10:07)
[2018-10-31] MEDS: DOCUSATE SODIUM/SENNA 50/8.6MG TAB PO SCH ×2 (10:08→20:54)
[2018-10-31] MEDS: POLYETHYLENE (MIRALAX) 17 GM PACK PO SCH (10:08)
[2018-10-31] MEDS: INSULIN GLARGINE SOLOSTAR 100 UNITS/ML 3 ML PEN SC SCH (10:10)
[2018-10-31] MEDS: PANTOprazole 40 MG TAB PO SCH ×2 (10:10→20:55)
--- NOTE | 2018-10-31 14:09 | Fluoroscopy Report ---
FL video swallow CLINICAL HISTORY: assess for aspiration COMPARISON STUDY: Barium swallow performed earlier today. FLUOROSCOPY TIME: 2.1 minutes. FINDINGS: No aspiration was identified with thin liquids, nectar thick liquids, pudding or crackers w ith paste. Swallowing mechanism was intact. Epiglottic inversion was normal. Laryngeal elevation was normal. IMPRESSION: 1. Intact swallowing mechanism. No tracheal aspiration. 2. Full recommendations by speech pathology to follow. Electronically signed by: Ozzy Cobian M.D. 10/31/2018 2:07 PM
[2018-10-31] MEDS: ATORVASTATIN 40 MG TAB PO SCH (20:55)
--- NOTE | 2018-10-31 21:36 | Hospitalist Progress Note ---
Date of Service October 31, 2018 Assessment & Plan (1) Dysphagia: s/p barium swallow w/o significant pathology; esophageal dysmotility seen. video swallow - no aspiration. appreciate speech therapy recs including soft bite-sized food. Cont PPI BID Cont carate qid GI follow-up post-discharge -- poor candidate for EGD at this time because of resp issues Present on Admission?: Yes (2) Acute on chronic respiratory failure with hypoxia and hypercapnia: acute component - multifactorial - COPD exacerbation, b/l pneumonia, and acute/chronic CHF. latter 2 issues resolved. still w/ ongoing COPD issues. intubated at admission -- then extubated AM of 10/19. required high-flow NC for some time then transitioned to NC O2. prolonged hospital stay because of COPD exacerbation. see below. is back to her normal home O2 amount. (3) Acute on chronic combined systolic and diastolic CHF (congestive heart failure): acute component resolved. compensated. ECHO with EF 45-50% and grade 1 diastolic dysfunction. There were wall motion abnormalities in the apex. EKG with anterolateral T wave inversions. Seen by cardiology - will need outpatient f/u for this. Cont BB. JAVAD. (4) COPD with exacerbation: Slow improvement. d/c IV solumedrol; change back to prednisone tomorrow. Start 60mg; wean every 3 days by 10mg. Most recent cxr w/o infiltrates or edema. Cont nebs q4h. Incentive cecil. Flutter valve. Cont symbicort. Cont daliresp. Cont spiriva. Cont mucinex 1200mg BID. appreciate any additional recs from Dr Vargas and pulmonary team. bronch likely deferred. (5) Abnormal EKG: anterior T wave inversions. she has apical wall motion abnormality on echo. she reports several episodes of abdominal pain radiating to her back and her ear in the weeks leading up to this admission. these episodes may be anginal equivalent. too sick for additional work-up while here due to respiratory issues. Cont BB. Cont statin. Cont asa 81mg daily. will need f/u with cardiology after d/c. (6) Elevated troponin: likely myocardial demand ischemia in setting of respiratory failure. (7) Bilateral pneumonia: completed course of IV/PO abx. cxr w/o infiltrates at this time. Resolved. (8) Hypertension: Continue home meds Needs low-dose JAVAD or ARB due to LV dysfunction (9) Hyperlipidemia: Continue statin therapy. (10) Hyperglycemia: pre-DM a1c 6% uncontrolled due to steroids increase lantus to 20 units increase novolog correction and carb ratio a tad (11) Chronic kidney disease, stage 3a: Cr stable (12) GERD (gastroesophageal reflux disease): PPI + carafate qid see 'dysphagia' above (13) DVT prophylaxis: heparin q12h PT, OT needs placement for rehab left message for on voicemail 10/29/18 to rehab Sunday or Sunday?? Subjective breathing is better. very tearful - blames it on having been NPO for her barium swallow this am. passed that as well as her video swallow. lots of reflux seen by speech therapy. soft bite sized diet advised by speech. anxious to get out of hospital. Review of Systems Constitutional: no fever Respiratory: + cough, + chest congestion and + dyspnea on exertion; no hemoptysis, no sputum production and no wheezing Cardiovascular: no chest pain Gastrointestinal: + heartburn and + dysphagia; no abdominal pain, no nausea and no vomiting Physical Exam Constitutional: no acute distress and no altered mental status ENMT: external ear and nose normal, oropharynx normal Respiratory: no respiratory distress Auscultation: + diminished lung sounds and + wheezes (occasional); no rales Cardiovascular: Rate/Rhythm: regular rate and regular rhythm Heart Sounds: normal S1 and normal S2; no murmur Vessels: posterior tibial pulses present and dorsalis pedis pulses present Extremities: no edema Gastrointestinal (Abdomen): normal bowel sounds, soft, nontender, no hepatosplenomegaly Psychiatric: Orientation: alert and oriented x 3 Mood: + depressed mood (tearful) Results & Data Vital Signs (Past 12 Hours) Vital Signs Temp Pulse Pulse Resp BP BP Pulse Ox 10/31/18 20:56 89 125/72 10/31/18 20:12 87 18 99 10/31/18 15:17 84 18 100 10/31/18 14:56 36.8 C 83 18 122/79 100 10/31/18 11:17 77 20 99 Laboratory Results Laboratory Results - last 24 hr 10/31/18 10/31/18 10/31/18 09:32 12:07 20:25 POC Glucose 161 H 146 H 209 H (1) Dysphagia Dysphagia type: unspecified Qualified Code(s): R13.10 - Dysphagia, unspecified (2) Hyperlipidemia Hyperlipidemia type: mixed hyperlipidemia Qualified Code(s): E78.2 - Mixed hyperlipidemia (3) Bilateral pneumonia Lung location: lower lobe of lung Pneumonia type: due to unspecified organism Qualified Code(s): J18.1 - Lobar pneumonia, unspecified organism (4) GERD (gastroesophageal reflux disease) Esophagitis presence: esophagitis presence not specified Qualified Code(s): K21.9 - Gastro-esophageal reflux disease without esophagitis (5) Hypertension Hypertension type: essential hypertension Qualified Code(s): I10 - Essential (primary) hypertension
[2018-11-01] MEDS: ALBUT/IPRATROP 3MG/0.5MG NEB 3 ML VIAL NEB SCH ×7 (03:24→23:10)
[2018-11-01 05:33] LABS: Hemoglobin 10.8 g/dL (12.0-16.0); Mean Corpuscular Hgb Conc 30.9 g/dL (32-36); Mean Corpuscular Volume 90.9 fL (80-100); Mean Platelet Volume 11.8 fL (7.4-10.4); Platelet Count 154 K/uL (130-400); RDW Coefficient of Variation 14.7 % (11.5-14.5); RDW Standard Deviation 48.7 fL (36.4-46.3); Red Blood Count 3.85 M/uL (4.2-5.4); White Blood Count 10.29 K/uL (4.8-10.8)
[2018-11-01 05:57] LABS: BUN Creatinine Ratio 35.2 (10-20); Calcium 8.7 mg/dl (8.5-10.1); Creatinine Clr Calc Pharmacy 58.7 ml/min; Est GFR (African American) 79.4; Est GFR (Non-African American) 68.5; Potassium 4.2 mmol/L (3.5-5.1)
[2018-11-01] MEDS: SUCRALFATE 1 GM/10 ML UDC PO SCH ×4 (08:57→21:17)
[2018-11-01] MEDS: CARVEDILOL 12.5 MG TAB PO SCH ×2 (08:59→21:17)
[2018-11-01] MEDS: ROFLUMILAST 500 MCG TAB PO SCH (09:00)
[2018-11-01] MEDS: guaiFENesin 600 MG TABCR PO SCH ×2 (09:01→21:17)
[2018-11-01] MEDS: ASPIRIN 81 MG ECTAB PO SCH (09:01)
[2018-11-01] MEDS: POLYETHYLENE (MIRALAX) 17 GM PACK PO SCH (09:01)
[2018-11-01] MEDS: AMLODIPINE BESYLATE 5 MG TAB PO SCH (09:02)
[2018-11-01] MEDS: PANTOprazole 40 MG TAB PO SCH ×2 (09:03→21:17)
[2018-11-01] MEDS: predniSONE 20 MG TAB PO SCH (09:03)
[2018-11-01] MEDS: DOCUSATE SODIUM/SENNA 50/8.6MG TAB PO SCH ×2 (09:04→21:15)
[2018-11-01] MEDS: BUDESONIDE/FORMOTEROL FUMARATE 160/4.5 60 PUFFS/INHALER INH SCH ×2 (09:06→21:17)
[2018-11-01] MEDS: TIOTROPIUM BROMIDE 5 PUFF/90 MCG INH INH SCH (09:06)
[2018-11-01] MEDS: INSULIN GLARGINE SOLOSTAR 100 UNITS/ML 3 ML PEN SC SCH (09:17)
[2018-11-01] MEDS: HEPARIN SOD 5,000 UNIT/0.5 ML VIAL SQ SCH ×2 (09:17→21:15)
[2018-11-01] MEDS: LISINOPRIL 2.5 MG TAB PO SCH (09:18)
[2018-11-01] MEDS: INSULIN ASPART 100 UNITS/ML 3 ML PEN SC SCH ×5 (13:07→21:17)
--- NOTE | 2018-11-01 20:28 | Hospitalist Progress Note ---
Date of Service November 01, 2018 Assessment & Plan (1) Dysphagia: s/p barium swallow w/o significant pathology; esophageal dysmotility seen but was mild. video swallow - no aspiration. appreciate speech therapy assistance. soft bite-sized food recommended. Cont PPI BID Cont carate qid GI follow-up post-discharge -- poor candidate for EGD at this time because of resp issues (2) Acute on chronic respiratory failure with hypoxia and hypercapnia: acute component - multifactorial - COPD exacerbation, b/l pneumonia, and acute/chronic CHF. resolved. intubated at admission -- then extubated AM of 10/19. required high-flow NC for some time then transitioned to NC O2. is back to her normal home O2 amount. (3) Acute on chronic combined systolic and diastolic CHF (congestive heart failure): acute component resolved. compensated at this time. ECHO with EF 45-50% and grade 1 diastolic dysfunction. There were wall motion abnormalities in the apex. EKG with anterolateral T wave inversions. Seen by cardiology - will need outpatient f/u for this. Patient reports having seen Dr Ball in the past. I spoke with Dr Ball who indeed saw her 3 years ago. EF at that time was normal. Cont BB. Add lisinopril 2.5mg daily. (4) COPD with exacerbation: Slow improvement. Cont prednisone 60mg daily; wean every 3 days by 10mg. Most recent cxr w/o infiltrates or edema. Cont nebs q4h. Incentive cecil. Flutter valve. Cont symbicort. Cont daliresp. Cont spiriva. Cont mucinex 1200mg BID. (5) Abnormal EKG: anterior T wave inversions. she has apical wall motion abnormality on echo. she reports several episodes of abdominal pain radiating to her back and her ear in the weeks leading up to this admission. these episodes may be anginal equivalent. too sick for additional work-up while here due to respiratory issues. Cont BB. Cont statin. Cont asa 81mg daily. I spoke with Dr Ball - [facility] - who will see her post- discharge. (6) Elevated troponin: likely myocardial demand ischemia in setting of respiratory failure. (7) Bilateral pneumonia: completed course of IV/PO abx. cxr w/o infiltrates at this time. Resolved. (8) Hypertension: Continue home meds low-dose JAVAD added. (9) Hyperlipidemia: Continue statin therapy. (10) Hyperglycemia: pre-DM a1c 6% uncontrolled due to steroids but BSGs improved today. cont lantus and novolog (11) Chronic kidney disease, stage 3a: Cr stable (12) GERD (gastroesophageal reflux disease): PPI + carafate qid see 'dysphagia' above (13) Depression: consider SSRI (14) DVT prophylaxis: heparin q12h PT, OT needs placement for rehab insurance auth for [facility] pending spoke with pt's today -- gave update, explained she may be d/c to [facility] tomorrow Subjective patient very tearful again during the visit. reports no changes in breathing. no changes in chronic swallowing complaints. eating 50% of meals. asks questions about rehab. Review of Systems Constitutional: no fever Respiratory: + cough and + dyspnea on exertion; no hemoptysis and no wheezing Cardiovascular: no chest pain Gastrointestinal: no abdominal pain, no nausea and no vomiting Psychiatric: + depression Physical Exam Constitutional: no acute distress and no altered mental status ENMT: external ear and nose normal, oropharynx normal Respiratory: no respiratory distress Auscultation: + diminished lung sounds; no rales, no rhonchi and no wheezes Cardiovascular: Rate/Rhythm: regular rate and regular rhythm Heart Sounds: normal S1 and normal S2; no murmur Vessels: posterior tibial pulses present and dorsalis pedis pulses present Extremities: no edema Gastrointestinal (Abdomen): normal bowel sounds, soft, nontender, no hepatosplenomegaly Musculoskeletal: severe kyphosis Psychiatric: Orientation: alert and oriented x 3 Mood: + depressed mood (tearful) Results & Data Vital Signs (Past 12 Hours) Vital Signs Temp Pulse Resp BP Pulse Ox 11/01/18 19:22 61 20 98 11/01/18 15:48 77 16 100 11/01/18 14:58 36.7 C 75 17 101/61 100 11/01/18 11:22 73 18 98 Laboratory Results Laboratory Results - last 24 hr 10/31/18 11/01/18 11/01/18 20:25 05:14 05:14 WBC 10.29 RBC 3.85 L Hgb 10.8 L Hct 35.0 L MCV 90.9 MCH 28.1 MCHC 30.9 L RDW Std Deviation 48.7 H RDW Coeff of Michelle 14.7 H Plt Count 154 MPV 11.8 H Sodium 138 Potassium 4.2 Chloride 100 Carbon Dioxide 37 H Anion Gap 1.0 L BUN 30 H Creatinine 0.84 Est Cr Clr Drug Dosing 58.7 Est GFR ( Amer) 79.4 Est GFR (Non-Af Amer) 68.5 BUN/Creatinine Ratio 35.2 H Glucose 93 POC Glucose 209 H Calcium 8.7 11/01/18 11/01/18 11/01/18 08:17 12:00 17:04 WBC RBC Hgb Hct MCV MCH MCHC RDW Std Deviation RDW Coeff of Michelle Plt Count MPV Sodium Potassium Chloride Carbon Dioxide Anion Gap BUN Creatinine Est Cr Clr Drug Dosing Est GFR ( Amer) Est GFR (Non-Af Amer) BUN/Creatinine Ratio Glucose POC Glucose 97 125 H 186 H Calcium (1) Dysphagia Dysphagia type: unspecified Qualified Code(s): R13.10 - Dysphagia, unspecified (2) Bilateral pneumonia Pneumonia type: due to unspecified organism Lung location: lower lobe of lung Qualified Code(s): J18.1 - Lobar pneumonia, unspecified organism (3) Hypertension Hypertension type: essential hypertension Qualified Code(s): I10 - Essential (primary) hypertension (4) Hyperlipidemia Hyperlipidemia type: mixed hyperlipidemia Qualified Code(s): E78.2 - Mixed hyperlipidemia (5) GERD (gastroesophageal reflux disease) Esophagitis presence: esophagitis presence not specified Qualified Code(s): K21.9 - Gastro-esophageal reflux disease without esophagitis (6) Depression Depression Type: unspecified Qualified Code(s): F32.9 - Major depressive disorder, single episode, unspecified
[2018-11-01] MEDS: ATORVASTATIN 40 MG TAB PO SCH (21:17)
[2018-11-02] MEDS: ACETAMINOPHEN 325 MG TAB PO PRN (02:27)
[2018-11-02] MEDS: ALBUT/IPRATROP 3MG/0.5MG NEB 3 ML VIAL NEB SCH ×3 (03:43→11:18)
[2018-11-02 06:43] LABS: BUN Creatinine Ratio 43.6 (10-20); Calcium 8.8 mg/dl (8.5-10.1); Est GFR (African American) 78.2; Est GFR (Non-African American) 67.5; Potassium 3.7 mmol/L (3.5-5.1)
[2018-11-02] MEDS: AMLODIPINE BESYLATE 5 MG TAB PO SCH (07:57)
[2018-11-02] MEDS: ROFLUMILAST 500 MCG TAB PO SCH (07:58)
[2018-11-02] MEDS: LISINOPRIL 2.5 MG TAB PO SCH (07:58)
[2018-11-02] MEDS: predniSONE 20 MG TAB PO SCH (07:58)
[2018-11-02] MEDS: guaiFENesin 600 MG TABCR PO SCH (07:59)
[2018-11-02] MEDS: ASPIRIN 81 MG ECTAB PO SCH (07:59)
[2018-11-02] MEDS: PANTOprazole 40 MG TAB PO SCH (08:00)
[2018-11-02] MEDS: CARVEDILOL 12.5 MG TAB PO SCH (08:00)
[2018-11-02] MEDS: SUCRALFATE 1 GM/10 ML UDC PO SCH ×2 (08:00→12:44)
[2018-11-02] MEDS: BUDESONIDE/FORMOTEROL FUMARATE 160/4.5 60 PUFFS/INHALER INH SCH (08:00)
[2018-11-02] MEDS: DOCUSATE SODIUM/SENNA 50/8.6MG TAB PO SCH (08:01)
[2018-11-02] MEDS: POLYETHYLENE (MIRALAX) 17 GM PACK PO SCH (08:01)
[2018-11-02] MEDS: HEPARIN SOD 5,000 UNIT/0.5 ML VIAL SQ SCH (09:17)
[2018-11-02] MEDS: INSULIN GLARGINE SOLOSTAR 100 UNITS/ML 3 ML PEN SC SCH (09:17)
[2018-11-02] MEDS: INSULIN ASPART 100 UNITS/ML 3 ML PEN SC SCH ×2 (09:19→12:43)
[2018-11-02] MEDS: TIOTROPIUM BROMIDE 5 PUFF/90 MCG INH INH SCH (09:25)
--- NOTE | 2018-11-08 01:45 | Discharge Summary ---
Date of Service date of admission - October 18, 2018 date of discharge - November 02, 2018 Admission HPI Per Admitting Provider 72 y/o F Hx COPD, HTN, HLD, diastolic CHF, history of PE and chronic hypoxic respiratory failure. Presents from home with respiratory distress. Apparently she had progressive dyspnea over the past 2 days. She arrived at the hospital tachypneic, severely hypertensive and mentating poorly. She was emergently intubated. The pt is unable to provide a history at present. Attempts to contact her have been unsuccessful at the time of admission. The ER attending was able to speak with her and noted that he did not display a command of her medical history. A history is therefore aggregated from prior medical records. Initial labs are notable for respiratory acidosis with a C02 of 90 and leukocytosis. A CXR is reported as clear. Principal Diagnosis acute/chronic hypoxic/hypercarbic respiratory failure Discharge Exam Constitutional no acute distress and no altered mental status ENMT external ear and nose normal, oropharynx normal Respiratory no respiratory distress Auscultation: + diminished lung sounds; no rales, no rhonchi and no wheezes Cardiovascular Rate/Rhythm: regular rate and regular rhythm Heart Sounds: normal S1 and normal S2; no murmur Vessels: posterior tibial pulses present and dorsalis pedis pulses present Extremities: no edema Gastrointestinal (Abdomen) normal bowel sounds, soft, nontender, no hepatosplenomegaly Psychiatric Orientation: alert and oriented x 3 Mood: + depressed mood Discharge Data Allergies Allergy/AdvReac Type Severity Reaction Status Date / Time No Known Allergies Allergy Unverified 03/11/14 01:27 Consultations 1. anime artist/critical care 2. cardiology 3. PT, OT 4. speech therapy Ordered Studies 1. CT chest - IMPRESSION: 1. Bibasilar parenchymal atelectatic and/or infiltrative change. 2. Emphysematous change. 3. Study is otherwise negative. 2. video swallow test - IMPRESSION: 1. Intact swallowing mechanism. No tracheal aspiration. 2. Full recommendations by speech pathology to follow. 3. barium swallow - IMPRESSION: 1. Technically difficult exam but no esophageal mass or stricture identified. 2. Penetration with suspected trace tracheal aspiration. 3. Mild esophageal dysmotility. Hospital Course (1) Acute on chronic respiratory failure with hypoxia and hypercapnia: Acute component was multifactorial including severe COPD exacerbation, b/l pneumonia, and acute/chronic CHF. Intubated at time of admission and then extubated AM of 10/19/18. Required high-flow NC for some time following extubation then transitioned to NC O2. She was then weaned back to her normal home O2 amount of 4 liters continuously. All problems noted above were addressed in detail. At time of discharge she had considerable deconditioning and dyspnea on exertion with minimal activity. (2) COPD with exacerbation: Treated initially with high-dose IV steroids. Scheduled nebs, inhalers and pulmonary toilet were also given. Ultimately weaned to prednisone. Remained on prednisone for the remainder of her stay. She did have to go back on IV steroids for about 48 hours later in her stay due to worsening pulmonary symptoms. As she improved she went back on PO prednisone. At discharge she will complete a SLOW prednisone taper. In addition to her usual inhalers & nebs daliresp was also given; she will be prescribed this at discharge. She had not seen pulmonary as an outpatient in several years. STRONGLY advised pulmonary follow-up within 2 weeks of discharge for ongoing pulmonary care. (3) Acute on chronic combined systolic and diastolic CHF (congestive heart failure): Acute component resolved with several doses of IV diuretic. Following diuresis she remained compensated for the remainder of her stay. ECHO with EF 45-50% and grade 1 diastolic dysfunction. There were wall motion abnormalities in the apex. EKG with anterolateral T wave inversions. Seen by cardiology - will need outpatient f/u for this. Patient reported having seen Dr Justo Ball in the past at [facility]. I spoke with Dr Ball who indeed saw her 3 years ago. EF at that time was normal and LV wall motion was normal. She remains on beta romulo. Lisinopril 2.5mg daily was also added. Recommend 20mg of lasix on a PRN basis for weight gains of more than 2-3 pounds in 1-2 days. It remains to be seen if she needs a standing dose of this. (4) Dysphagia: s/p barium swallow w/o significant pathology; esophageal dysmotility seen but was mild. video swallow - no aspiration. Seen by speech therapy and soft bite-sized food recommended. Cont PPI BID Cont carate qid GI follow-up post-discharge recommended. However she is a poor candidate for EGD because of severe respiratory issues. (5) Abnormal EKG: Anterior T wave inversions seen on EKG. She has apical wall motion abnormality on echo. She reports several episodes of abdominal pain radiating to her back and her ear in the weeks leading up to this admission. These episodes may be anginal equivalent. She was too sick for additional work-up while here due to respiratory issues. Cont BB. Cont statin. Cont asa 81mg daily. Cont low-dose JAVAD. I spoke with Dr Ball from [facility] who will see her post- discharge. (6) Elevated troponin: likely myocardial demand ischemia in setting of respiratory failure. (7) Bilateral pneumonia: Completed full course of IV/PO antibiotics while here. Repeat cxr later in her stay showed resolution of infiltrates. (8) Hypertension: Continue home meds low-dose JAVAD added. (9) Hyperlipidemia: Continue statin therapy. (10) Hyperglycemia: pre-DM a1c 6% uncontrolled due to steroids but BSGs improved prior to discharge. continue lantus 15 units daily and novolog on a sliding scale basis. there is a good chance that as her prednisone is weaned off her insulin requirements may disappear. she will need the usual BSG checks while at [facility]. (11) Chronic kidney disease, stage 3a: Cr stable at 0.8 at discharge. did have superimposed WILDER during the day with peak creatinine of 1.58. (12) GERD (gastroesophageal reflux disease): PPI + carafate qid see 'dysphagia' above (13) Depression: strongly consider SSRI upon admission to SNF. patient reported 2-3 weeks of depressive symptoms pre-hospital and during the hospitalization. Total Time Total Time Spent Total Time Spent (In Minutes): 45 Total Time Includes: Examination of the Patient, Discharge Planning, Medication Reconciliation and Communication With Other Providers Discharge Plan Discharge Items Patient Disposition: Transfer Shelter Fac Reason For Visit: COPD, CHF - RESP FAILURE Discharge Diagnosis: acute respiratory failure due to severe COPD exacerbation and mild CHF exacerbation - resolved. Back on normal O2 amount of 4 liters continuously. Discharge Goals: Diagnostic testing, Improve disease control and Therapeutic intervention Activity: Resume your previous activity Activity Comment: as tolerated Non-emergency contact: Primary Care Provider, [employer] Sales Consultant Call non-emergency contact if: you have any medication questions, your symptoms worsen and your temperature is above 100.5 Follow-up/Referrals: Renan Michael, [Physician] - (see [facility] - Dr Michael or any other provider - within 1-2 weeks for end-stage COPD.) Yohana Servin [Primary Care Provider] - (see PCP within 1 week of discharge from [facility].) Justo Ball DO [Physician] - (see Dr Ball - [facility] - in 1- 2 weeks for systolic CHF and suspected CAD.) Diet: Carb Consistent or DM2 and Heart Healthy Fluids: 1800ml (7 cups) Diet Texture: Dental soft (bite-sized) Addtl Provider Instructions: From Sukhwinder Vega - hospitalist - Patient was treated for COPD exacerbation (severe) and mild CHF exacerbation during her stay. Was on the ventilator for about 24 hours. Ultimately weaned back to her usual dose of NC O2 (4 liters continuously). Treated with IV steroids, IV antibiotics, nebs, inhalers, etc. Course complicated by hyperglycemia due to the steroids, crying spells/possible depression, heartburn, dysphagia (had video swallow test and barium swallow showing mild esophageal dysmotility only and reflux disease), severe weakness/deconditioning, and suspicion of newly-found coronary disease. Recommendations - 1. NC O2 4 liters continuously at all times. 2. counseling for depression, if available. 3. consideration of anti-depressant. 4. daily WEIGHTS on standing scale. If any weight gain of more than 2-3 pounds in 1-2 days then START lasix 20mg daily and call medical technologist chief. 5. lantus 15 units every morning. 6. novolog WITH MEALS ONLY. 7. BLOOD SUGAR CHECKS BEFORE MEALS AND AT BEDTIME. 8. DENTAL SOFT DIET TEXTURED FOODS. 9. Repeat CBC and BMP in 3-4 days. Results to medical technologist chief. Follow up -- 1. see Dr Ball, [facility], in 1-2 weeks 2. see [facility] within 1-2 weeks (if possible) -- any provider is fine Return to [facility] if -- * fevers over 100.5 degrees * worsening shortness of breath * chest pain * abdominal pain * rapid weight gain unresponsive to diuretics * any other concerns Prescriptions: New ipratropium-albuterol 0.5 mg-3 mg(2.5 mg base)/3 mL Solution For Nebulization 3 ml NEB Q6HWA Qty: 1 RF: 2 aspirin [Ecotrin Low Strength] 81 mg Tablet,Delayed Release (Dr/Ec) 81 mg PO QAM Qty: 90 RF: 3 lisinopril 2.5 mg Tablet 2.5 mg PO QAM Qty: 30 RF: 5 polyethylene glycol 3350 [Miralax] 17 gram Powder In Packet 17 g PO DAILY Qty: 30 RF: 0 pantoprazole 40 mg Tablet,Delayed Release (Dr/Ec) 40 mg PO BID Qty: 60 RF: 5 sennosides-docusate sodium [Senokot-S] 8.6-50 mg Tablet 1 tab PO BID Qty: 60 RF: 0 Lantus Solostar U-100 Insulin 100 unit/mL (3 mL) Insulin Pen 15 unit SC QAM Qty: 1 RF: 5 Daliresp 500 mcg Tablet 250 mcg PO DAILY Qty: 30 RF: 5 guaifenesin [Mucinex] 600 mg Tablet Extended Release 12hr 600 mg PO Q12 Qty: 60 RF: 0 prednisone 10 mg tablet 10 mg PO DIRECTED Qty: 30 RF: 0 furosemide [Lasix] 20 mg tablet 20 mg PO DAILY PRN (Reason: weight gain or leg edema) Qty: 30 RF: 0 Oxygen Home Liters Per Minute .ROUTE .MEDSUPPLY Qty: 1 RF: 0 Novolog Flexpen U-100 Insulin 100 unit/mL (3 mL) insulin pen 1 units SQ AC Qty: 15 RF: 1 Continued amlodipine 5 mg tablet 5 mg PO DAILY RF: 0 Spiriva with HandiHaler 18 mcg capsule, w/inhalation device 1 cap inhalation DAILY RF: 0 Symbicort 160-4.5 mcg/actuation HFA aerosol inhaler 2 puff inhalation BID RF: 0 atorvastatin 40 mg Tablet 40 mg PO HS RF: 0 carvedilol 12.5 mg Tablet 12.5 mg PO BID RF: 0 cholecalciferol (vitamin D3) [Vitamin D3] 2,000 unit Capsule 2,000 unit PO DAILY RF: 0 bupropion HCl [Wellbutrin SR] 150 mg Tablet Sustained-Release 12 Hr 150 mg PO DAILY Qty: 30 RF: 5 Changed albuterol sulfate [Proventil HFA] 90 mcg/actuation HFA aerosol inhaler 2 puff inhalation Q4H PRN (Reason: Shortness Of Breath) Qty: 1 RF: 0 Discontinued triamterene-hydrochlorothiazid 37.5-25 mg Capsule 1 cap PO DAILY RF: 0 Stand-Alone Forms: [facility] Discharge Orders: Discharge Order (Routine); Ordered 11/02/18 Ordered By: Sukhwinder Vega Admission Data Admit Date/Time: 10/18/18 22:50 Attending Provider: Sukhwinder Vega Admit Provider: Victor Manuel Velazco Primary Care Provider: Yohana Servin Other Providers: Honorio Montes De Oca ; Benjamin Bolaños ; Gabe Vargas ; IRB Approved Study,Aysha Service: Medical Other Interventions: Discharge Summary Assessment (RN) Last Done: 11/02/18 12:35 Pending Studies at Discharge: No DC Date/Time DO NOT enter until pt leaves facility: 11/02/18 13:03
== END 2018-11-02 13:03 | DRG 208 ==
LOC: ED 20:54 → 1E 22:50 → SUATTDRO 22:50 → 1E 23:38 → 2W 10-22 16:56 → 3E 10-29 03:05
DX: Z68.31 Body mass index [BMI] 31.0-31.9, adult; Z86.711 Personal history of pulmonary embolism; J44.1 Chronic obstructive pulmonary disease with (acute) exacerbation; Z79.899 Other long term (current) drug therapy; R13.10 Dysphagia, unspecified; N18.3 Chronic kidney disease, stage 3 (moderate); J96.21 Acute and chronic respiratory failure with hypoxia; E66.9 Obesity, unspecified; J96.22 Acute and chronic respiratory failure with hypercapnia; I16.0 Hypertensive urgency; I13.0 Hypertensive heart and chronic kidney disease with heart failure and stage 1 through stage 4 chronic kidney disease, or unspecified chronic kidney disease; K21.9 Gastro-esophageal reflux disease without esophagitis; R73.9 Hyperglycemia, unspecified; I50.43 Acute on chronic combined systolic (congestive) and diastolic (congestive) heart failure; J44.0 Chronic obstructive pulmonary disease with (acute) lower respiratory infection; T38.0X5A Adverse effect of glucocorticoids and synthetic analogues, initial encounter; J18.9 Pneumonia, unspecified organism; E87.1 Hypo-osmolality and hyponatremia; F41.9 Anxiety disorder, unspecified; F17.210 Nicotine dependence, cigarettes, uncomplicated; E78.5 Hyperlipidemia, unspecified

== ENCOUNTER 2020-07-07 09:52 | Observation (INO) ==
[2020-07-07 10:52] LABS: Basophils # (auto) 0.02 K/uL (0-0.2); Basophils % (auto) 0.2 %; Eosinophils # (auto) 0.13 K/uL (0-0.5); Eosinophils % (auto) 1.2 %; Hematocrit (blood only) 39.7 % (37-47); Immature Granulocytes # (auto) 0.04 K/uL (0.00-0.02); Immature Granulocytes % (auto) 0.4 %; Lymphocytes # (auto) 1.12 K/uL (1.2-3.4); Lymphocytes % (auto) 10.3 %; Mean Corpuscular Hemoglobin 27.6 pg (25-34); Mean Corpuscular Hgb Conc 30.2 g/dL (32-36); Mean Corpuscular Volume 91.5 fL (80-100); Mean Platelet Volume 12.3 fL (7.4-10.4); Monocytes # (auto) 0.38 K/uL (0.11-0.59); Monocytes % (auto) 3.5 %; Neutrophils % (auto) 84.4 %; Platelet Count 239 K/uL (130-400); RDW Coefficient of Variation 14.5 % (11.5-14.5); RDW Standard Deviation 49.1 fL (36.4-46.3); Red Blood Count 4.34 M/uL (4.2-5.4); White Blood Count 10.89 K/uL (4.8-10.8)
--- NOTE | 2020-07-07 10:55 | Emergency Department Note ---
History of Present Illness General Chief complaint: Shortness of Breath/Dyspnea Time Seen by Provider: 07/07/20 10:15 Source: EMS History of Present Illness Provider complaint: Shortness of breath 74-year-old female hospice patient presents to theEmergency department via EMS.Patient is nonverbal and unable to give any history.EMS stated that the called her because the patient was short of breath. When EMS arrived she states they stated that the oxygen machine was on but the nasal cannula was not on her.Per EMS the patient was brought to the emergency department for placement. Home Medications Medication Instructions Recorded Confirmed Type Spiriva with HandiHaler 1 cap INHALATION DAILY 10/18/18 10/18/18 History Symbicort 2 puff INHALATION BID 10/18/18 10/18/18 History amlodipine 5 mg PO DAILY 10/18/18 10/18/18 History atorvastatin 40 mg PO HS 10/18/18 10/18/18 History carvedilol 12.5 mg PO BID 10/18/18 10/18/18 History cholecalciferol (vitamin D3) 2,000 unit PO DAILY 10/18/18 10/18/18 History [Vitamin D3] Oxygen Home #1 ea 11/02/18 Rx albuterol sulfate [Proventil HFA] 2 puff INHALATION Q4H PRN #1 11/02/18 10/18/18 Rx inhaler aspirin [Ecotrin Low Strength] 81 mg PO QAM #90 tab 11/02/18 Rx bupropion HCl [Wellbutrin SR] 150 mg PO DAILY #30 ea 11/02/18 10/18/18 Rx furosemide [Lasix] 20 mg PO DAILY PRN #30 tab 11/02/18 Rx guaifenesin [Mucinex] 600 mg PO Q12 #60 tab 11/02/18 Rx insulin aspart U-100 [Novolog 1 units SQ AC #15 ml 11/02/18 Rx Flexpen U-100 Insulin] insulin glargine [Lantus Solostar 15 unit SC QAM #1 pen 11/02/18 Rx U-100 Insulin] ipratropium-albuterol 3 ml NEB Q6HWA #1 box 11/02/18 Rx lisinopril 2.5 mg PO QAM #30 tab 11/02/18 Rx pantoprazole 40 mg PO BID #60 tab 11/02/18 Rx polyethylene glycol 3350 [Miralax] 17 g PO DAILY #30 ea 11/02/18 Rx prednisone 10 mg PO DIRECTED #30 tab 11/02/18 Rx roflumilast [Daliresp] 250 mcg PO DAILY #30 tab 11/02/18 Rx sennosides-docusate sodium 1 tab PO BID #60 tab 11/02/18 Rx [Senokot-S] lorazepam 0.5 mg tablet 0.5 mg PO TID PRN #30 tab 07/15/19 Rx bisacodyl 10 mg rectal suppository 10 mg KS DAILY PRN 08/27/19 08/27/19 History bisacodyl 10 mg/30 mL enema 5 mg KS DAILY PRN 08/27/19 08/27/19 History magnesium hydroxide 400 mg/5 mL 5 ml PO DAILY PRN 08/27/19 08/27/19 History oral suspension sucralfate 100 mg/mL oral 10 ml PO BID 08/27/19 08/27/19 History suspension Allergies Allergy/AdvReac Type Severity Reaction Status Date / Time No Known Allergies Allergy Unverified 03/11/14 01:27 Past Med/Surg History Medical History (Updated 07/07/20 @ 15:50 by Corona Dutton) Anxiety Chronic diastolic congestive heart failure Chronic kidney disease, stage 3a COPD (chronic obstructive pulmonary disease) Cor pulmonale, chronic Dyslipidemia Hypertension Pulmonary embolism (2012) Pulmonary hypertension Surgical History History of esophagogastroduodenoscopy (EGD) Family History Other No significant family history Social History Smoking Status: Unknown if ever smoked packs per day: 0.5; Preferred Language: Kiswahili Communication Ability: Effective Concrete Craftsman Required: No Beliefs That Will Affect Care: None marital status: Current Living Situation: Spouse Feels Safe at Home: Yes Assistive Devices: Glasses and Walker Review of Systems Unobtainable due to reduced consciousness Physical Exam Vital Signs Vital Signs - 24 hr 07/07/20 09:58 07/07/20 09:59 07/07/20 10:00 Temperature Temperature Source Pulse Rate 110 H 111 H 112 H Pulse Rate from SpO2 Sensor 111 H 111 H 112 H Pulse Rhythm Respiratory Rate 24 22 21 Respiratory Effort / Characteristics Respiratory Depth Respiratory Pattern Blood Pressure 229/114 H Blood Pressure Mean 152 Blood Pressure Position Pulse Oximetry 100 100 100 Oxygen Delivery Method Oxygen Flow Rate Sepsis Recent Fever Within 48 Hours Sepsis New/Unexplained Change in Mental Status Sepsis Action Taken by Nursing 07/07/20 10:15 07/07/20 10:30 07/07/20 10:40 Temperature 36.6 C Temperature Source Oral Pulse Rate 107 H 103 H Pulse Rate from SpO2 Sensor 103 H Pulse Rhythm Regular Respiratory Rate 24 19 Respiratory Effort / Characteristics Short of Breath Respiratory Depth Normal Respiratory Pattern Regular Blood Pressure 229/114 H Blood Pressure Mean 152 Blood Pressure Position Sitting Pulse Oximetry 100 100 Oxygen Delivery Method Nasal Cannula Nasal Cannula Oxygen Flow Rate 4 Sepsis Recent Fever Within 48 Hours No Sepsis New/Unexplained Change in Mental Status No Sepsis Action Taken by Nursing Physician Notified 07/07/20 11:00 07/07/20 11:30 07/07/20 11:42 Temperature Temperature Source Pulse Rate 101 H 103 H 101 H Pulse Rate from SpO2 Sensor 100 H 148 H 101 H Pulse Rhythm Respiratory Rate 19 15 22 Respiratory Effort / Characteristics Respiratory Depth Respiratory Pattern Blood Pressure 166/108 H Blood Pressure Mean 127 Blood Pressure Position Pulse Oximetry 100 100 Oxygen Delivery Method Nasal Cannula Oxygen Flow Rate 4 Sepsis Recent Fever Within 48 Hours Sepsis New/Unexplained Change in Mental Status Sepsis Action Taken by Nursing 07/07/20 11:43 07/07/20 12:00 07/07/20 12:30 Temperature Temperature Source Pulse Rate 103 H 94 H 88 Pulse Rate from SpO2 Sensor 103 H 95 H Pulse Rhythm Respiratory Rate 22 17 18 Respiratory Effort / Characteristics Respiratory Depth Respiratory Pattern Blood Pressure Blood Pressure Mean Blood Pressure Position Pulse Oximetry 100 100 Oxygen Delivery Method Oxygen Flow Rate Sepsis Recent Fever Within 48 Hours Sepsis New/Unexplained Change in Mental Status Sepsis Action Taken by Nursing 07/07/20 13:00 07/07/20 13:24 07/07/20 13:30 Temperature Temperature Source Pulse Rate 85 81 85 Pulse Rate from SpO2 Sensor 82 85 Pulse Rhythm Respiratory Rate 15 15 17 Respiratory Effort / Characteristics Respiratory Depth Respiratory Pattern Blood Pressure 141/68 H 144/69 H Blood Pressure Mean 92 94 Blood Pressure Position Pulse Oximetry 100 100 Oxygen Delivery Method Oxygen Flow Rate Sepsis Recent Fever Within 48 Hours Sepsis New/Unexplained Change in Mental Status Sepsis Action Taken by Nursing 07/07/20 14:00 07/07/20 14:31 07/07/20 15:00 Temperature Temperature Source Pulse Rate 82 91 H Pulse Rate from SpO2 Sensor 83 91 H 94 H Pulse Rhythm Respiratory Rate 16 25 H Respiratory Effort / Characteristics Respiratory Depth Respiratory Pattern Blood Pressure 158/76 H 206/96 H 198/85 H Blood Pressure Mean 103 132 122 Blood Pressure Position Pulse Oximetry 100 100 100 Oxygen Delivery Method Oxygen Flow Rate 4 4 Sepsis Recent Fever Within 48 Hours Sepsis New/Unexplained Change in Mental Status Sepsis Action Taken by Nursing 07/07/20 15:31 Temperature Temperature Source Pulse Rate 92 H Pulse Rate from SpO2 Sensor 92 H Pulse Rhythm Respiratory Rate 16 Respiratory Effort / Characteristics Respiratory Depth Respiratory Pattern Blood Pressure 181/79 H Blood Pressure Mean 113 Blood Pressure Position Pulse Oximetry 100 Oxygen Delivery Method Nasal Cannula Oxygen Flow Rate 4 Sepsis Recent Fever Within 48 Hours Sepsis New/Unexplained Change in Mental Status Sepsis Action Taken by Nursing Physical Exam GENERAL: Patient appears ill CV: Normal rate, regular rhythm, normal heart sounds and intact distal pulses. There is no peripheral edema. Palpable radial pulses bue. Chest Wall: No tenderness. PULM/CHEST: Diminished breath sounds bilaterally. ABD: The abdomen is soft. MUSC/SKEL:Pelvis is stable. LYMPH: No cervical adenopathy. SKIN: Skin is warm and dry. She is not diaphoretic. Course Course 1015: The patient was evaluated in room C5. A complete history and physical exam was performed. Cardiac monitoring: An order was placed for continuous cardiac monitoring. The monitor shows a rate of 100 with Sinus rhythm Patient has a binder here from hospice. There is no form saying that the patient's advanced directives. Discussed the case with Oly partidaworker who will contact the hospice center and find out why the patient was referred here. 1043: Oly partidaworker was able to contact the hospice service. The patient is no longer on the hospice service. The patient has no living will per the who Oly spoke with. The stated that the patient is a DNI though. There are no advanced directives per the 's information.Given this information that the patient is no longer on hospice, we will obtain labs and imaging at this time. 1425: Vital signs stable. Labs show a respiratory acidosis. Imaging otherwise shows no acute findings. [facility] Letha ABDALLA notified and Patient will be admitted to Dr. Perry. Administered Medications Discontinued Medications Furosemide (Furosemide 40 Mg/4 Ml Vial) 40 mg IV NOW STA Stop: 07/07/20 15:09 Last Admin: 07/07/20 15:39 Dose: 40 mg Documented by: [id number] Medical Decision Making Laboratory Data Result diagrams: 07/07/20 10:00 07/07/20 10:00 Lab Results 07/07/20 07/07/20 07/07/20 Range/Units 10:00 10:00 10:00 WBC 10.89 H (4.8-10.8) K/uL RBC 4.34 (4.2-5.4) M/uL Hgb 12.0 (12.0-16.0) g/dL Hct 39.7 (37-47) % MCV 91.5 (80-100) fL MCH 27.6 (25-34) pg MCHC 30.2 L (32-36) g/dL RDW Std Deviation 49.1 H (36.4-46.3) fL RDW Coeff of Michelle 14.5 (11.5-14.5) % Plt Count 239 (130-400) K/uL MPV 12.3 H (7.4-10.4) fL Immature Gran % (Auto) 0.4 % Neut % (Auto) 84.4 % Lymph % (Auto) 10.3 % Douglas % (Auto) 3.5 % Eos % (Auto) 1.2 % Baso % (Auto) 0.2 % Neut # (Auto) 9.20 H (1.4-6.5) K/uL Lymph # (Auto) 1.12 L (1.2-3.4) K/uL Douglas # (Auto) 0.38 (0.11-0.59) K/uL Eos # (Auto) 0.13 (0-0.5) K/uL Baso # (Auto) 0.02 (0-0.2) K/uL Immature Gran # (Auto) 0.04 H (0.00-0.02) K/uL PT (9.0-12.0) Seconds INR (0.9-1.1) APTT (21.0-31.0) Seconds PTT Ratio VBG pH (7.36-7.41) VBG pCO2 (38-50) mmHg VBG pO2 mmHg VBG HCO3 mmol/L VBG O2 Saturation % VBG Base Excess mEq/L Barometric Pressure mm/Hg Sodium 137 (136-145) mmol/L Potassium 3.6 (3.5-5.1) mmol/L Chloride 81 L (98-107) mmol/L Carbon Dioxide 38 H (21-32) mmol/L Anion Gap 18.0 H (3-11) BUN 12 (7-18) mg/dl Creatinine 0.60 (0.6-1.2) mg/dl Est Cr Clr Drug Dosing Not Reportable Est GFR ( Amer) 102.6 Est GFR (Non-Af Amer) 88.5 BUN/Creatinine Ratio 19.8 (10-20) Glucose 176 H (70-99) mg/dl Lactate (0.4-2.0) mmol/L Calcium 10.0 (8.5-10.1) mg/dl Magnesium 1.9 (1.8-2.4) mg/dl Total Bilirubin 0.8 (0.2-1) mg/dl AST 21 (15-37) U/L ALT 22 (12-78) U/L Alkaline Phosphatase 91 (45-117) U/L Troponin I < 0.015 (0-0.045) ng/ml Total Protein 7.6 (6.4-8.2) gm/dl Albumin 3.3 L (3.4-5.0) gm/dl Globulin 4.3 H (2.5-4.0) gm/dl Albumin/Globulin Ratio 0.8 L (0.9-2) Procalcitonin < 0.05 (0-0.5) ng/ml Urine Color Urine Appearance (Clear) Urine pH (4.5-7.5) Ur Specific [place] (1.000-1.030) Urine Protein (Negative) Urine Glucose (UA) (Negative) Urine Ketones (Negative) Urine Blood (Negative) Urine Nitrite (Negative) Urine Bilirubin (Negative) Urine Urobilinogen (Negative) Ur Leukocyte Esterase (Negative) COVID-19 Eval Order SARS-CoV-2, RNA, NAAT (NEGATIVE) 07/07/20 07/07/20 07/07/20 Range/Units 10:00 11:40 11:40 WBC (4.8-10.8) K/uL RBC (4.2-5.4) M/uL Hgb (12.0-16.0) g/dL Hct (37-47) % MCV (80-100) fL MCH (25-34) pg MCHC (32-36) g/dL RDW Std Deviation (36.4-46.3) fL RDW Coeff of Michelle (11.5-14.5) % Plt Count (130-400) K/uL MPV (7.4-10.4) fL Immature Gran % (Auto) % Neut % (Auto) % Lymph % (Auto) % Douglas % (Auto) % Eos % (Auto) % Baso % (Auto) % Neut # (Auto) (1.4-6.5) K/uL Lymph # (Auto) (1.2-3.4) K/uL Douglas # (Auto) (0.11-0.59) K/uL Eos # (Auto) (0-0.5) K/uL Baso # (Auto) (0-0.2) K/uL Immature Gran # (Auto) (0.00-0.02) K/uL PT 10.2 (9.0-12.0) Seconds INR 1.0 (0.9-1.1) APTT 25.3 (21.0-31.0) Seconds PTT Ratio 1.0 VBG pH (7.36-7.41) VBG pCO2 (38-50) mmHg VBG pO2 mmHg VBG HCO3 mmol/L VBG O2 Saturation % VBG Base Excess mEq/L Barometric Pressure mm/Hg Sodium (136-145) mmol/L Potassium (3.5-5.1) mmol/L Chloride (98-107) mmol/L Carbon Dioxide (21-32) mmol/L Anion Gap (3-11) BUN (7-18) mg/dl Creatinine (0.6-1.2) mg/dl Est Cr Clr Drug Dosing Est GFR ( Amer) Est GFR (Non-Af Amer) BUN/Creatinine Ratio (10-20) Glucose (70-99) mg/dl Lactate (0.4-2.0) mmol/L Calcium (8.5-10.1) mg/dl Magnesium (1.8-2.4) mg/dl Total Bilirubin (0.2-1) mg/dl AST (15-37) U/L ALT (12-78) U/L Alkaline Phosphatase (45-117) U/L Troponin I (0-0.045) ng/ml Total Protein (6.4-8.2) gm/dl Albumin (3.4-5.0) gm/dl Globulin (2.5-4.0) gm/dl Albumin/Globulin Ratio (0.9-2) Procalcitonin (0-0.5) ng/ml Urine Color Urine Appearance (Clear) Urine pH (4.5-7.5) Ur Specific [place] (1.000-1.030) Urine Protein (Negative) Urine Glucose (UA) (Negative) Urine Ketones (Negative) Urine Blood (Negative) Urine Nitrite (Negative) Urine Bilirubin (Negative) Urine Urobilinogen (Negative) Ur Leukocyte Esterase (Negative) COVID-19 Eval [facility] SARS-[facility]-2, RNA, NAAT NEGATIVE (NEGATIVE) 07/07/20 07/07/20 07/07/20 Range/Units 12:18 12:30 15:23 WBC (4.8-10.8) K/uL RBC (4.2-5.4) M/uL Hgb (12.0-16.0) g/dL Hct (37-47) % MCV (80-100) fL MCH (25-34) pg MCHC (32-36) g/dL RDW Std Deviation (36.4-46.3) fL RDW Coeff of Michelle (11.5-14.5) % Plt Count (130-400) K/uL MPV (7.4-10.4) fL Immature Gran % (Auto) % Neut % (Auto) % Lymph % (Auto) % Douglas % (Auto) % Eos % (Auto) % Baso % (Auto) % Neut # (Auto) (1.4-6.5) K/uL Lymph # (Auto) (1.2-3.4) K/uL Douglas # (Auto) (0.11-0.59) K/uL Eos # (Auto) (0-0.5) K/uL Baso # (Auto) (0-0.2) K/uL Immature Gran # (Auto) (0.00-0.02) K/uL PT (9.0-12.0) Seconds INR (0.9-1.1) APTT (21.0-31.0) Seconds PTT Ratio VBG pH 7.28 L (7.36-7.41) VBG pCO2 87 H (38-50) mmHg VBG pO2 40 mmHg VBG HCO3 40 mmol/L VBG O2 Saturation 75.3 % VBG Base Excess 9.1 mEq/L Barometric Pressure 739.7 mm/Hg Sodium (136-145) mmol/L Potassium (3.5-5.1) mmol/L Chloride (98-107) mmol/L Carbon Dioxide (21-32) mmol/L Anion Gap (3-11) BUN (7-18) mg/dl Creatinine (0.6-1.2) mg/dl Est Cr Clr Drug Dosing Est GFR ( Amer) Est GFR (Non-Af Amer) BUN/Creatinine Ratio (10-20) Glucose (70-99) mg/dl Lactate 0.7 (0.4-2.0) mmol/L Calcium (8.5-10.1) mg/dl Magnesium (1.8-2.4) mg/dl Total Bilirubin (0.2-1) mg/dl AST (15-37) U/L ALT (12-78) U/L Alkaline Phosphatase (45-117) U/L Troponin I (0-0.045) ng/ml Total Protein (6.4-8.2) gm/dl Albumin (3.4-5.0) gm/dl Globulin (2.5-4.0) gm/dl Albumin/Globulin Ratio (0.9-2) Procalcitonin (0-0.5) ng/ml Urine Color Yellow Urine Appearance Clear (Clear) Urine pH 6.5 (4.5-7.5) Ur Specific [place] 1.021 (1.000-1.030) Urine Protein 2+ H (Negative) Urine Glucose (UA) Negative (Negative) Urine Ketones 3+ H (Negative) Urine Blood 1+ H (Negative) Urine Nitrite Negative (Negative) Urine Bilirubin Negative (Negative) Urine Urobilinogen Negative (Negative) Ur Leukocyte Esterase Negative (Negative) COVID-19 Eval Order SARS-CoV-2, RNA, NAAT (NEGATIVE) Imaging Data Radiologist's Impression: CT SCAN OF THE BRAIN WITHOUT IV CONTRAST CLINICAL HISTORY: Change in mental status. COMPARISON STUDY: No priors. TECHNIQUE: Unenhanced axial CT scan of the brain is performed from the vertex to the skull base. A dose lowering technique was utilized adhering to the principles of ALARA. The patient was scanned twice due to motion artifact. CT DOSE: 1911.58 mGy.cm FINDINGS: Brain parenchyma: There are age-related involutional changes noting mild subcortical and periventricular microangiopathic change. There is no hemorrhage, mass effect, or evidence of acute territorial ischemia by CT criteria. Mason- white matter differentiation is preserved. No extra-axial fluid collection is seen. Ventricles, sulci, cisterns: Prominent secondary to involutional change. Intracranial vasculature: There is atherosclerotic calcification of the cavernous carotid and vertebral arteries. Calvarium: Unremarkable. Sinuses and mastoids: Mild to moderate mucosal thickening is noted in the maxillary antra. The remaining Paranasal sinuses are clear. The mastoid air cells are well pneumatized. Orbits: The bony orbits are grossly intact. There are bilateral ocular lens implants. IMPRESSION: There is no hemorrhage, mass effect, or evidence of acute terr itorial ischemia by CT criteria noting a motion degraded examination. ACT 112: Negative or not required by law. Electronically signed by: Burak Brennan M.D. 07/07/2020 11:20 AM Dictated: 07/07/20 1118 Transcribed: 07/07/20 1118 XR chest 1V portable CLINICAL HISTORY: SEPSIS COMPARISON STUDY: 10/28/2018 FINDINGS: The heart is borderline enlarged. There is no failure. There is no foc al pulmonary consolidation. There are no pleural effusions. There is underlying pulmonary emphysema IMPRESSION: 1. Pulmonary emphysema 2. No acute findings ACT 112: Negative or not required by law. Electronically signed by: Cheo Storey M.D. 07/07/2020 11:00 AM Dictated: 07/07/20 1058 Transcribed: 07/07/20 105 ECG Data Indication: + SOB/dyspnea Rate (beats per minute): 106 Rhythm: + sinus tachycardia ECG Intervals/blocks: + Normal KS and + Normal QT-c Additional Comments: QRS 72 MDM Narrative 1015: The patient was evaluated in room C5. A complete history and physical exam was performed. Cardiac monitoring: An order was placed for continuous cardiac monitoring. The monitor shows a rate of 100 with Sinus rhythm Patient has a binder here from hospice. There is no form saying that the patient's advanced directives. Discussed the case with Oly energy risk management analyst who will contact the hospice center and find out why the patient was referred here. 1043: Oly energy risk management analyst was able to contact the hospice service. The patient is no longer on the hospice service. The patient has no living will per the who Oly spoke with. The stated that the patient is a DNI though. There are no advanced directives per the 's information.Given th is information that the patient is no longer on hospice, we will obtain labs and imaging at this time. 1425: Vital signs stable. Labs show a respiratory acidosis. Imaging otherwise shows no acute findings. Patient will be admitted to the [facility] hospitalist team for placement. Letha ABDALLA notified and Patient will be admitted to Dr. Perry. Impression & Plan COPD (chronic obstructive pulmonary disease) Discharge Plan Visit Data Chief Complaint: Shortness of Breath/Dyspnea ED Provider: Corona Dutton Discharge Problem: COPD (chronic obstructive pulmonary disease) Patient Disposition: Being Evaluated by Hospitalist Forms Stand Alone Forms: My [facility] Prescriptions Prescriptions: No Action lorazepam 0.5 mg tablet 0.5 mg PO TID PRN (Reason: anxiety) Qty: 30 RF: 0 bisacodyl [Dulcolax (bisacodyl)] 10 mg suppository 10 mg KS DAILY PRNRF: 0 Fleet Bisacodyl 10 mg/30 mL enema 5 mg KS DAILY PRNRF: 0 magnesium hydroxide [Milk of Magnesia] 400 mg/5 mL suspension 5 ml PO DAILY PRNRF: 0 sucralfate 100 mg/mL suspension 10 ml PO BID RF: 0 amlodipine 5 mg tablet 5 mg PO DAILY RF: 0 Spiriva with HandiHaler 18 mcg capsule, w/inhalation device 1 cap inhalation DAILY RF: 0 Symbicort 160-4.5 mcg/actuation HFA aerosol inhaler 2 puff inhalation BID RF: 0 atorvastatin 40 mg Tablet 40 mg PO HS RF: 0 carvedilol 12.5 mg Tablet 12.5 mg PO BID RF: 0 cholecalciferol (vitamin D3) [Vitamin D3] 2,000 unit Capsule 2,000 unit PO DAILY RF: 0 ipratropium-albuterol 0.5 mg-3 mg(2.5 mg base)/3 mL Solution For Nebulization 3 ml NEB Q6HWA Qty: 1 RF: 2 aspirin [Ecotrin Low Strength] 81 mg Tablet,Delayed Release (Dr/Ec) 81 mg PO QAM Qty: 90 RF: 3 lisinopril 2.5 mg Tablet 2.5 mg PO QAM Qty: 30 RF: 5 polyethylene glycol 3350 [Miralax] 17 gram Powder In Packet 17 g PO DAILY Qty: 30 RF: 0 pantoprazole 40 mg Tablet,Delayed Release (Dr/Ec) 40 mg PO BID Qty: 60 RF: 5 sennosides-docusate sodium [Senokot-S] 8.6-50 mg Tablet 1 tab PO BID Qty: 60 RF: 0 Lantus Solostar U-100 Insulin 100 unit/mL (3 mL) Insulin Pen 15 unit SC QAM Qty: 1 RF: 5 Daliresp 500 mcg Tablet 250 mcg PO DAILY Qty: 30 RF: 5 guaifenesin [Mucinex] 600 mg Tablet Extended Release 12hr 600 mg PO Q12 Qty: 60 RF: 0 prednisone 10 mg tablet 10 mg PO DIRECTED Qty: 30 RF: 0 furosemide [Lasix] 20 mg tablet 20 mg PO DAILY PRN (Reason: weight gain or leg edema) Qty: 30 RF: 0 (DME) Oxygen Home Liters Per Minute See Dose Instructions .ROUTE .MEDSUPPLY Qty: 1 RF: 0 bupropion HCl [Wellbutrin SR] 150 mg Tablet Sustained-Release 12 Hr 150 mg PO DAILY Qty: 30 RF: 5 albuterol sulfate [Proventil HFA] 90 mcg/actuation HFA aerosol inhaler 2 puff inhalation Q4H PRN (Reason: Shortness Of Breath) Qty: 1 RF: 0 Novolog Flexpen U-100 Insulin 100 unit/mL (3 mL) insulin pen 1 units SQ AC Qty: 15 RF: 1 Referrals Referrals: Yohana Servin [Primary Care Provider] -
--- NOTE | 2020-07-07 11:01 | XRay Report ---
XR chest 1V portable CLINICAL HISTORY: SEPSIS COMPARISON STUDY: 10/28/2018 FINDINGS: The heart is borderline enlarged. There is no failure. There is no focal pulmonary consolid ation. There are no pleural effusions. There is underlying pulmonary emphysema IMPRESSION: 1. Pulmonary emphysema 2. No acute findings ACT 112: Negative or not required by law. Electronically signed by: Cheo Storey M.D. 07/07/2020 11:00 AM
[2020-07-07 11:10] LABS: Partial Thromboplastin Time 25.3 Seconds (21.0-31.0); Prothrombin Time 10.2 Seconds (9.0-12.0)
--- NOTE | 2020-07-07 11:21 | CT Scan Report ---
CT SCAN OF THE BRAIN WITHOUT IV CONTRAST CLINICAL HISTORY: Change in mental status. COMPARISON STUDY: No priors. TECHNIQUE: Unenhanced axial CT scan of the brain is performed from the vertex to the skull base. A do se lowering technique was utilized adhering to the principles of ALARA. The patient was scanned twice due to motion artifact. CT DOSE: 1911.58 mGy.cm FINDINGS: Brain parenchyma: There are age-related involutional changes noting mild subcortical and periventric ular microangiopathic change. There is no hemorrhage, mass effect, or evidence of acute territorial i schemia by CT criteria. Mason-white matter differentiation is preserved. No extra-axial fluid collecti on is seen. Ventricles, sulci, cisterns: Prominent secondary to involutional change. Intracranial vasculature: There is atherosclerotic calcification of the cavernous carotid and vertebr al arteries. Calvarium: Unremarkable. Sinuses and mastoids: Mild to moderate mucosal thickening is noted in the maxillary antra. The remain ing Paranasal sinuses are clear. The mastoid air cells are well pneumatized. Orbits: The bony orbits are grossly intact. There are bilateral ocular lens implants. IMPRESSION: There is no hemorrhage, mass effect, or evidence of acute territorial ischemia by CT natividadt vania noting a motion degraded examination. ACT 112: Negative or not required by law. Electronically signed by: Burak Brennan M.D. 07/07/2020 11:20 AM
[2020-07-07 11:57] LABS: Alanine Aminotransferase 22 U/L (12-78); Albumin Globulin Ratio 0.8 (0.9-2); Albumin Level 3.3 gm/dl (3.4-5.0); Alkaline Phosphatase 91 U/L (45-117); BUN Creatinine Ratio 19.8 (10-20); Bilirubin,Total 0.8 mg/dl (0.2-1); Blood Urea Nitrogen 12 mg/dl (7-18); Carbon Dioxide 38 mmol/L (21-32); Chloride 81 mmol/L (98-107); Est GFR (African American) 102.6; Est GFR (Non-African American) 88.5; Globulin 4.3 gm/dl (2.5-4.0); Glucose 176 mg/dl (70-99); Potassium 3.6 mmol/L (3.5-5.1); Sodium 137 mmol/L (136-145); Total Protein 7.6 gm/dl (6.4-8.2); Troponin I < 0.015 ng/ml (0-0.045)
[2020-07-07 11:59] LABS: Aspartate Aminotransferase 21 U/L (15-37); Magnesium 1.9 mg/dl (1.8-2.4)
[2020-07-07 12:55] LABS: Base Excess VBG 9.1 mEq/L; Oxygen Saturation VBG 75.3 %; pH VBG 7.28 (7.36-7.41)
--- NOTE | 2020-07-07 13:02 | Electrocardiogram Report ---
Test Reason : Blood Pressure : / mmHG Vent. Rate : 106 BPM Atrial Rate : 106 BPM P-R Int : 140 ms QRS Dur : 072 ms QT Int : 316 ms P-R-T Axes : 066 059 078 degrees QTc Int : 419 ms Poor data quality, interpretation may be adversely affected Sinus tachycardia Otherwise normal ECG When compared with ECG of 20-OCT-2018 20:11, T wave inversion no longer evident in Anterolateral leads Confirmed by Huang Snow ([id number]) on 07/07/2020 1:01:28 PM Referred By: REFERRED SELF Confirmed By:Huang Snow
--- NOTE | 2020-07-07 14:17 | History & Physical Report ---
Date of Service July 07, 2020 Assessment & Plan (1) Hospice care: - Admit to med surg on Obs - Currently on hospice, [facility] evaluated her last yesterday and she was apparently verbal at that time and co sob. Appears that the is unable to take care of her at home. [facility] is working with [facility] to have her placed there. called 911 and pt was brought to the ER. She is currently nonverbal but nursing notes from the hospice binder sitting at bedside state that she is verbal at times. (2) Chronic diastolic congestive heart failure: - Last ECHO with EF 45-50% and grade 1 diastolic dysfunction. There were wall motion abnormalities in the apex. EKG with anterolateral T wave inversions. - Previously followed with Dr. Ball with cardiology 4 years ago. - Pt is significantly swollen lower extremities, will place a Andrade start on IV Lasix 40 mg x 1, appears that she is on Lasix at home, unknown at the last time was given this medication as it is scheduled as needed. There is surrounding erythema bilaterally, likely chronic venous stasis changes versus an acute cellulitic infection as it is bilateral. Pt has Right foot toenail which is bent backwards but still attached, unable to be removed, does not appear to have acute infection, skin care. (3) COPD (chronic obstructive pulmonary disease): - Currently on 4 L O2 via NC, titrate O2 sats for 88-92% - current sats are in high 90s. - Unsure if the patient has been using inhalers at home or taking medications (4) Cor pulmonale, chronic: - Chronic - Med rec has not been completed - will await to see janette meds pending rate control and diuretics. Pt on hospice so will hold all home meds for now. (5) Hyperlipidemia: - Chronic (6) Hypertension: - BP 158/76 - await med rec, continue antihypertensives per outpt meds (7) Anxiety: - Stable, appears she has benzo as outpatient for anxiety, hold for now to see if awakens more. (8) DVT prophylaxis: - darren, scds [place] - phone: [phone] - I attempted to discuss the plan of care with him but did not answer. soaking tank worker Kim: [phone] CODE: DNR/DNI Dispo: From home, likely to remain in the hospital x 1-2 days on hospice for observation. History of Present Illness Primary Care Provider: Yohana DiorJulia Malathi This is a 74 yo F with PMhx of COPD, HTN, HLD, diastolic CHF, history of PE and chronic hypoxic respiratory failure. The patient is nonverbal and asleep, unable to provide HPI or ROS. Patient presents from home after having a bout of shortness of breath where she then became more anxious and was attempting to switch her oxygen tubing from the concentrator to portable tank, became more anxious about this and then became more disoriented, which prompted to call EMS. The patient has been on hospice with [facility] for more than 1 year, and it appears that her is no longer able to care for her at home. She does have a low hospital bed at home and has nurses come into the home to check on her. Yesterday morning nursing came to visit and noticed that the patient had worsening edema in her lower extremities, appeared to be more swollen, and that the patient was verbal and complained and of more shortness of breath. Patient was noncompliant with advice from nursing to elevate her legs (note binder is at bedside), and apparently took her medications yesterday, and was told that if things worsen to call them again. A revocation of hospice was signed recently by the patient per case management, however that has not been processed. Hospice at [facility] was being arranged as an outpatient. Her social services coordinator, Kim, can be reached at [phone]. Allergies Allergy/AdvReac Type Severity Reaction Status Date / Time No Known Allergies Allergy Unverified 03/11/14 01:27 Home Medications Medication Instructions Recorded Confirmed Type Spiriva with HandiHaler 1 cap INHALATION DAILY 10/18/18 10/18/18 History Symbicort 2 puff INHALATION BID 10/18/18 10/18/18 History amlodipine 5 mg PO DAILY 10/18/18 10/18/18 History atorvastatin 40 mg PO HS 10/18/18 10/18/18 History carvedilol 12.5 mg PO BID 10/18/18 10/18/18 History cholecalciferol (vitamin D3) 2,000 unit PO DAILY 10/18/18 10/18/18 History [Vitamin D3] Oxygen Home #1 ea 11/02/18 Rx albuterol sulfate [Proventil HFA] 2 puff INHALATION Q4H PRN #1 11/02/18 10/18/18 Rx inhaler aspirin [Ecotrin Low Strength] 81 mg PO QAM #90 tab 11/02/18 Rx bupropion HCl [Wellbutrin SR] 150 mg PO DAILY #30 ea 11/02/18 10/18/18 Rx furosemide [Lasix] 20 mg PO DAILY PRN #30 tab 11/02/18 Rx guaifenesin [Mucinex] 600 mg PO Q12 #60 tab 11/02/18 Rx insulin aspart U-100 [Novolog 1 units SQ AC #15 ml 11/02/18 Rx Flexpen U-100 Insulin] insulin glargine [Lantus Solostar 15 unit SC QAM #1 pen 11/02/18 Rx U-100 Insulin] ipratropium-albuterol 3 ml NEB Q6HWA #1 box 11/02/18 Rx lisinopril 2.5 mg PO QAM #30 tab 11/02/18 Rx pantoprazole 40 mg PO BID #60 tab 11/02/18 Rx polyethylene glycol 3350 [Miralax] 17 g PO DAILY #30 ea 11/02/18 Rx prednisone 10 mg PO DIRECTED #30 tab 11/02/18 Rx roflumilast [Daliresp] 250 mcg PO DAILY #30 tab 11/02/18 Rx sennosides-docusate sodium 1 tab PO BID #60 tab 11/02/18 Rx [Senokot-S] lorazepam 0.5 mg tablet 0.5 mg PO TID PRN #30 tab 07/15/19 Rx bisacodyl 10 mg rectal suppository 10 mg OR DAILY PRN 08/27/19 08/27/19 History bisacodyl 10 mg/30 mL enema 5 mg OR DAILY PRN 08/27/19 08/27/19 History magnesium hydroxide 400 mg/5 mL 5 ml PO DAILY PRN 08/27/19 08/27/19 History oral suspension sucralfate 100 mg/mL oral 10 ml PO BID 08/27/19 08/27/19 History suspension Past Med/Surg History Medical History (Updated 07/07/20 @ 15:50 by Corona Dutton) Anxiety Chronic diastolic congestive heart failure Chronic kidney disease, stage 3a COPD (chronic obstructive pulmonary disease) Cor pulmonale, chronic Dyslipidemia Hypertension Pulmonary embolism (2013) Pulmonary hypertension Surgical History History of esophagogastroduodenoscopy (EGD) Family History Other No significant family history Social History Smoking Status: Unknown if ever smoked packs per day: 0.5; Hx Alcohol Use: No Hx Substance Use: No Preferred Language: Cypriot Communication Ability: Unable Communication Ability Comment: Pt. unable to verbalize needs Pest Control Service Representative Required: No Beliefs That Will Affect Care: None marital status: Current Living Situation: Spouse Current Living Situation Comment: Lives w/ spouse at home Feels Safe at Home: Declines to Answer Assistive Devices: Oxygen - Continuous Review of Systems Review of Systems: Unobtainable due to cognitive status Physical Exam Physical Exam: General: Asleep, does not respond to verbal stimuli, does not wake up to sternal rub but moans occasionally, nonverbal, + obese, chronically ill appearing Head: Normocephalic, atraumatic ENT: PERRL, EOMI, no pharyngeal exudate, mucous membranes moist, + poor dentition, Chest: +faint crackles at bases bilaterally, diminished throughout, O2 at 4 L via NC with sats at 98%, + barrel chested, + accessory muscle use, +belly breathing Cardiac: Regular rate and rhythm, + soft HUGH, +mild JVD, normal peripheral pulses, good capillary refill Abdominal: NABS hypoactive x 4 quadrants, soft, + mildly distended, nontender to palpation, no rebound or guarding Extremities: + chronic venous stasis changes, poor foot care, R great toe nail is broken backwards, no acute bleeding. 3+ pitting edema BLE up to knees with mild erythema. calfs nontender to palpation Neuro: Does moan when talked to, no other verbal communication, strength not assessed, unable to test peripheral sensation. Results & Data Results & Data ([facility] [place]) Vital Signs (Past 12 Hours) Vital Signs Temp Pulse Resp BP Pulse Ox 07/07/20 13:00 85 15 07/07/20 12:30 88 18 07/07/20 12:00 94 H 17 100 07/07/20 11:43 103 H 22 100 02/10/21 11:42 101 H 22 166/108 H 100 07/07/20 11:30 103 H 15 07/07/20 11:00 101 H 19 100 07/07/20 10:30 103 H 19 100 07/07/20 10:15 36.6 C 107 H 24 229/114 H 100 07/07/20 10:00 112 H 21 100 07/07/20 09:59 111 H 22 100 07/07/20 09:58 110 H 24 229/[address] SCAN OF THE BRAIN WITHOUT IV CONTRAST CLINICAL HISTORY: Change in mental status. COMPARISON STUDY: No priors. TECHNIQUE: Unenhanced axial CT scan of the brain is performed from the vertex to the skull base. A dose lowering technique was utilized adhering to the principles of ALARA. The patient was scanned twice due to motion artifact. CT DOSE: 1911.58 mGy.cm FINDINGS: Brain parenchyma: There are age-related involutional changes noting mild subcortical and periventricular microangiopathic change. There is no hemorrhage, mass effect, or evidence of acute territorial ischemia by CT criteria. Mason- white matter differentiation is preserved. No extra-axial fluid collection is seen. Ventricles, sulci, cisterns: Prominent secondary to involutional change. Intracranial vasculature: There is atherosclerotic calcification of the cavernous carotid and vertebral arteries. Calvarium: Unremarkable. Sinuses and mastoids: Mild to moderate mucosal thickening is noted in the maxillary antra. The remaining Paranasal sinuses are clear. The mastoid air cells are well pneumatized. Orbits: The bony orbits are grossly intact. There are bilateral ocular lens implants. IMPRESSION: There is no hemorrhage, mass effect, or evidence of acute territorial ischemia by CT criteria noting a motion degraded examination. XR chest 1V portable CLINICAL HISTORY: SEPSIS COMPARISON STUDY: 10/28/2018 FINDINGS: The heart is borderline enlarged. There is no failure. There is no focal pulmonary consolidation. There are no pleural effusions. There is underlying pulmonary emphysema IMPRESSION: 1. Pulmonary emphysema 2. No acute findings ECG Additional Comments: Vent. Rate : 106 BPM Atrial Rate : 106 BPM P-R Int : 140 ms QRS Dur : 072 ms QT Int : 316 ms P-R-T Axes : 066 059 078 degrees QTc Int : 419 ms Poor data quality, interpretation may be adversely affected Sinus tachycardia Otherwise normal ECG When compared with ECG of 20-OCT-2018 20:11, T wave inversion no longer evident in Anterolateral leads Confirmed by Huang Snow ([id number]) on 07/07/2020 1:01:28 PM Code Status & VTE Plan Code Status DNR/DNI Supervising Physician Co-Signing Physician Notes Patient was seen and examined independently I discussed the case with Letha Brizuela PAC I reviewed pertinent past medical social family history and also the plan of care and agree with the plan of care. Patient is a history of diastolic heart failure and respiratory Failure with hyp oxia chronic who presents after failing home care being on hospice therapy for these issues. Patient is mostly nonverbal. Has history of cor pulmonale and she has poor hygiene to her feet with marked scaling and toes which of her toenails is almost ripped off and is bleeding. Her cannot care for only patient is in the hospital under the direction of her outpatient hospice services for eventual placement On examination the patient was mostly nonverbal she had a regular cardiac rhythm with normal heart tones her lungs were diminished and she was not cooperative with deep breaths her abdomen normoactive bowel sounds are distant extremities are with 1-2+ edema bilaterally with erythematous changes bilaterally circumferentially consistent with chronic venous stasis dermatitis and she had marked scaling and crusting and cracking to her feet consistent with likely tinea with elongated toenails with the great toenail on the right foot mostly ripped off but not loose enough to be removed. Patient will brought into our Facility continue her home medication has been given some diuretics help her lower extremity swelling consider podiatry consultation Any exceptions will be noted below PG Care Time/CCT Total # of Minutes Spent Total Time Spent with Patient: Total time spent is greater than 50% in coordination of care (as documented) at patient's floor/unit and/or counseling patient: Coding Level of Care Code 01778 OBS Care - Level 3 Diagnoses Hospice care Z51.5 Chronic diastolic congestive heart failure I50.32 COPD (chronic obstructive pulmonary disease) J44.9 Cor pulmonale, chronic I27.81 Hyperlipidemia E78.2 Hyperlipidemia type: mixed hyperlipidemia Hypertension I10 Hypertension type: essential hypertension Anxiety F41.9 DVT prophylaxis Z29.9 (1) Hyperlipidemia Hyperlipidemia type: mixed hyperlipidemia Qualified Code(s): E78.2 - Mixed hyperlipidemia (2) Hypertension Hypertension type: essential hypertension Qualified Code(s): I10 - Essential (primary) hypertension
[2020-07-07] MEDS ORDERED: FUROSEMIDE 40 MG/4 ML VIAL IV STA (15:08)
[2020-07-07 15:42] LABS: Appearance Urine Clear (Clear); Bilirubin Urine Negative (Negative); Blood Urine 1+ (Negative); Color Urine Yellow; Glucose Urine UA Negative (Negative); Ketones Urine 3+ (Negative); Leukocyte Esterase Urine Negative (Negative); Nitrite Urine Negative (Negative); Protein Urine 2+ (Negative); Specific Gravity Urine 1.021 (1.000-1.030); Urobilinogen Urine Negative (Negative); pH Urine 6.5 (4.5-7.5)
[2020-07-07 15:51] LABS: Epithelial Cell Urine >30 /lpf (0-5); Mucus Urine Present (None Prsent)
[2020-07-07 15:52] LABS: Bacteria Urine 1+ (Negative); WBC Urine 0-5 /hpf (0-5)
[2020-07-07] MEDS ORDERED: ATROPINE SULFATE 1% OP OINT PER APPLICATION CHARGE OP PRN (17:13)
[2020-07-07] MEDS ORDERED: GLUCOSE 10 TABS/TUBE PO PRN (17:13)
[2020-07-07] MEDS ORDERED: CARBOHYDRATES FOR HYPOGLYCEMIA PO PRN (17:13)
[2020-07-07] MEDS ORDERED: GLUCAGON FOR INJ 1 MG VIAL SQ PRN (17:13)
[2020-07-07] MEDS ORDERED: GLUCOSE 40% GEL 15 GM TUBE PO PRN (17:13)
[2020-07-07] MEDS ORDERED: INSULIN ASPART 100 UNITS/ML 3 ML PEN SC SCH (17:13)
[2020-07-07] MEDS ORDERED: SCOPOLAMINE 1.5 MG TDSY TD SCH (17:13)
[2020-07-07] MEDS ORDERED: ONDANSETRON INJ 2 MG/ML 2 ML VIAL IV PRN (17:13)
[2020-07-07] MEDS ORDERED: ACETAMINOPHEN 325 MG TAB PO PRN (17:13)
[2020-07-07] MEDS ORDERED: DEXTROSE 50% 50 ML SYRINGE IV PRN (17:13)
[2020-07-07] MEDS ORDERED: MoRPHine SULFATE 4 MG/ML 1 ML CARP\\VIAL IV PRN (17:13)
[2020-07-07] MEDS: CHECK SCOPOLAMINE PATCH PLACEMENT SCH (17:16)
[2020-07-07] MEDS ORDERED: LIDOCAINE HCL 1% 20 ML VIAL ONE (17:54)
[2020-07-07] MEDS ORDERED: Nursing to Pharmacy Communication SCH (18:15)
[2020-07-07] MEDS ORDERED: LIDOCAINE HCL 1% 20 ML VIAL INFIL ONE (18:45)
[2020-07-07] MEDS: NYSTATIN/TRIAMCIN OINT 15 GM TUBE EXT SCH (20:40)
--- NOTE | 2020-07-07 21:31 | Podiatry Consultation ---
Date of Consultation July 07, 2020 Assessment & Plan (1) Dermatophytosis of nail: (2) Contusion of great toe with damage to nail: Patient seen, evaluated and treated. Total nail avulsion completed with out incident. Procedure in detail: Attention was directed to the surgical toe. The area surrounding the skin lesion was prepared and draped in the usual aseptic manner. The toe was prepped with povidone-iodine solution. A standard digital block was performed, using a 3-mL syringe and a 27-gauge needle. 3 mL of 1% lidocaine was utilized in a digital block producing adequate anesthesia. A wait of five minutes allowed the block to become effective. The nail plate was then gently pulled free with a hemostat. Dry, sterile, dressing was applied consisting of 2x2 gauze and coban. The patient tolerated anesthesia and the procedure well Encounter type: initial encounter Laterality: left Qualified Code(s): S90.212A - Contusion of left great toe with damage to nail, initial encounter Present on Admission?: Yes History of Present Illness Attending Physician: Justino Cordova MD History of Present Illness Patient seen at bedside. She does not immediately respond to questioning and history is obtained through provider documentation. Patient has a history of diastolic heart failure and respiratory Failure with hypoxia chronic who presents after failing home care being on hospice therapy for these issues. Patient has history of cor pulmonale and she has poor hygiene to her feet with marked scaling and toes which of her toenails is almost ripped off and is bleeding. Her cannot care for only patient is in the hospital under the direction of her outpatient hospice services for eventual placement On examination the patient was mostly nonverbal she had a regular cardiac rhythm with normal heart tones her lungs were diminished and she was not cooperative with deep breaths her abdomen normoactive bowel sounds are distant extremities are with 1-2+ edema bilaterally with erythematous changes bilaterally circumferentially consistent with chronic venous stasis dermatitis and she had marked scaling and crusting and cracking to her feet consistent with likely tinea with elongated toenails with the great toenail on the right foot mostly ripped off but not loose enough to be removed. Allergies Allergy/AdvReac Type Severity Reaction Status Date / Time No Known Allergies Allergy Unverified 03/11/14 01:27 Home Medications Medication Instructions Recorded Confirmed Type Spiriva with HandiHaler 1 cap INHALATION DAILY 10/18/18 10/18/18 History Symbicort 2 puff INHALATION BID 10/18/18 10/18/18 History amlodipine 5 mg PO DAILY 10/18/18 10/18/18 History atorvastatin 40 mg PO HS 10/18/18 10/18/18 History carvedilol 12.5 mg PO BID 10/18/18 10/18/18 History cholecalciferol (vitamin D3) 2,000 unit PO DAILY 10/18/18 10/18/18 History [Vitamin D3] Oxygen Home #1 ea 11/02/18 Rx albuterol sulfate [Proventil HFA] 2 puff INHALATION Q4H PRN #1 11/02/18 10/18/18 Rx inhaler aspirin [Ecotrin Low Strength] 81 mg PO QAM #90 tab 11/02/18 Rx bupropion HCl [Wellbutrin SR] 150 mg PO DAILY #30 ea 11/02/18 10/18/18 Rx furosemide [Lasix] 20 mg PO DAILY PRN #30 tab 11/02/18 Rx guaifenesin [Mucinex] 600 mg PO Q12 #60 tab 11/02/18 Rx insulin aspart U-100 [Novolog 1 units SQ AC #15 ml 11/02/18 Rx Flexpen U-100 Insulin] insulin glargine [Lantus Solostar 15 unit SC QAM #1 pen 11/02/18 Rx U-100 Insulin] ipratropium-albuterol 3 ml NEB Q6HWA #1 box 11/02/18 Rx lisinopril 2.5 mg PO QAM #30 tab 11/02/18 Rx pantoprazole 40 mg PO BID #60 tab 11/02/18 Rx polyethylene glycol 3350 [Miralax] 17 g PO DAILY #30 ea 11/02/18 Rx prednisone 10 mg PO DIRECTED #30 tab 11/02/18 Rx roflumilast [Daliresp] 250 mcg PO DAILY #30 tab 11/02/18 Rx sennosides-docusate sodium 1 tab PO BID #60 tab 11/02/18 Rx [Senokot-S] lorazepam 0.5 mg tablet 0.5 mg PO TID PRN #30 tab 07/15/19 Rx bisacodyl 10 mg rectal suppository 10 mg [place] DAILY PRN 08/27/19 08/27/19 History bisacodyl 10 mg/30 mL enema 5 mg [place] DAILY PRN 08/27/19 08/27/19 History magnesium hydroxide 400 mg/5 mL 5 ml PO DAILY PRN 08/27/19 08/27/19 History oral suspension sucralfate 100 mg/mL oral 10 ml PO BID 08/27/19 08/27/19 History suspension Patient History Medical History (Updated 07/07/20 @ 21:27 by Trev Gutierrez DPM, MS) Anxiety Chronic diastolic congestive heart failure Chronic kidney disease, stage 3a COPD (chronic obstructive pulmonary disease) Cor pulmonale, chronic Dyslipidemia Hypertension Pulmonary embolism (2012) Pulmonary hypertension Surgical History History of esophagogastroduodenoscopy (EGD) Family History Other No significant family history Social History Smoking Status: Unknown if ever smoked packs per day: 0.5; Hx Alcohol Use: No Hx Substance Use: No Preferred Language: Barbadian Communication Ability: Unable Communication Ability Comment: Pt. unable to verbalize needs [employer] Plant Instructor Required: No Beliefs That Will Affect Care: None marital status: Current Living Situation: Spouse Current Living Situation Comment: Lives w/ spouse at home Feels Safe at Home: Declines to Answer Assistive Devices: Oxygen - Continuous Review of Systems Review of Systems: All systems reviewed & are unremarkable except as noted in HPI & below Constitutional: as per Subjective / HPI Eyes: as per Subjective / HPI Ear, Nose, Mouth, Throat: as per Subjective / HPI Respiratory: as per Subjective / HPI Cardiovascular: as per Subjective / HPI Gastrointestinal: as per Subjective / HPI Genitourinary: as per Subjective / HPI Musculoskeletal: as per Subjective / HPI Integumentary: as per Subjective / HPI Neurologic: as per Subjective / HPI Psychiatric: as per Subjective / HPI Endocrine: as per Subjective / HPI Hematologic / Lymphatic: as per Subjective / HPI Allergy / Immunological: as per Subjective / HPI Results & Data ([facility]) Vital Signs (Past 12 Hours) Vital Signs Temp Pulse Pulse Resp BP BP Pulse Ox 07/07/20 16:55 36.6 C 97 H 18 190/85 H 97 07/07/20 16:31 81 18 100 02/10/21 16:30 81 16 145/62 H 100 07/07/20 16:00 85 13 172/67 H 100 07/07/20 15:31 92 H 16 181/79 H 100 07/07/20 15:00 198/85 H 100 07/07/20 14:31 91 H 25 H 206/96 H 100 07/07/20 14:00 82 16 158/76 H 100 07/07/20 13:30 85 17 144/69 H 100 07/07/20 13:24 81 15 141/68 H 100 07/07/20 13:00 85 15 07/07/20 12:30 88 18 07/07/20 12:00 94 H 17 100 07/07/20 11:43 103 H 22 100 07/07/20 11:42 101 H 22 166/108 H 100 07/07/20 11:30 103 H 15 07/07/20 11:00 101 H 19 100 07/07/20 10:30 103 H 19 100 07/07/20 10:15 36.6 C 107 H 24 229/114 H 100 07/07/20 10:00 112 H 21 100 07/07/20 09:59 111 H 22 100 07/07/20 09:58 110 H 24 229/114 H 100
[2020-07-08] MEDS: INSULIN ASPART 100 UNITS/ML 3 ML PEN SC SCH ×3 (00:43→12:46)
[2020-07-08] MEDS: CHECK SCOPOLAMINE PATCH PLACEMENT SCH ×2 (00:45→08:06)
[2020-07-08] MEDS: EUCERIN CR 120 GM JAR EXT PRN ×2 (01:18→08:33)
[2020-07-08] MEDS: MoRPHine SULFATE 2 MG/ML CARP IV PRN ×2 (01:26→06:16)
--- NOTE | 2020-07-08 07:41 | Hospitalist Progress Note ---
Date of Service July 08, 2020 Assessment & Plan (1) Hospice care: - Admit to med surg on Obs - Currently on hospice, [facility] evaluated her last yesterday and she was apparently verbal at that time and co sob. Appears that the is unable to take care of her at home. [facility] is working with [facility] to have her placed there. called 911 and pt was brought to the ER. She is currently nonverbal but nursing notes from the hospice binder sitting at bedside state that she is verbal at times. (2) Chronic diastolic congestive heart failure: - Last ECHO with EF 45-50% and grade 1 diastolic dysfunction. There were wall motion abnormalities in the apex. EKG with anterolateral T wave inversions. - Previously followed with Dr. Ball with cardiology 4 years ago. - Pt is significantly swollen lower extremities, will place a Andrade start on IV Lasix 40 mg x 1, appears that she is on Lasix at home, unknown at the last time was given this medication as it is scheduled as needed. There is surrounding erythema bilaterally, likely chronic venous stasis changes versus an acute cellulitic infection as it is bilateral. Pt has Right foot toenail which is bent backwards but still attached, unable to be removed, does not appear to have acute infection, skin care. (3) COPD (chronic obstructive pulmonary disease): - Currently on 4 L O2 via NC, titrate O2 sats for 88-92% - current sats are in high 90s. - Unsure if the patient has been using inhalers at home or taking medications (4) Cor pulmonale, chronic: - Chronic - Med rec has not been completed - will await to see janette meds pending rate control and diuretics. Pt on hospice so will hold all home meds for now. (5) Hyperlipidemia: - Chronic (6) Hypertension: - BP 158/76 - await med rec, continue antihypertensives per outpt meds (7) Anxiety: - Stable, appears she has benzo as outpatient for anxiety, hold for now to see if awakens more. (8) DVT prophylaxis: - darren, scds [place] - phone: [phone] - I attempted to discuss the plan of care with him but did not answer. burlap worker Kim: [phone] CODE: DNR/DNI Dispo: From home, likely to remain in the hospital x 1-2 days on hospice for observation. Admission and Anticipated Discharge Date Admission Date: July 07, 2020 Results & Data Results & Data ([facility]) Vital Signs (Past 12 Hours) Vital Signs Temp Pulse Resp BP Pulse Ox 07/08/20 06:44 36.8 C 109 H 18 146/77 H 93 07/08/20 01:25 96 H 18 164/77 H 95 07/07/20 22:52 36.1 C L 92 H 18 142/75 H 100 PG Care Time/CCT Total # of Minutes Spent Total Time Spent with Patient: Total time spent is greater than 50% in coordination of care (as documented) at patient's floor/unit and/or counseling patient: Coding Diagnoses Hospice care Z51.5 Chronic diastolic congestive heart failure I50.32 COPD (chronic obstructive pulmonary disease) J44.9 Cor pulmonale, chronic I27.81 Hyperlipidemia E78.2 Hyperlipidemia type: mixed hyperlipidemia Hypertension I10 Hypertension type: essential hypertension Anxiety F41.9 DVT prophylaxis Z29.9 (1) Hyperlipidemia Hyperlipidemia type: mixed hyperlipidemia Qualified Code(s): E78.2 - Mixed hyperlipidemia (2) Hypertension Hypertension type: essential hypertension Qualified Code(s): I10 - Essential (primary) hypertension
[2020-07-08] MEDS: NYSTATIN/TRIAMCIN OINT 15 GM TUBE EXT SCH (08:27)
[2020-07-08] MEDS ORDERED: FUROSEMIDE 20 MG in SYRINGE 0 ML IV ONE (11:00)
--- NOTE | 2020-07-08 12:00 | Discharge Summary ---
Date of Service July 08, 2020 Admission HPI Per Admitting Provider This is a 74 yo F with PMhx of COPD, HTN, HLD, diastolic CHF, history of PE and chronic hypoxic respiratory failure. The patient is nonverbal and asleep, unable to provide HPI or ROS. Patient presents from home after having a bout of shortness of breath where she then became more anxious and was attempting to switch her oxygen tubing from the concentrator to portable tank, became more anxious about this and then became more disoriented, which prompted to call EMS. The patient has been on hospice with [facility] for more than 1 year, and it appears that her is no longer able to care for her at home. She does have a low hospital bed at home and has nurses come into the home to check on her. Yesterday morning nursing came to visit and noticed that the patient had worsening edema in her lower extremities, appeared to be more swollen, and that the patient was verbal and complained and of more shortness of breath. Patient was noncompliant with advice from nursing to elevate her legs (note binder is at bedside), and apparently took her medications yesterday, and was told that if things worsen to call them again. A revocation of hospice was signed recently by the patient per case management, however that has not been processed. Hospice at [facility] was being arranged as an outpatient. Her social work faculty member, Kim, can be reached at [phone]. Principal Diagnosis acute hypoxic respiratory failure CHF Discharge Exam Constitutional well developed and + ill appearing; + not well nourished and no acute distress Eyes PERRL, conjunctivae normal, anicteric sclerae ENMT Mouth: oral mucous membranes not dry Respiratory + labored breathing; + abnormal respiratory effort and no respiratory distress Auscultation: + crackles, + rales and + rhonchi; + lungs not clear to auscultation and no wheezes Cardiovascular Rate/Rhythm: regular rate and regular rhythm Heart Sounds: no murmur and no cardiac rub Vessels: normal peripheral pulses and radial pulses present; no JVD Extremities: + edema Gastrointestinal (Abdomen) Inspection/Auscultation: abdomen normal to inspection and normal bowel sounds; abdomen not distended Percussion/Palpation: abdomen soft; abdomen nontender, no guarding, abdomen not rigid and no hepatosplenomegaly Musculoskeletal Head/Neck/Chest: normocephalic and head atraumatic Spine: no cervical spinal tenderness, no cervical muscular tenderness, no thoracic spinal tenderness and no lumbar spinal tenderness Skin no rashes, warm and dry Neurologic CN's II-XI intact bilaterally and moves all extremities Motor/Sensory: no tremor and no sensory deficit Psychiatric Orientation: + not alert Apperance: appropriately groomed; not disheveled Eye Contact: + poor eye contact Affect: + affect not euthymic Genitourinary no CVA tenderness Discharge Data Allergies Allergy/AdvReac Type Severity Reaction Status Date / Time No Known Allergies Allergy Unverified 03/11/14 01:27 Consultations 07/07/20 13:17 ED Decision to Admit Stat 07/07/20 15:23 Consult Podiatry Routine 07/07/20 17:13 Consult Case Management - Discharge Planning Routine Consult Palliative Care Routine Ordered Studies 07/07/20 10:40 CT head/brain wo con Stat Hospital Course (1) Acute on chronic respiratory failure with hypoxia and hypercapnia: copious secretions, scopalamine patch in place suctioning per nursing VBG 7.28/pCO2 87/pO2 40 confirmed 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 2-11 Podiatry removed the toenail (3) Chronic diastolic congestive heart failure: - Last ECHO with EF 45-50% and grade 1 diastolic dysfunction. There were wall motion abnormalities in the apex. EKG with anterolateral T wave inversions. - Previously followed with Dr. Ball with cardiology 4 years ago. - Pt is significantly swollen lower extremities, will place a Andrade start on IV Lasix 40 mg x 1, appears that she is on Lasix at home, unknown at the last time was given this medication as it is scheduled as needed. There is surrounding erythema bilaterally, likely chronic venous stasis changes versus an acute cellulitic infection as it is bilateral. 2-11 lasix 20mg IV once given (4) COPD (chronic obstructive pulmonary disease): - Currently on 4 L O2 via NC, titrate O2 sats for 88-92% - current sats are in high 90s. - Unsure if the patient has been using inhalers at home or taking medications (5) Hospice care: - Admit to med surg on Obs - Currently on hospice, [facility] evaluated her last yesterday and she was apparently verbal at that time and co sob. Appears that the is unable to take care of her at home. [facility] is working with [facility] to have her placed there. called 911 and pt was brought to the ER. She is currently nonverbal but nursing notes from the hospice binder sitting at bedside state that she is verbal at times. 2-11 patient not improving, not a candidate for intubation or bipap transfer to inpatient hospice (6) Cor pulmonale, chronic: - Chronic - Med rec has not been completed - will await to see janette meds p ending rate control and diuretics. Pt on hospice so will hold all home meds for now. (7) Hyperlipidemia: - Chronic (8) Hypertension: - BP 158/76 - await med rec, continue antihypertensives per outpt meds (9) Anxiety: - Stable, appears she has benzo as outpatient for anxiety, hold for now to see if awakens more. (10) DVT prophylaxis: - teds, scds [place] - phone: [phone] - I attempted to discuss the plan of care with him but did not answer. skid worker Kim: [phone] CODE: DNR/DNI Dispo: From home, likely to remain in the hospital x 1-2 days on hospice for observation. Total Time Total Time Spent Total Time Spent (In Minutes): 40 Total Time Includes: Examination of the Patient, Discharge Planning, Medication Reconciliation and Communication With Other Providers Discharge Plan Discharge Items Patient Disposition: Hospice - Medical Facility Reason For Visit: SOB Discharge Diagnosis: hypoxic respiratory failure Activity: Resume your previous activity Non-emergency contact: Primary Care Provider Call non-emergency contact if: you have any medication questions Follow-up/Referrals: Yohana Servin [Primary Care Provider] - Diet: Regular Addtl Attending Provider Instructions: Hospice care per nursing facility Pending Studies at Discharge: No Stand-Alone Forms: My Localist, Smoking Cessation Skilled Items Patient informed of condition?: Yes DNR: Yes Discharge Level of Care: Skilled Communicable Disease: No Discharge Prognosis: Deteriorating Lines: Peripheral IV Urinary Catheter: Yes Medications and DC Order Prescriptions: New scopolamine base [Transderm-Scop] 1 mg over 3 days Patch 3 Day 1.5 mg transdermal Q72H Qty: 24 RF: 0 ondansetron HCl (PF) 4 mg/2 mL Solution 4 mg IV Q4H PRN (Reason: nausea and vomiting) 30 Days Qty: 50 RF: 0 morphine 10 mg/5 mL solution 2.5 mg PO Q6H PRN (Reason: pain) Qty: 100 RF: 0 Continued lorazepam 0.5 mg tablet 0.5 mg PO TID PRN (Reason: anxiety) Qty: 30 RF: 0 bisacodyl [Dulcolax (bisacodyl)] 10 mg suppository 10 mg TN DAILY PRNRF: 0 Fleet Bisacodyl 10 mg/30 mL enema 5 mg TN DAILY PRNRF: 0 magnesium hydroxide [Milk of Magnesia] 400 mg/5 mL suspension 5 ml PO DAILY PRNRF: 0 sucralfate 100 mg/mL suspension 10 ml PO BID RF: 0 amlodipine 5 mg tablet 5 mg PO DAILY RF: 0 Spiriva with HandiHaler 18 mcg capsule, w/inhalation device 1 cap inhalation DAILY RF: 0 Symbicort 160-4.5 mcg/actuation HFA aerosol inhaler 2 puff inhalation BID RF: 0 atorvastatin 40 mg Tablet 40 mg PO HS RF: 0 carvedilol 12.5 mg Tablet 12.5 mg PO BID RF: 0 cholecalciferol (vitamin D3) [Vitamin D3] 2,000 unit Capsule 2,000 unit PO DAILY RF: 0 ipratropium-albuterol 0.5 mg-3 mg(2.5 mg base)/3 mL Solution For Nebulization 3 ml NEB Q6HWA Qty: 1 RF: 2 aspirin [Ecotrin Low Strength] 81 mg Tablet,Delayed Release (Dr/Ec) 81 mg PO QAM Qty: 90 RF: 3 lisinopril 2.5 mg Tablet 2.5 mg PO QAM Qty: 30 RF: 5 polyethylene glycol 3350 [Miralax] 17 gram Powder In Packet 17 g PO DAILY Qty: 30 RF: 0 pantoprazole 40 mg Tablet,Delayed Release (Dr/Ec) 40 mg PO BID Qty: 60 RF: 5 sennosides-docusate sodium [Senokot-S] 8.6-50 mg Tablet 1 tab PO BID Qty: 60 RF: 0 Daliresp 500 mcg Tablet 250 mcg PO DAILY Qty: 30 RF: 5 guaifenesin [Mucinex] 600 mg Tablet Extended Release 12hr 600 mg PO Q12 Qty: 60 RF: 0 prednisone 10 mg tablet 10 mg PO DIRECTED Qty: 30 RF: 0 furosemide [Lasix] 20 mg tablet 20 mg PO DAILY PRN (Reason: weight gain or leg edema) Qty: 30 RF: 0 (DME) Oxygen Home Liters Per Minute See Dose Instructions .ROUTE .MEDSUPPLY Qty: 1 RF: 0 bupropion HCl [Wellbutrin SR] 150 mg Tablet Sustained-Release 12 Hr 150 mg PO DAILY Qty: 30 RF: 5 albuterol sulfate [Proventil HFA] 90 mcg/actuation HFA aerosol inhaler 2 puff inhalation Q4H PRN (Reason: Shortness Of Breath) Qty: 1 RF: 0 Novolog Flexpen U-100 Insulin 100 unit/mL (3 mL) insulin pen 1 units SQ AC Qty: 15 RF: 1 Discontinued Lantus Solostar U-100 Insulin 100 unit/mL (3 mL) Insulin Pen 15 unit SC QAM Qty: 1 RF: 5 Admission Data Admit Date/Time: 07/07/20 14:39 Attending Provider: Amparo Huertas Admit Provider: Justino Cordova Primary Care Provider: Yohana Servin Other Providers: Justino Cordova ; Malina Perez ; Justino Rincon ; [facility], Coding Level of Care Code 01177 OBS Care - Discharge Diagnoses Acute on chronic respiratory failure with hypoxia and hypercapnia J96.21; J96.22 Contusion of great toe with damage to nail S90.212A Encounter type: initial encounter Laterality: left Chronic diastolic congestive heart failure I50.32 COPD (chronic obstructive pulmonary disease) J44.9 Hospice care Z51.5 Cor pulmonale, chronic I27.81 Hyperlipidemia E78.2 Hyperlipidemia type: mixed hyperlipidemia Hypertension I10 Hypertension type: essential hypertension Anxiety F41.9 DVT prophylaxis Z29.9
[2020-07-08] MEDS ORDERED: ALBUT/IPRATROP 3MG/0.5MG NEB 3 ML VIAL NEB STA (13:40)
== END 2020-07-08 16:20 | disposition hospice, inpatient (51) ==
LOC: 2N 09:52 → ED 09:52 → SUATTDRO 14:39 → 2N 16:03